=== PATIENT | female | born 1950 | race Caucasian/White ===

== ENCOUNTER 2016-05-12 12:53 | Outpatient (CLI) | payer OTHER, MEDICARE, MEDICAID ==
[~2016-05-12] VITALS: Ht 167.6 cm; Wt 120.0 kg
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
[2016-05-12] MEDS ORDERED: ASCO1TAB36 PO (13:16)
[2016-05-12] MEDS ORDERED: VITA1CAP PO (13:16)
[2016-05-12] MEDS ORDERED: ASPI-999 PO (13:16)
[2016-05-12] MEDS ORDERED: LORA10TA54 PO (13:16)
[2016-05-12] MEDS ORDERED: METF500T4 PO (13:16)
[2016-05-12] MEDS ORDERED: LISI-556 PO (13:16)
[2016-05-12] MEDS ORDERED: MELO7.5T46 PO (13:16)
[2016-05-12] MEDS ORDERED: FURO40TA4 PO (13:16)
[2016-05-12] MEDS ORDERED: GLUC1CAP37 PO (13:16)
[2016-05-12] MEDS ORDERED: ACET-2650 PO (13:16)
[2016-05-12] MEDS ORDERED: CHOL20003 PO (13:16)
[2016-05-12] MEDS ORDERED: CARV25TA PO (13:16)
[2016-05-12] MEDS ORDERED: UBID200C16 PO (13:16)
[2016-05-12] MEDS ORDERED: MULT-35 PO (13:16)
[2016-05-12] MEDS ORDERED: FLUT9.9S NS (13:16)
[2016-05-12] MEDS ORDERED: RANI-515 PO (13:16)
[2016-05-12] MEDS ORDERED: GLIM4TAB PO (13:16)
[2016-05-12] MEDS ORDERED: SIMV40TA4 PO (13:16)
[2016-05-12 13:25] VITALS: BP 127/70
[2016-05-12 14:17] LABS: BASOPHILS # (AUTO) 0.1 10^3/uL (0.0-0.1); BASOPHILS % (AUTO) 1 % (0-10); EOSINOPHILS # (AUTO) 0.2 10^3/uL (0.0-0.3); EOSINOPHILS % (AUTO) 3 % (0-10); LYMPHOCYTES # (AUTO) 1.6 X 10^3 (1.0-4.0); LYMPHOCYTES % (AUTO) 22 % (12-44); MEAN CORPUSCULAR HEMOGLOBIN 30 PG (25-34); MEAN CORPUSCULAR HGB CONC 33 G/DL (32-36); MEAN CORPUSCULAR VOLUME 91 FL (80-99); MEAN PLATELET VOLUME 10.6 FL (7.4-10.4); MONOCYTES # (AUTO) 0.5 X 10^3 (0.0-1.0); MONOCYTES % (AUTO) 6 % (0-12); NEUTROPHILS # (AUTO) 5.2 X 10^3 (1.8-7.8); NEUTROPHILS % (AUTO) 69 % (42-75); PLATELET COUNT 262 10^3/uL (130-400); RED BLOOD COUNT 4.25 10^6/uL (4.35-5.85); RED CELL DISTRIBUTION WIDTH 12.5 % (10.0-14.5); WHITE BLOOD COUNT 7.5 10^3/uL (4.3-11.0)
[2016-05-12 14:39] LABS: ALBUMIN 4.3 G/DL (3.2-4.5); BILIRUBIN,TOTAL 0.4 MG/DL (0.1-1.0); CALCIUM 9.6 MG/DL (8.5-10.1); CREATININE SERUM 1.53 MG/DL (0.60-1.30); POTASSIUM 3.7 MMOL/L (3.6-5.0)
== END 2016-05-12 16:05 | disposition home or self-care (01) ==
LOC: PREOP 12:53
PROVIDERS: ATTEND Orthopaedic Surgery
DX: Z01.810 Encounter for preprocedural cardiovascular examination (principal); Z01.812 Encounter for preprocedural laboratory examination; Z11.2 Encounter for screening for other bacterial diseases; S43.422A Sprain of left rotator cuff capsule, initial encounter; V99.XXXA Unspecified transport accident, initial encounter; Y99.8 Other external cause status
CPT/HCPCS: 36415; 80053; 85025; 87081; 93005

== ENCOUNTER 2016-05-19 08:10 | Day surgery (SDC) | payer OTHER, MEDICARE, MEDICAID ==
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
[~2016-05-19] VITALS: Ht 167.6 cm; Wt 120.0 kg
[~2016-05-19 08:10] MED LIST: ACET-2650 PO; ASCO1TAB36 PO; ASPI-999 PO; CARV25TA PO; CHOL20003 PO; FLUT9.9S NS; FURO40TA4 PO; GLIM4TAB PO; GLUC1CAP37 PO; LISI-556 PO; LORA10TA54 PO; MELO7.5T46 PO; METF500T4 PO; MULT-35 PO; RANI-515 PO; SIMV40TA4 PO; UBID200C16 PO; VITA1CAP PO
[2016-05-19] MEDS ORDERED: CLINDAMYCIN 600 MG/50 ML IVPB 50 ML IV ONE ×2 (08:14→08:15)
--- NOTE | 2016-05-19 08:41 | Progress Note-Pre Operative ---
Pre-Operative Progress Note H&P Reviewed The H&P was reviewed, patient examined and no changes noted. Date H&P Reviewed: May 19, 2016 Time H&P Reviewed: 08:41 Pre-Operative Diagnosis: left rotator cuff tear and acromioclavicular post traumatic arthritis WANDA FAY MD May 19, 2016 08:41
[2016-05-19 08:44] VITALS: BP 116/65
--- NOTE | 2016-05-19 08:44 | Progress Note-Post Operative ---
Post-Operative Progess Note Intensivist Geovanny Garibay Pre-Operative Diagnosis left rotator cuff tear and acromioclavicular post traumatic arthritis Post-Operative Diagnosis left rotator cuff tear, SLAP tear and post traumatic acromioclavicular arthritis Post-Op Procedure Note Date of Procedure: May 19, 2016 Name of Procedure: left shoulder arthroscopic biceps tenotomy, acromioplasty, distal clavicle excision and open rotator cuff repair Anesthesia Type GETA plus interscalene block Estimated blood loss (mL): minimal Packing: none Specimen(s) collected none WANDA FAY MD May 19, 2016 08:43
[2016-05-19] MEDS ORDERED: ROPIVACAINE 5MG/ML 30ML VIAL ONE (08:57)
[2016-05-19] MEDS ORDERED: MIDAZOLAM 2 MG/2 ML (VERSED) VIAL ONE ×2 (08:58)
[2016-05-19] MEDS ORDERED: oxyCODONE/APAP 5/325MG (PERCOCET 5) TABLET PO PRN (09:00)
[2016-05-19] MEDS ORDERED: morphine PF (DURAMORPH) 10 MG/10 ML AMP ONE (09:08)
[2016-05-19] MEDS ORDERED: BUPIVACAINE 0.25% 30 ML (SENSORCAINE) VIAL ONE (09:08)
[2016-05-19] MEDS ORDERED: SUCCINYLCHOLINE INJ 100 MG/5 ML SYR ONE (09:22)
[2016-05-19] MEDS ORDERED: proPOfol 200 MG/20 ML (DIPRIVAN) VIAL IV ONE (09:22)
[2016-05-19] MEDS ORDERED: LIDOCAINE PF 2% 10 ML (XYLOCAINE) AMP ONE (09:22)
[2016-05-19] MEDS ORDERED: SEVOFLURANE (ULTANE) 15 ML INHAL SOLN ONE ×2 (09:22→11:21)
[2016-05-19] MEDS ORDERED: fentaNYL INJECTION 100 MCG/2 ML AMP ONE (09:22)
[2016-05-19] MEDS ORDERED: ONDANSETRON 4 MG/2 ML (SDV) Z0FRAN ONE (09:22)
[2016-05-19] MEDS ORDERED: LACTATED RINGERS 1,000 ML IV ONE ×2 (09:22→11:06)
[2016-05-19] MEDS ORDERED: FAMOTIDINE 20MG/2ML IV (PEPCID) IV ONE (09:30)
[2016-05-19] MEDS: LACTATED RINGERS 1,000 ML IV PRN ×2 (09:31→11:12)
[2016-05-19] MEDS ORDERED: ROCURONIUM 50 MG/5 ML (ZEMURON) VIAL IV ONE (10:38)
[2016-05-19] MEDS ORDERED: NEOSTIGMINE (BLOXIVERZ ) 1 MG/1ML 10 ML VIAL ONE (10:48)
[2016-05-19] MEDS ORDERED: GLYCOPYRROLATE 0.2 MG/ML (ROBINUL) 2 ML VIAL ONE (10:48)
[2016-05-19] MEDS ORDERED: MEPERIDINE (DEMEROL) INJ 50 MG/ML IVP PRN (11:45)
[2016-05-19] MEDS ORDERED: ONDANSETRON 4 MG/2 ML (SDV) Z0FRAN IVP PRN (11:45)
[2016-05-19] MEDS ORDERED: morphine INJ 10 MG/ML 1ML (SYR OR VIAL) IVP PRN (11:45)
[2016-05-19 12:50] VITALS: BP 111/72
[2016-05-19 13:20] VITALS: BP 109/57
[2016-05-19] MEDS ORDERED: OXYC-471 PO (13:40)
[2016-05-19 13:50] VITALS: BP 105/57
--- NOTE | 2016-05-19 14:34 | Anesthesia-Peripheral Nerve Bl ---
Procedure Start/Stop Time Date of Procedure: May 19, 2016 Start Time: 09:07 Stop Time: 09:15 Peripheral Nerve Block Peripheral Nerve Blockade Risk/Benefits/Alternatives discussed, including IV injection leading to complications or seizures, nerve irritation or damage, pneumothorax, total spinal anesthesia, injection, and/or bleeding. Approach: left interscalene Indication: Surgical Anesthesia Specifically requested for management of pain by: Patient Condition Vital Signs Vital Signs Date Time Temp Pulse Resp B/P Pulse Ox O2 Delivery O2 Flow Rate FiO2 05/19/16 08:44 97.6 79 16 116/65 97 Room Air Patient Condition: Awake Indication torn left rotator cuff Procedure Prepartation: Chlorhexidine Position: Supine Charlotte: Short-bevel Needle (s) Size: 22g 2" Technique: Infiltration, Nerve Stimulation Motor response or parethesia o: strong biceps with some deltoid reponse at .6 ma mA: 0.6 Depth (cm): 1 Sedation Given: Midazolam Injectate: ropivacaine Concentration %: 0.5 Volume (ml): 30 Epinephrine used: No Narrative Injection was made incrementally with constant monitoring. Aspiration every (mls): 5 Blood Aspirated: No Pain on injection noted: No Normal Resistance on injection: Yes Events Events: None:easy well tolerated Sucess: Complete Patient Conditon Post Peripheral Nerve Block Post Peripheral Nerve Block Vital Signs: Blood Pressure: Systolic Diastolic Heart Rate Blood Pressure Systolic: 116 Blood Pressure Diastolic: 65 Pulse Rate (adult): 79 CYNTHIA ESPINOZA CRNA May 19, 2016 14:34
[2016-05-19] MEDS ORDERED: ONDANSETRON 4 MG/2 ML (SDV) Z0FRAN IVP ONE (14:45)
[2016-05-19] MEDS ORDERED: PROMETHAZINE INJ 25 MG/ML (PHENERGAN) AMP IVP ONE (16:15)
[2016-05-19 17:35] VITALS: BP 105/57
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
== END 2016-05-19 17:35 | disposition home or self-care (01) ==
LOC: SDC 08:10
PROVIDERS: ATTEND Orthopaedic Surgery
DX: S46.012A Strain of muscle(s) and tendon(s) of the rotator cuff of left shoulder, initial encounter (principal); M19.112 Post-traumatic osteoarthritis, left shoulder; S43.432A Superior glenoid labrum lesion of left shoulder, initial encounter; V99.XXXA Unspecified transport accident, initial encounter; Y99.8 Other external cause status; E11.9 Type 2 diabetes mellitus without complications; I10 Essential (primary) hypertension; E78.5 Hyperlipidemia, unspecified; K21.9 Gastro-esophageal reflux disease without esophagitis; Z79.899 Other long term (current) drug therapy
CPT/HCPCS: 82962

== ENCOUNTER → 2017-05-12 | Outpatient (CLI) | payer MEDICARE, MEDICAID ==
[~2017-05-12] MED LIST changes: +LORA-714 PO; -LORA10TA54 PO; +OXYC-471 PO
== END ==
LOC: RAD 14:14
PROVIDERS: ATTEND Family Medicine
DX: Z12.31 Encounter for screening mammogram for malignant neoplasm of breast (principal)
CPT/HCPCS: 77067

== ENCOUNTER → 2017-09-22 | Outpatient (CLI) | payer MEDICARE, MEDICAID ==
[~2017-09-22] MED LIST changes: -METF500T4 PO; +METF500T5 PO
== END ==
LOC: CARD 13:13
PROVIDERS: ATTEND Internal Medicine Cardiovascular Disease
DX: I50.9 Heart failure, unspecified (principal); E11.9 Type 2 diabetes mellitus without complications; R60.0 Localized edema; Z90.12 Acquired absence of left breast and nipple; I08.1 Rheumatic disorders of both mitral and tricuspid valves
CPT/HCPCS: 93306

== ENCOUNTER → 2017-09-26 | Outpatient (CLI) | payer MEDICARE, MEDICAID ==
[~2017-09-26] VITALS: Ht 167.6 cm; Wt 116.1 kg
[~2017-09-26] MED LIST changes: +CATHETER FLUSH 10 ML SYR IV PRN; +REGADENOSON 0.4 MG/5 ML SYR (LEXISCAN) IV ONE
[2017-09-26 09:07] VITALS: BP 140/75
[2017-09-26 09:11] VITALS: BP 98/65
[2017-09-26 09:13] VITALS: BP 124/68
--- NOTE | 2017-09-26 15:08 | STRESS TEST ---
DATE OF SERVICE: 09/26/2017 LEXISCAN MYOVIEW STRESS TEST REPORT REFERRING PHYSICIAN: Dr. Zackery Jensen. Baseline heart rate is 66. Baseline blood pressure 140/75. Baseline EKG sinus rhythm with no ischemic changes. In summary, the patient was injected with 10.92 mCi of technetium-99 Myoview and the resting images were obtained. Then, the patient received 0.4 mg of Lexiscan followed by 29.0 mCi of technetium-99 Myoview. Throughout the test, there were no EKG changes. The resting and stress images were reviewed and compared in the short axis, horizontal long axis, and vertical long axis views. Review of the images showed extracardiac attenuation with increase gastric and intestinal uptake affecting the quality of the images. There is a decrease uptake involving the basal to mid inferior wall and inferolateral wall, which is fixed with no significant reversibility. SSS is 7, SDS 1, TID value 0.98. On the gated images, the left ventricle appeared to be normal size with hypokinesia at the inferior wall. Calculated ejection fraction 48%. CONCLUSION: 1. The patient tolerated Lexiscan well. 2. Extracardiac attenuation affecting the quality of the images with fixed defect at the inferior wall and inferolateral wall. 3. Prominent left ventricle with diffuse left ventricular hypokinesia, more pronounced at the inferior wall and the inferolateral wall with calculated ejection fraction 48%. Job ID: [id number] DocumentID: [id number] Dictated Date: 09/26/2017 11:44:12 Client Business Manager Date: 09/26/2017 15:08:09 Dictated By: NANCY NUNEZ MD
== END ==
LOC: CARD 07:17
PROVIDERS: ATTEND Internal Medicine Cardiovascular Disease
DX: I50.9 Heart failure, unspecified (principal); E11.9 Type 2 diabetes mellitus without complications; R60.0 Localized edema; Z90.12 Acquired absence of left breast and nipple
CPT/HCPCS: 78452; 93017

== ENCOUNTER 2018-01-01 17:25 | Emergency (ER) | payer MEDICARE, MEDICAID ==
[~2018-01-01] VITALS: Ht 162.6 cm; Wt 81.6 kg
[~2018-01-01 17:25] MED LIST changes: -CATHETER FLUSH 10 ML SYR IV PRN; +LORA10TA7 PO; +METF-397 PO; -METF500T5 PO; +MULT-974 PO; -REGADENOSON 0.4 MG/5 ML SYR (LEXISCAN) IV ONE
--- OUTSIDE RECORDS SUMMARY | 2018-01-01 17:30 | XMS REPORT ---
Author Author KRISTAL NICHOLSON Organization [facility] Address [address] [place] [address] Care Team Providers Care Music Composer Name Role Phone KRISTAL NICHOLSON Unavailable PROBLEMS Type Condition ICD9-CM Code AHD00-AE Code Onset Dates Condition Status SNOMED Code Problem Type 2 diabetes mellitus without complication, without long-term current use of insulin E11.9 Active 531333119 Problem Arthritis M19.90 Active 7794399 Problem Reactive depression F32.9 Active 29430342 Problem Malignant neoplasm of left female breast, unspecified estrogen receptor status, unspecified site of breast C50.912 Active 540320702 Problem Chronic diastolic CHF (congestive heart failure) I50.32 Active 987647810 Problem Status post left mastectomy Z90.12 Active 512456210 Problem Depression, reactive F32.9 Active 05653417 Problem Psychophysiological insomnia F51.04 Active 434889198 Problem BMI 35.0-35.9,adult Z68.35 Active 690142045 Problem CKD (chronic kidney disease) stage 2, GFR 60-89 ml/min N18.2 Active 429806220 Problem Essential hypertension I10 Active 35706798 Problem Chronic kidney disease (CKD) stage G3b/A1, moderately decreased glomerular filtration rate (GFR) between 30-44 mL/min/1.73 square meter and albuminuria creatinine ratio less than 30 mg/g N18.3 Active 641925208 Problem Fibromyalgia M79.7 Active 536132170 ALLERGIES No Information ENCOUNTERS Encounter Location Date Diagnosis [facility] [id number] [address] Jan, [facility] [id number] [address] Dec, 2017 Strain of right shoulder, initial encounter S46.911A [facility] [id number], [place] [address] Dec, Type 2 diabetes mellitus without complication, without long- term current use of insulin E11.9 ; Chronic kidney disease (CKD) stage G3b/A1, moderately decreased glomerular filtration rate (GFR) between 30-44 mL/min/1.73 square meter and albuminuria creatinine ratio less than 30 mg/g N18.3 ; BMI 35.0 -35.9,adult Z68.35 ; Anemia, unspecified type D64.9 and Psychophysiological insomnia F51.04 [address] [id number] [place] [address] Nov, Fibromyalgia M79.7 [place] [address] [address] Nov, CKD (chronic kidney disease) stage 2, GFR 60-89 ml/min N18.2 [place] [address] [address] Nov, Chronic kidney disease (CKD) stage G3b/A1, moderately decreased glomerular filtration rate (GFR) between 30-44 mL/min/1.73 square meter and albuminuria creatinine ratio less than 30 mg/g N18.3 [place] [id number] [place] [address] Nov, Chronic kidney disease (CKD) stage G3b/A1, moderately decreased glomerular filtration rate (GFR) between 30-44 mL/min/1.73 square meter and albuminuria creatinine ratio less than 30 mg/g N18.3 and CKD (chronic kidney disease) stage 2, GFR 60-89 ml/min N18.2 [place] [id number] [place] [address] 09 Nov, 2017 CKD (chronic kidney disease) stage 2, GFR 60-89 ml/min N18.2 and Chronic kidney disease (CKD) stage G3b/A1, moderately decreased glomerular filtration rate (GFR) between 30-44 mL/min/1.73 square meter and albuminuria creatinine ratio less than 30 mg/g N18.3 [place] [id number] [place] [address] Nov, Fibromyalgia M79.7 ; Pain of left foot M79.672 and Pain in right foot M79.[address] [address] 17 Oct, 2017 Acute cystitis without hematuria N30.00 and Left foot pain M79.[address] [address] Oct, [address] [address] Oct, Chronic kidney disease (CKD) stage G3b/A1, moderately decreased glomerular filtration rate (GFR) between 30-44 mL/min/1.73 square meter and albuminuria creatinine ratio less than 30 mg/g N18.3 and BMI 40.0-44.9 , adult Z68.[address] [address] Oct, Chronic kidney disease (CKD) stage G3b/A1, moderately decreased glomerular filtration rate (GFR) between 30-44 mL/min/1.73 square meter and albuminuria creatinine ratio less than 30 mg/g N18.[address] [address] 20 Sep, 2017 Type 2 diabetes mellitus without complication, without long- term current use of insulin E11.[address] [address] 12 Sep, 2017 Left foot pain M79.672 ; Bilateral edema of lower extremity R60.0 ; Chronic diastolic CHF (congestive heart failure) I50.32 and Chronic kidney disease (CKD) stage G3b/A1, moderately decreased glomerular filtration rate (GFR) between 30-44 mL/min/1.73 square meter and albuminuria creatinine ratio less than 30 mg/g N18.3 [place] [id number] [place] [address] 05 Sep, 2017 Side effect of medication T88.7XXA ; Peripheral edema R60.9 and Chronic kidney disease (CKD) stage G3b/A1, moderately decreased glomerular filtration rate (GFR) between 30-44 mL/min/1.73 square meter and albuminuria creatinine ratio less than 30 mg/g N18.3 [place] [address] [place] [address] Sep, [place] [id number] [place] [address] August, CKD (chronic kidney disease) stage 2, GFR 60-89 ml/min N18.2 [place] [id number] [place] [address] August, Chronic diastolic CHF (congestive heart failure) I50.32 ; CKD (chronic kidney disease) stage 2, GFR 60-89 ml/min N18.2 ; BMI 40.0-44.9, adult Z68.41 and Fibromyalgia M79.7 [place] [id number] [place] [address] August, [place] [id number] [place] [address] August, [place] [id number] [place] [address] Jul, Medicare annual wellness visit, initial Z00.00 ; BMI 40.0- 44.9, adult Z68.41 ; Type 2 diabetes mellitus without complication, without long -term current use of insulin E11.9 ; Reactive depression F32.9 ; Essential hypertension I10 ; Status post left mastectomy Z90.12 ; Chronic diastolic CHF ( congestive heart failure) I50.32 ; CKD (chronic kidney disease) stage 2, GFR 60- 89 ml/min N18.2 and Encounter for immunization Z23 [place] [id number] [place] [address] Jul, Localized swelling of both lower legs R22.43 ; Essential hypertension I10 ; Chronic diastolic CHF (congestive heart failure) I50.32 ; BMI 40.0-44.9, adult Z68.41 and CKD (chronic kidney disease) stage 2, GFR 60-89 ml/min N18.2 [place] [address] [address] Jul, [place] [address] [address] Jun, [place] [address] [place] [address] Jun, Elevated serum creatinine R79.89 [place] [address] [place] [address] May, Elevated serum creatinine R79.89 [place] [address] [place] [address] Apr, Chronic congestive heart failure, unspecified congestive heart failure type I50.9 ; Essential hypertension I10 ; Type 2 diabetes mellitus without complication, without long-term current use of insulin E11.9 ; Arthritis M19.90 ; Depression, reactive F32.9 ; Screening for lipid disorders Z13.220 ; Screening for breast cancer Z12.31 and BMI 40.0-44.9, adult Z68.41 [facility] [id number] [place] [id number] Feb, Dental examination Z01.20 [facility] [id number] [place] [id number] Nov, Dental examination Z01.20 [place] [address] [address] Oct, [facility] [address] [place] [phone] Apr, IMMUNIZATIONS No Known Immunizations SOCIAL HISTORY Never Assessed REASON FOR VISIT Future lab orders PLAN OF CARE VITAL SIGNS MEDICATIONS Unknown Medications RESULTS No Results PROCEDURES No Known procedures INSTRUCTIONS MEDICATIONS ADMINISTERED No Known Medications MEDICAL (GENERAL) HISTORY Type Description Date Medical History Congestive Heart Failure Medical History Pneumonia Medical History Bronchitis Medical History Type II Diabetes Medical History Cancer/ breast cancer masectomy Left Medical History Chemotherapy Medical History Blood transfusion/ 2014 Medical History Arthritis Medical History Back Trouble / degenerative disc Medical History Hives/penicillin induced Medical History HBP Medical History mild renal impairment Surgical History Left Masectomy Surgical History Lung infection Surgical History L. Rotator cuff Surgical History R. Ankle/ due to broken bones Surgical History Cardiac Cath 09/2017 Hospitalization History Congestive Heart Failure 2010 Hospitalization History past surgery
--- OUTSIDE RECORDS SUMMARY | 2018-01-01 17:31 | XMS REPORT ---
Author Author KRISTAL NICHOLSON Organization [facility] Address [address] [place] [address] Care Team Providers Care Laborer Electroplating Name Role Phone KRISTAL NICHOLSON Unavailable PROBLEMS Type Condition ICD9-CM Code [id number] Code Onset Dates Condition Status SNOMED Code Problem Type 2 diabetes mellitus without complication, without long-term current use of insulin E11.9 Active 245522953 Problem Arthritis M19.90 Active 4954917 Problem Reactive depression F32.9 Active 93125886 Problem Malignant neoplasm of left female breast, unspecified estrogen receptor status, unspecified site of breast C50.912 Active 148337473 Problem Chronic diastolic CHF (congestive heart failure) I50.32 Active 106325979 Problem Status post left mastectomy Z90.12 Active 733150163 Problem Depression, reactive F32.9 Active 95512040 Problem Psychophysiological insomnia F51.04 Active 152270864 Problem BMI 35.0-35.9,adult Z68.35 Active 030571886 Problem CKD (chronic kidney disease) stage 2, GFR 60-89 ml/min N18.2 Active 704663078 Problem Essential hypertension I10 Active 36052126 Problem Chronic kidney disease (CKD) stage G3b/A1, moderately decreased glomerular filtration rate (GFR) between 30-44 mL/min/1.73 square meter and albuminuria creatinine ratio less than 30 mg/g N18.3 Active 268003591 Problem Fibromyalgia M79.7 Active 712299578 ALLERGIES Substance Reaction Event Type Date Status Penicillin V Potassium anaphylaxis Drug Allergy Sep, Active Lyrica Unknown Drug Allergy Sep, Active Darvocet-N 100 anaphylaxis Drug Allergy Sep, Active ENCOUNTERS Encounter Location Date Diagnosis [facility] [address] [facility] [id number], [place] [address] Jan, [facility] [address] [facility] [id number], [place] [address] Dec, Type 2 diabetes mellitus without complication, without long- term current use of insulin E11.9 ; Chronic kidney disease (CKD) stage G3b/A1, moderately decreased glomerular filtration rate (GFR) between 30-44 mL/min/1.73 square meter and albuminuria creatinine ratio less than 30 mg/g N18.3 ; BMI 35.0 -35.9,adult Z68.35 ; Anemia, unspecified type D64.9 and Psychophysiological insomnia F51.04 [place] [address] [address] Nov, Fibromyalgia M79.7 [place] [address] [address] Nov, CKD (chronic kidney disease) stage 2, GFR 60-89 ml/min N18.2 [place] [address] [address] Nov, Chronic kidney disease (CKD) stage G3b/A1, moderately decreased glomerular filtration rate (GFR) between 30-44 mL/min/1.73 square meter and albuminuria creatinine ratio less than 30 mg/g N18.3 [place] [address] [id number] [place] [address] Nov, Chronic kidney disease (CKD) stage G3b/A1, moderately decreased glomerular filtration rate (GFR) between 30-44 mL/min/1.73 square meter and albuminuria creatinine ratio less than 30 mg/g N18.3 and CKD (chronic kidney disease) stage 2, GFR 60-89 ml/min N18.2 [place] [address] [id number] [place] [address] Nov, CKD (chronic kidney disease) stage 2, GFR 60-89 ml/min N18.2 and Chronic kidney disease (CKD) stage G3b/A1, moderately decreased glomerular filtration rate (GFR) between 30-44 mL/min/1.73 square meter and albuminuria creatinine ratio less than 30 mg/g N18.3 [place] [address] [address] Nov, Fibromyalgia M79.7 ; Pain of left foot M79.672 and Pain in right foot M79.[address] [address] 17 Oct, 2017 Acute cystitis without hematuria N30.00 and Left foot pain M79.[address] [address] Oct, [place] [address] [address] Oct, Chronic kidney disease (CKD) stage G3b/A1, moderately decreased glomerular filtration rate (GFR) between 30-44 mL/min/1.73 square meter and albuminuria creatinine ratio less than 30 mg/g N18.3 and BMI 40.0-44.9 , adult Z68.[address] [address] Oct, Chronic kidney disease (CKD) stage G3b/A1, moderately decreased glomerular filtration rate (GFR) between 30-44 mL/min/1.73 square meter and albuminuria creatinine ratio less than 30 mg/g N18.[address] [address] 20 Sep, 2017 Type 2 diabetes mellitus without complication, without long- term current use of insulin E11.[address] [address] Sep, Left foot pain M79.672 ; Bilateral edema of lower extremity R60.0 ; Chronic diastolic CHF (congestive heart failure) I50.32 and Chronic kidney disease (CKD) stage G3b/A1, moderately decreased glomerular filtration rate (GFR) between 30-44 mL/min/1.73 square meter and albuminuria creatinine ratio less than 30 mg/g N18.3 [place] [id number] [place] [address] 05 Sep, 2017 Side effect of medication T88.7XXA ; Peripheral edema R60.9 and Chronic kidney disease (CKD) stage G3b/A1, moderately decreased glomerular filtration rate (GFR) between 30-44 mL/min/1.73 square meter and albuminuria creatinine ratio less than 30 mg/g N18.3 [place] [address] [id number] [place] [address] Sep, [place] [address] [place] [id number] [place] [address] August, CKD (chronic kidney disease) stage 2, GFR 60-89 ml/min N18.2 [place] [address] [place] [id number] [place] [address] August, Chronic diastolic CHF (congestive heart failure) I50.32 ; CKD (chronic kidney disease) stage 2, GFR 60-89 ml/min N18.2 ; BMI 40.0-44.9, adult Z68.41 and Fibromyalgia M79.7 [place] [id number] [place] [address] August, [place] [address] [place] [id number] [place] [address] August, [place] [id number] [place] [address] Jul, Medicare annual wellness visit, initial Z00.00 [...] ml/min N18.2 and Encounter for immunization Z23 [place] [id number] [place] [address] Jul, Localized swelling of both lower legs R22.43 ; Essential hypertension I10 ; Chronic diastolic CHF (congestive heart failure) I50.32 ; BMI 40.0-44.9, adult Z68.41 and CKD (chronic kidney disease) stage 2, GFR 60-89 ml/min N18.2 [facility] [address] [address] Jul, [facility] [address] [place] [id number] [place] [address] Jun, [facility] [address] [place] [id number] [place] [address] Jun, Elevated serum creatinine R79.89 [place] [address] [place] [id number] [place] [address] May, Elevated serum creatinine R79.89 [place] [address] [place] [id number] [place] [address] Apr, Chronic congestive heart failure, unspecified congestive heart failure type I50.9 ; Essential hypertension I10 ; Type 2 diabetes mellitus without complication, without long-term current use of insulin E11.9 ; Arthritis M19.90 ; Depression, reactive F32.9 ; Screening for lipid disorders Z13.220 ; Screening for breast cancer Z12.31 and BMI 40.0-44.9, adult Z68.41 [facility] [address] [id number] [place] [id number] Feb, Dental examination Z01.20 [facility] [address] [address] [id number] [place] [id number] Nov, Dental examination Z01.20 [place] [address] [place] [address] Oct, [facility] [address] [place] [address] [id number] [place] [phone] Apr, IMMUNIZATIONS Vaccine Route Administration Date Status TORADOL (IM) 60 MG/2ML (UP TO 15 MG) IM Intramuscular September 20, 2017 Administered SOCIAL HISTORY Never Assessed REASON FOR VISIT Edema-JERRY diaz PLAN OF CARE Activity Details Follow Up 3 Months with Mitesh goncalves cardio testing Reason: VITAL SIGNS Height 65.75 in 2017-09-20 Weight 249.6 lbs 2017-09-20 Temperature 97.9 degrees Fahrenheit 2017-09-20 Heart Rate 84 bpm 2017-09-20 Respiratory Rate 20 2017-09-20 BMI 40.59 kg/m2 2017-09-20 Blood pressure systolic 80 mmHg 2017-09-20 Blood pressure diastolic 52 mmHg 2017-09-20 MEDICATIONS Medication Instructions Dosage Frequency Start Date End Date Duration Status Super B-Complex - Orally Once a day 1 capsule 24h Active Carvedilol 25 MG Orally 2 times a day 2 tablets 12h Active Claritin 10 MG Orally Once a day 1 tablet 24h Active Vitamin D-3 1000 UNIT Orally Once a day 1 capsule 24h Active Ranitidine HCl 150 MG Orally twice a day 1 tablet 12h Active Flunisolide 25 MCG/ACT (0.025%) Nasally Twice a day 2 sprays in each nostril 12h Active Simvastatin 40 mg Orally Once a day 1 tablet 24h Active Furosemide 40 mg Orally Once a day 1 tablet 24h Active Metformin HCl 500 mg Orally Twice a day 2 tablets 12h Active Multivitamins - Orally Once a day 1 capsule 24h Active Lisinopril 5 mg Orally Once a day 1 tablet 24h Active Tylenol 8 Hour Arthritis Pain 650 MG Orally 2 times a day 2 tablets as needed 12h Active Glimepiride 4 MG Orally twice a day 1 tablet 12h Active Co Q-10 200 MG Orally Once a day 1 capsule with a meal 24h Active Aspir-81 81 MG Orally Once a day 1 tablet 24h Active PredniSONE 20 mg Orally Once a day 1 tablet 24h Sep, Sep, 07 days Active Glucosamine Chondr 1500 Complx - Orally 2 times a day 1 capsule 12h Active Metolazone 5 mg Orally Once a day 1 tablet 24h Sep, 30 day(s) Active RESULTS Name Result Date Reference Range Xray : Foot, Left 2 views (IN HOUSE) 2017-09-20 PROCEDURES Procedure Date Ordered Result Body Site X-RAY EXAM OF FOOT September 20, 2017 TORADOL (IM) 60 MG/2ML (UP TO 15 MG) September 20, 2017 [facility] VISIT ESTABLISHED PATIENT September 20, 2017 THER/PROPH/DIAG INJ, SC/IM September 20, 2017 INSTRUCTIONS MEDICATIONS ADMINISTERED No Known Medications MEDICAL [...] Cath 09/2017 Hospitalization History Congestive Heart Failure 2009 Hospitalization History past surgery
--- OUTSIDE RECORDS SUMMARY | 2018-01-01 17:31 | XMS REPORT ---
Author Author KRISTAL NICHOLSON Organization [facility] Address [address] [place] [address] Care Team Providers Care Ship Scaler Name Role Phone KRISTAL NICHOLSON Unavailable PROBLEMS Type Condition ICD9-CM Code [id number] Code Onset Dates Condition Status SNOMED Code Problem Type 2 diabetes mellitus without complication, without long-term current use of insulin E11.9 Active 656048405 Problem Arthritis M19.90 Active 5827035 Problem Reactive depression F32.9 Active 32132063 Problem Malignant neoplasm of left female breast, unspecified estrogen receptor status, unspecified site of breast C50.912 Active 369739897 Problem Chronic diastolic CHF (congestive heart failure) I50.32 Active 011027482 Problem Status post left mastectomy Z90.12 Active 156554724 Problem Depression, reactive F32.9 Active 58090615 Problem Psychophysiological insomnia F51.04 Active 312946114 Problem BMI 35.0-35.9,adult Z68.35 Active 470813320 Problem CKD (chronic kidney disease) stage 2, GFR 60-89 ml/min N18.2 Active 967000404 Problem Essential hypertension I10 Active 01632614 Problem Chronic kidney disease (CKD) stage G3b/A1, moderately decreased glomerular filtration rate (GFR) between 30-44 mL/min/1.73 square meter and albuminuria creatinine ratio less than 30 mg/g N18.3 Active 482478831 Problem Fibromyalgia M79.7 Active 622839468 ALLERGIES No Information ENCOUNTERS Encounter Location Date Diagnosis [facility] [address] [facility] [id number], [place] [address] Jan, [facility] [address] [id number] [address] Dec, Strain of right shoulder, initial encounter S46.911A [facility] [address] [id number] [address] Dec, Type 2 diabetes mellitus without complication, without long- term current use of insulin E11.9 ; Chronic kidney disease (CKD) stage G3b/A1, moderately decreased glomerular filtration rate (GFR) between 30-44 mL/min/1.73 square meter and albuminuria creatinine ratio less than 30 mg/g N18.3 ; BMI 35.0 -35.9,adult Z68.35 ; Anemia, unspecified type D64.9 and Psychophysiological insomnia F51.04 [place] [address] [place] [id number] [place] [address] Nov, Fibromyalgia M79.7 [place] [address] [address] Nov, CKD (chronic kidney disease) stage 2, GFR 60-89 ml/min N18.2 [place] [address] [address] Nov, Chronic kidney disease (CKD) stage G3b/A1, moderately decreased glomerular filtration rate (GFR) between 30-44 mL/min/1.73 square meter and albuminuria creatinine ratio less than 30 mg/g N18.3 [place] [address] [place] [id number] [place] [address] Nov, Chronic kidney disease (CKD) stage G3b/A1, moderately decreased glomerular filtration rate (GFR) between 30-44 mL/min/1.73 square meter and albuminuria creatinine ratio less than 30 mg/g N18.3 and CKD (chronic kidney disease) stage 2, GFR 60-89 ml/min N18.2 [place] [address] [place] [id number] [place] [address] 09 Nov, 2017 CKD (chronic kidney disease) stage 2, GFR 60-89 ml/min N18.2 and Chronic kidney disease (CKD) stage G3b/A1, moderately decreased glomerular filtration rate (GFR) between 30-44 mL/min/1.73 square meter and albuminuria creatinine ratio less than 30 mg/g N18.3 [place] [address] [place] [id number] [place] [address] Nov, Fibromyalgia M79.7 ; Pain of left foot M79.672 and Pain in right foot M79.[address] [address] 17 Oct, 2017 Acute cystitis without hematuria N30.00 and Left foot pain M79.[address] [address] Oct, [address] [address] Oct, Chronic kidney disease (CKD) stage G3b/A1, moderately decreased glomerular filtration rate (GFR) between 30-44 mL/min/1.73 square meter and albuminuria creatinine ratio less than 30 mg/g N18.3 and BMI 40.0-44.9 , adult Z68.[address] [address] Oct, Chronic kidney disease (CKD) stage G3b/A1, moderately decreased glomerular filtration rate (GFR) between 30-44 mL/min/1.73 square meter and albuminuria creatinine ratio less than 30 mg/g N18.[address] [address]- [address] 20 Sep, 2017 Type 2 diabetes mellitus without complication, without long- term current use of insulin E11.[address] [address]- [address] 12 Sep, 2017 Left foot pain M79.672 ; Bilateral edema of lower extremity R60.0 ; Chronic diastolic CHF (congestive heart failure) I50.32 and Chronic kidney disease (CKD) stage G3b/A1, moderately decreased glomerular filtration rate (GFR) between 30-44 mL/min/1.73 square meter and albuminuria creatinine ratio less than 30 mg/g N18.3 [place] [id number] [place] [address] 05 Sep, 2017 Side effect of medication T88.7XXA ; Peripheral edema R60.9 and Chronic kidney disease (CKD) stage G3b/A1, moderately decreased glomerular filtration rate (GFR) between 30-44 mL/min/1.73 square meter and albuminuria creatinine ratio less than 30 mg/g N18.3 [place] [address] [place] [address] Sep, [place] [address] [place] [id number] [place] [address]- [address] August, CKD (chronic kidney disease) stage 2, GFR 60-89 ml/min N18.2 [place] [address] [place] [id number] [place] [address] 6[address]- 245[address] August, Chronic diastolic CHF (congestive heart failure) I50.32 ; CKD (chronic kidney disease) stage 2, GFR 60-89 ml/min N18.2 ; BMI 40.0-44.9, adult Z68.41 and Fibromyalgia M79.7 [place] [id number] [place] [address] 734[address]- [address] August, [place] [address] [place] [id number] [place] [address] 05349- 78[address] August, [place] [id number] [place] [address] 36[address]- [address] Jul, Medicare annual wellness visit, initial Z00.00 [...] ml/min N18.2 and Encounter for immunization Z23 [place] [id number] [place] [address] 27581- 3030 Jul, Localized swelling of both lower legs R22.43 ; Essential hypertension I10 ; Chronic diastolic CHF (congestive heart failure) I50.32 ; BMI 40.0-44.9, adult Z68.41 and CKD (chronic kidney disease) stage 2, GFR 60-89 ml/min N18.2 [place] [address], [place] [address] Jul, [place] [address] [place] [address] 287780- 80[address] Jun, [place] [address] [place] [id number] [place] [address] 70575- 1370 Jun, Elevated serum creatinine R79.89 [place] [id number] [place] [address] 009049- 6831 May, Elevated serum creatinine R79.89 [place] [address] [place] [id number] [place] [address] 861633- 6419 Apr, Chronic congestive heart failure, unspecified congestive heart failure type I50.9 ; Essential hypertension I10 ; Type 2 diabetes mellitus without complication, without long-term current use of insulin E11.9 ; Arthritis M19.90 ; Depression, reactive F32.9 ; Screening for lipid disorders Z13.220 ; Screening for breast cancer Z12.31 and BMI 40.0-44.9, adult Z68.41 [facility] [id number] [place] [id number] Feb, Dental examination Z01.20 [facility] [address] [place] [address] [id number] [place] [id number] Nov, Dental examination Z01.20 [place] [id number] [place] [address]64- 2546 Oct, [facility] [id number] [place] [address] [phone] Apr, IMMUNIZATIONS No Known Immunizations SOCIAL HISTORY Never Assessed REASON FOR VISIT Deferred lab PLAN OF CARE VITAL SIGNS MEDICATIONS Medication Instructions Dosage Frequency Start Date End Date Duration Status Furosemide 20 MG Orally Once a day 1 tablet 24h Active RESULTS No Results PROCEDURES No Known procedures [...]
--- OUTSIDE RECORDS SUMMARY | 2018-01-01 17:31 | XMS REPORT ---
Author Author KRISTAL NICHOLSON Organization [facility] Address [address] [place] [address] Care Team Providers Care Dough Mixing Machine Operator Name Role Phone KRISTAL NICHOLSON Unavailable PROBLEMS Type Condition ICD9-CM Code [id number]-BB Code Onset Dates Condition Status SNOMED Code Problem Type 2 diabetes mellitus without complication, without long-term current use of insulin E11.9 Active 235214664 Problem Arthritis M19.90 Active 0380127 Problem Reactive depression F32.9 Active 37058760 Problem Malignant neoplasm of left female breast, unspecified estrogen receptor status, unspecified site of breast C50.912 Active 547070692 Problem Chronic diastolic CHF (congestive heart failure) I50.32 Active 107228903 Problem Status post left mastectomy Z90.12 Active 254782091 Problem Depression, reactive F32.9 Active 26979153 Problem Psychophysiological insomnia F51.04 Active 417399506 Problem BMI 35.0-35.9,adult Z68.35 Active 146697946 Problem CKD (chronic kidney disease) stage 2, GFR 60-89 ml/min N18.2 Active 397938875 Problem Essential hypertension I10 Active 05717576 Problem Chronic kidney disease (CKD) stage G3b/A1, moderately decreased glomerular filtration rate (GFR) between 30-44 mL/min/1.73 square meter and albuminuria creatinine ratio less than 30 mg/g N18.3 Active 954689606 Problem Fibromyalgia M79.7 Active [id number] ALLERGIES No Information ENCOUNTERS Encounter Location Date Diagnosis [facility] [address] [facility] [id number] [address] 12 Jan, 2018 [facility] [address] [facility] [id number], [place] [address] 04 Dec, 2017 Type 2 diabetes mellitus without complication, without long- term current use of insulin E11.9 ; Chronic kidney disease (CKD) stage G3b/A1, moderately decreased glomerular filtration rate (GFR) between 30-44 mL/min/1.73 square meter and albuminuria creatinine ratio less than 30 mg/g N18.3 ; BMI 35.0 -35.9,adult Z68.35 ; Anemia, unspecified type D64.9 and Psychophysiological insomnia F51.04 [place] [address] [address] [id number] [place] [address] Nov, Fibromyalgia M79.7 [place] [address] [address] Nov, CKD (chronic kidney disease) stage 2, GFR 60-89 ml/min N18.2 [place] [address] [address] 17 Nov, 2017 Chronic kidney disease (CKD) stage G3b/A1, moderately decreased glomerular filtration rate (GFR) between 30-44 mL/min/1.73 square meter and albuminuria creatinine ratio less than 30 mg/g N18.3 [place] [address] [id number] [place] [address] Nov, Chronic kidney disease (CKD) stage G3b/A1, moderately decreased glomerular filtration rate (GFR) between 30-44 mL/min/1.73 square meter and albuminuria creatinine ratio less than 30 mg/g N18.3 and CKD (chronic kidney disease) stage 2, GFR 60-89 ml/min N18.2 [place] [address] [id number] [place] [address] 9[address]- [address] Nov, CKD (chronic kidney disease) stage 2, GFR 60-89 ml/min N18.2 and Chronic kidney disease (CKD) stage G3b/A1, moderately decreased glomerular filtration rate (GFR) between 30-44 mL/min/1.73 square meter and albuminuria creatinine ratio less than 30 mg/g N18.3 [place] [address] [id number] [place] [address]- [address] 03 Nov, 2017 Fibromyalgia M79.7 ; Pain of left foot M79.672 and Pain in right foot M79.671 [place] [address] [place] [address] [place] [address] 17 Oct, 2017 Acute cystitis without hematuria N30.00 and Left foot pain M79.672 [place] [address] [address] Oct, [place] [address] [address] Oct, Chronic kidney disease (CKD) stage G3b/A1, moderately decreased glomerular filtration rate (GFR) between 30-44 mL/min/1.73 square meter and albuminuria creatinine ratio less than 30 mg/g N18.3 and BMI 40.0-44.9 , adult Z68.41 [place] [address] [address] Oct, Chronic kidney disease (CKD) stage G3b/A1, moderately decreased glomerular filtration rate (GFR) between 30-44 mL/min/1.73 square meter and albuminuria creatinine ratio less than 30 mg/g N18.3 [place] [address] [address] Sep, Type 2 diabetes mellitus without complication, without long- term current use of insulin E11.9 [place] [address] [address] 12 Sep, 2017 Left foot pain M79.672 ; Bilateral edema of lower extremity R60.0 ; Chronic diastolic CHF (congestive heart failure) I50.32 and Chronic kidney disease (CKD) stage G3b/A1, moderately decreased glomerular filtration rate (GFR) between 30-44 mL/min/1.73 square meter and albuminuria creatinine ratio less than 30 mg/g N18.3 [place] [address] [address] 05 Sep, 2017 Side effect of medication T88.7XXA ; Peripheral edema R60.9 and Chronic kidney disease (CKD) stage G3b/A1, moderately decreased glomerular filtration rate (GFR) between 30-44 mL/min/1.73 square meter and albuminuria creatinine ratio less than 30 mg/g N18.3 [place] [address] [address] [id number] [place] [address]72- [address] Sep, [place] [address] [address] August, CKD (chronic kidney disease) stage 2, GFR 60-89 ml/min N18.2 [place] [address] [address]- [address] August, Chronic diastolic CHF (congestive heart failure) I50.32 ; CKD (chronic kidney disease) stage 2, GFR 60-89 ml/min N18.2 ; BMI 40.0-44.9, adult Z68.41 and Fibromyalgia M79.7 [place] [address] [address] August, [place] [address] [address]- [address] August, [place] [address] 24[address]- [address] Jul, Medicare annual wellness visit, initial Z00.00 [...] ml/min N18.2 and Encounter for immunization Z23 [place] [address] [address] [id number] [place] [address] 36279- 8702 Jul, Localized swelling of both lower legs R22.43 ; Essential hypertension I10 ; Chronic diastolic CHF (congestive heart failure) I50.32 ; BMI 40.0-44.9, adult Z68.41 and CKD (chronic kidney disease) stage 2, GFR 60-89 ml/min N18.2 [place] [address] [address] [id number] [place] [address] 63428- [address] Jul, [facility] [address] [place] [address] [id number]- [phone] Jun, [facility] [id number] [place] [address] [id number]- [phone] Jun, Elevated serum creatinine R79.89 [facility] [address] [id number] [place] [address] 21590- 4870 May, Elevated serum creatinine R79.89 [facility] [address] [address] [id number] [place] [address] [phone] Apr, Chronic congestive heart failure, unspecified congestive heart failure type I50.9 ; Essential hypertension I10 ; Type 2 diabetes mellitus without complication, without long-term current use of insulin E11.9 ; Arthritis M19.90 ; Depression, reactive F32.9 ; Screening for lipid disorders Z13.220 ; Screening for breast cancer Z12.31 and BMI 40.0-44.9, adult Z68.41 [facility] [id number] [place] [address] [phone] Feb, Dental examination Z01.20 [facility] [id number] [place] [phone] Nov, Dental examination Z01.20 [facility] [address] [id number] [place] [address] 32414- 25[address] Oct, [facility] [id number] [place] [address] [phone] Apr, IMMUNIZATIONS No Known Immunizations SOCIAL HISTORY Never Assessed REASON FOR VISIT Lab (walk-in) PLAN OF CARE VITAL SIGNS MEDICATIONS Unknown Medications RESULTS No Results PROCEDURES Procedure Date Ordered Result Body Site LAB NOT BILLED BY [facility] Nov 22, 2017 SINTIA RICHTER* Nov 22, 2017 INSTRUCTIONS MEDICATIONS ADMINISTERED No Known Medications [...]
--- OUTSIDE RECORDS SUMMARY | 2018-01-01 17:31 | XMS REPORT ---
Author Author OSBALDO CHRISTENSEN Organization [facility] Address [address] [place] [address] Care Team Providers Care Buyer Renter Name Role Phone AMPARO OSBALDO Unavailable PROBLEMS Type Condition ICD9-CM Code [id number] Code Onset Dates Condition Status SNOMED Code Problem Type 2 diabetes mellitus without complication, without long-term current use of insulin E11.9 Active 368312423 Problem Arthritis M19.90 Active 4128687 Problem Reactive depression F32.9 Active 54597288 Problem Malignant neoplasm of left female breast, unspecified estrogen receptor status, unspecified site of breast C50.912 Active 464868639 Problem Chronic diastolic CHF (congestive heart failure) I50.32 Active 935245284 Problem Status post left mastectomy Z90.12 Active 186793503 Problem Depression, reactive F32.9 Active 98942335 Problem Psychophysiological insomnia F51.04 Active 717743197 Problem BMI 35.0-35.9,adult Z68.35 Active 314530310 Problem CKD (chronic kidney disease) stage 2, GFR 60-89 ml/min N18.2 Active 633854862 Problem Essential hypertension I10 Active 92634566 Problem Chronic kidney disease (CKD) stage G3b/A1, moderately decreased glomerular filtration rate (GFR) between 30-44 mL/min/1.73 square meter and albuminuria creatinine ratio less than 30 mg/g N18.3 Active 312332684 Problem Fibromyalgia M79.7 Active 766600173 ALLERGIES Substance Reaction Event Type Date Status Penicillin V Potassium anaphylaxis Drug Allergy Nov, Active Lyrica Unknown Drug Allergy Nov, Active Darvocet-N 100 anaphylaxis Drug Allergy Nov, Active ENCOUNTERS Encounter Location Date Diagnosis [facility] [address] [facility] [id number] [address] Jan, [facility] [address] [facility] [id number] [address] Dec, Type 2 diabetes mellitus without complication, without long- term current use of insulin E11.9 ; Chronic kidney disease (CKD) stage G3b/A1, moderately decreased glomerular filtration rate (GFR) between 30-44 mL/min/1.73 square meter and albuminuria creatinine ratio less than 30 mg/g N18.3 ; BMI 35.0 -35.9,adult Z68.35 ; Anemia, unspecified type D64.9 and Psychophysiological insomnia F51.04 [place] [address] [address] Nov, Fibromyalgia M79.7 [place] [address] [address]- [address] Nov, CKD (chronic kidney disease) stage 2, GFR 60-89 ml/min N18.2 [place] [address] 23086- [address] Nov, Chronic kidney disease (CKD) stage G3b/A1, moderately decreased glomerular filtration rate (GFR) between 30-44 mL/min/1.73 square meter and albuminuria creatinine ratio less than 30 mg/g N18.3 [place] [address] [address]78- [address] Nov, Chronic kidney disease (CKD) stage G3b/A1, moderately decreased glomerular filtration rate (GFR) between 30-44 mL/min/1.73 square meter and albuminuria creatinine ratio less than 30 mg/g N18.3 and CKD (chronic kidney disease) stage 2, GFR 60-89 ml/min N18.2 [place] [address] [place] [id number] [place] [address] 43140- 2571 Nov, CKD (chronic kidney disease) stage 2, GFR 60-89 ml/min N18.2 and Chronic kidney disease (CKD) stage G3b/A1, moderately decreased glomerular filtration rate (GFR) between 30-44 mL/min/1.73 square meter and albuminuria creatinine ratio less than 30 mg/g N18.3 [place] [address] [address]- [address]658 Nov, Fibromyalgia M79.7 ; Pain of left foot M79.672 and Pain in right foot M79.671 [place] [address] [address]- [address] 17 Oct, 2017 Acute cystitis without hematuria N30.00 and Left foot pain M79.672 [place] [address] [address] Oct, [place] [address] 96[address]- 6[address] Oct, Chronic kidney disease (CKD) stage G3b/A1, moderately decreased glomerular filtration rate (GFR) between 30-44 mL/min/1.73 square meter and albuminuria creatinine ratio less than 30 mg/g N18.3 and BMI 40.0-44.9 , adult Z68.[address] [address] Oct, Chronic kidney disease (CKD) stage G3b/A1, moderately decreased glomerular filtration rate (GFR) between 30-44 mL/min/1.73 square meter and albuminuria creatinine ratio less than 30 mg/g N18.[address] 17[address]- [address] Sep, Type 2 diabetes mellitus without complication, without long- term current use of insulin E11.9 [place] [address] 36[address]- [address] Sep, Left foot pain M79.672 ; Bilateral edema of lower extremity R60.0 ; Chronic diastolic CHF (congestive heart failure) I50.32 and Chronic kidney disease (CKD) stage G3b/A1, moderately decreased glomerular filtration rate (GFR) between 30-44 mL/min/1.73 square meter and albuminuria creatinine ratio less than 30 mg/g N18.3 [place] [id number] [place] [address]- [address] 05 Sep, 2017 Side effect of medication T88.7XXA ; Peripheral edema R60.9 and Chronic kidney disease (CKD) stage G3b/A1, moderately decreased glomerular filtration rate (GFR) between 30-44 mL/min/1.73 square meter and albuminuria creatinine ratio less than 30 mg/g N18.3 [place] [id number] [place] [address] 78170- 2[address] Sep, [place] [address] [id number] [place] [address] 39028- 1434 August, CKD (chronic kidney disease) stage 2, GFR 60-89 ml/min N18.2 [place] [address] 857[address]- [address] August, Chronic diastolic CHF (congestive heart failure) I50.32 ; CKD (chronic kidney disease) stage 2, GFR 60-89 ml/min N18.2 ; BMI 40.0-44.9, adult Z68.41 and Fibromyalgia M79.[address] [address]- [address] August, [place] [address] [id number] [place] [address] 34393- 8[address] August, [place] [id number] [place] [address] 65231- 6126 Jul, Medicare annual wellness visit, initial Z00.00 [...] ml/min N18.2 and Encounter for immunization Z23 [place] [id number] [place] [address] 93745- 4987 Jul, Localized swelling of both lower legs R22.43 ; Essential hypertension I10 ; Chronic diastolic CHF (congestive heart failure) I50.32 ; BMI 40.0-44.9, adult Z68.41 and CKD (chronic kidney disease) stage 2, GFR 60-89 ml/min N18.2 [facility] [address] [address] Jul, [facility] [address] [place] [id number] [place] [address] 76423- 8896 Jun, [facility] [id number] [place] [address] 06869- 4116 Jun, Elevated serum creatinine R79.89 [facility] [address] [id number] [place] [address] 92046- 7536 May, Elevated serum creatinine R79.89 [place] [address] [id number] [place] [address] 03841- 9896 Apr, Chronic congestive heart failure, unspecified congestive heart failure type I50.9 ; Essential hypertension I10 ; Type 2 diabetes mellitus without complication, without long-term current use of insulin E11.9 ; Arthritis M19.90 ; Depression, reactive F32.9 ; Screening for lipid disorders Z13.220 ; Screening for breast cancer Z12.31 and BMI 40.0-44.9, adult Z68.41 [facility] [id number] [place] [address] [phone] Feb, Dental examination Z01.20 [facility] [id number] [place] [address] [phone] Nov, Dental examination Z01.20 [facility] [id number] [place] [address] 67644- 2546 Oct, [facility] [id number] [place] [address] [phone] Apr, IMMUNIZATIONS No Known Immunizations SOCIAL HISTORY Never Assessed REASON FOR VISIT Pain (acute) foot bilaterally x 2 days, swelling-awoods PLAN OF CARE Activity Details Follow Up 4 Weeks w PCP Reason:pain VITAL SIGNS Height 65.75 in 2017-11-11 Weight 241.7 lbs 2017-11-11 Temperature 98 degrees Fahrenheit 2017-11-11 Heart Rate 84 bpm 2017-11-11 Respiratory Rate 20 2017-11-11 BMI 39.30 kg/m2 2017-11-11 Blood pressure systolic 106 mmHg 2017-11-11 Blood pressure diastolic 74 mmHg 2017-11-11 MEDICATIONS Medication Instructions Dosage Frequency Start Date End Date Duration Status Hydrocodone-Acetaminophen 5-325 MG Orally every 6 hrs 1 tablet as needed 6h Nov, Nov, 07 days Active Multivitamins - Orally Once a day 1 capsule 24h Active Super B-Complex - Orally Once a day 1 capsule 24h Active Vitamin D-3 1000 UNIT Orally Once a day 1 capsule 24h Active Metformin HCl 500 mg Orally Twice a day 2 tablets 12h 30 Active Flunisolide 25 MCG/ACT (0.025%) Nasally Twice a day 2 sprays in each nostril 12h Active Lisinopril 5 mg Orally Once a day 1 tablet 24h 30 Active Ranitidine HCl 150 MG Orally twice a day 1 tablet 12h 30 Active Glimepiride 4 MG Orally twice a day 1 tablet 12h 30 Active Claritin 10 MG Orally Once a day 1 tablet 24h Active Co Q-10 200 MG Orally Once a day 1 capsule with a meal 24h Active Tylenol 8 Hour Arthritis Pain 650 MG Orally 2 times a day 2 tablets as needed 12h Active Furosemide 40 mg Orally Once a day 1 tablet 24h 30 Active Aspir-81 81 MG Orally Once a day 1 tablet 24h Active Cymbalta 30 MG Orally Once a day 1 capsule 24h Nov, 30 day(s) Active Carvedilol 25 MG Orally 2 times a day 2 tablets 12h 30 Active Glucosamine Chondr 1500 Complx - Orally 2 times a day 1 capsule 12h Active Simvastatin 40 mg Orally Once a day 1 tablet 24h 30 Active RESULTS No Results PROCEDURES Procedure Date Ordered Result Body Site [facility] VISIT ESTABLISHED PATIENT Nov 11, 2017 INSTRUCTIONS MEDICATIONS ADMINISTERED No Known Medications [...]
--- OUTSIDE RECORDS SUMMARY | 2018-01-01 17:31 | XMS REPORT ---
Author Author KRISTAL NICHOLSON Organization [facility] Address [address] [place] [address] Care Team Providers Care Hvac Project Engineer Name Role Phone KRISTAL NICHOLSON Unavailable PROBLEMS Type Condition ICD9-CM Code NSG00-[id number] Code Onset Dates Condition Status SNOMED Code Problem Type 2 diabetes mellitus without complication, without long-term current use of insulin E11.9 Active 534104122 Problem Arthritis M19.90 Active 9030261 Problem Reactive depression F32.9 Active 74245272 Problem Malignant neoplasm of left female breast, unspecified estrogen receptor status, unspecified site of breast C50.912 Active 627620361 Problem Chronic diastolic CHF (congestive heart failure) I50.32 Active 978144455 Problem Status post left mastectomy Z90.12 Active 752208977 Problem Depression, reactive F32.9 Active 95347602 Problem Psychophysiological insomnia F51.04 Active 356084409 Problem BMI 35.0-35.9,adult Z68.35 Active 400716457 Problem CKD (chronic kidney disease) stage 2, GFR 60-89 ml/min N18.2 Active 551740153 Problem Essential hypertension I10 Active 38183959 Problem Chronic kidney disease (CKD) stage G3b/A1, moderately decreased glomerular filtration rate (GFR) between 30-44 mL/min/1.73 square meter and albuminuria creatinine ratio less than 30 mg/g N18.3 Active 919045875 Problem Fibromyalgia M79.7 Active 557692744 ALLERGIES No Information ENCOUNTERS Encounter Location Date Diagnosis [facility] [address] [facility] [id number] [address] 12 Jan, 2018 [facility] [address] [facility] [id number] [address] 04 Dec, 2017 Type 2 diabetes mellitus without complication, without long- term current use of insulin E11.9 ; Chronic kidney disease (CKD) stage G3b/A1, moderately decreased glomerular filtration rate (GFR) between 30-44 mL/min/1.73 square meter and albuminuria creatinine ratio less than 30 mg/g N18.3 ; BMI 35.0 -35.9,adult Z68.35 ; Anemia, unspecified type D64.9 and Psychophysiological insomnia F51.04 [place] [address] [place] [id number] [place] [address] Nov, Fibromyalgia M79.7 [place] [address] [address] Nov, CKD (chronic kidney disease) stage 2, GFR 60-89 ml/min N18.2 [place] [address] [address] 17 Nov, 2017 Chronic kidney disease (CKD) stage G3b/A1, moderately decreased glomerular filtration rate (GFR) between 30-44 mL/min/1.73 square meter and albuminuria creatinine ratio less than 30 mg/g N18.3 [place] [address] [place] [id number] [place] [address] Nov, Chronic kidney disease (CKD) stage G3b/A1, moderately decreased glomerular filtration rate (GFR) between 30-44 mL/min/1.73 square meter and albuminuria creatinine ratio less than 30 mg/g N18.3 and CKD (chronic kidney disease) stage 2, GFR 60-89 ml/min N18.2 [place] [address] [place] [id number] [place] [address] Nov, CKD (chronic kidney disease) stage 2, GFR 60-89 ml/min N18.2 and Chronic kidney disease (CKD) stage G3b/A1, moderately decreased glomerular filtration rate (GFR) between 30-44 mL/min/1.73 square meter and albuminuria creatinine ratio less than 30 mg/g N18.3 [place] [address] [place] [id number] [place] [address] 03 Nov, 2017 Fibromyalgia M79.7 ; Pain of left foot M79.672 and Pain in right foot M79.671 [place] [address] [place] [address] [place] [address] 17 Oct, 2017 Acute cystitis without hematuria N30.00 and Left foot pain M79.672 [place] [address] [address] Oct, [place] [address] [address] Oct, Chronic kidney disease (CKD) stage G3b/A1, moderately decreased glomerular filtration rate (GFR) between 30-44 mL/min/1.73 square meter and albuminuria creatinine ratio less than 30 mg/g N18.3 and BMI 40.0-44.9 , adult Z68.41 [place] [address] [address] Oct, Chronic kidney disease (CKD) stage G3b/A1, moderately decreased glomerular filtration rate (GFR) between 30-44 mL/min/1.73 square meter and albuminuria creatinine ratio less than 30 mg/g N18.3 [place] [address] [address] Sep, Type 2 diabetes mellitus without complication, without long- term current use of insulin E11.9 [place] [address] [address] 12 Sep, 2017 Left foot pain M79.672 ; Bilateral edema of lower extremity R60.0 ; Chronic diastolic CHF (congestive heart failure) I50.32 and Chronic kidney disease (CKD) stage G3b/A1, moderately decreased glomerular filtration rate (GFR) between 30-44 mL/min/1.73 square meter and albuminuria creatinine ratio less than 30 mg/g N18.3 [place] [address] [address] 05 Sep, 2017 Side effect of medication T88.7XXA ; Peripheral edema R60.9 and Chronic kidney disease (CKD) stage G3b/A1, moderately decreased glomerular filtration rate (GFR) between 30-44 mL/min/1.73 square meter and albuminuria creatinine ratio less than 30 mg/g N18.3 [place] [address] [place] [id number] [place] [address] Sep, [place] [address] [address] August, CKD (chronic kidney disease) stage 2, GFR 60-89 ml/min N18.2 [place] [address] [address] August, Chronic diastolic CHF (congestive heart failure) I50.32 ; CKD (chronic kidney disease) stage 2, GFR 60-89 ml/min N18.2 ; BMI 40.0-44.9, adult Z68.41 and Fibromyalgia M79.7 [place] [address] [address] August, [place] [address] [address] August, [place] [address] [address] Jul, Medicare annual wellness visit, initial Z00.00 [...] ml/min N18.2 and Encounter for immunization Z23 [place] [address] [place] [id number] [place] [address] Jul, Localized swelling of both lower legs R22.43 ; Essential hypertension I10 ; Chronic diastolic CHF (congestive heart failure) I50.32 ; BMI 40.0-44.9, adult Z68.41 and CKD (chronic kidney disease) stage 2, GFR 60-89 ml/min N18.2 [place] [address] [place] [id number] [place] [address] Jul, [facility] [address] [address] Jun, [facility] [address] [place] [id number] [place] [phone] Jun, Elevated serum creatinine R79.89 [facility] [address] [place] [id number] [place] [phone] May, Elevated serum creatinine R79.89 [facility] [address] [place] [id number] [place] [address] Apr, Chronic congestive heart failure, unspecified congestive heart failure type I50.9 ; Essential hypertension I10 ; Type 2 diabetes mellitus without complication, without long-term current use of insulin E11.9 ; Arthritis M19.90 ; Depression, reactive F32.9 ; Screening for lipid disorders Z13.220 ; Screening for breast cancer Z12.31 and BMI 40.0-44.9, adult Z68.41 [facility] [address] [place] [address] [id number] [place] [phone] Feb, Dental examination Z01.20 [facility] [address] [place] [id number] [place] [phone] Nov, Dental examination Z01.20 [facility] [address] [place] [address] Oct, [facility] [address] [address] [id number] [place] [phone] Apr, IMMUNIZATIONS No Known Immunizations SOCIAL HISTORY Never Assessed REASON FOR VISIT Labs PLAN OF CARE VITAL SIGNS MEDICATIONS Unknown Medications RESULTS No Results PROCEDURES No Known procedures INSTRUCTIONS MEDICATIONS ADMINISTERED No Known Medications MEDICAL (GENERAL) HISTORY Type Description Date Medical History Congestive Heart Failure Medical History Pneumonia Medical History Bronchitis Medical History Type II Diabetes Medical History Cancer/ breast cancer masectomy Left Medical History Chemotherapy Medical History Blood transfusion/ 2013 Medical History Arthritis Medical History Back Trouble [...]
--- OUTSIDE RECORDS SUMMARY | 2018-01-01 17:31 | XMS REPORT ---
Author Author OSBALDO CHRISTENSEN Organization [facility] Address [address] [place] [address] Care Team Providers Care Cardiothoracic Physiotherapist Name Role Phone AMPARO OSBALDO Unavailable PROBLEMS Type Condition ICD9-CM Code [id number]-FW Code Onset Dates Condition Status SNOMED Code Problem Type 2 diabetes mellitus without complication, without long-term current use of insulin E11.9 Active 521370970 Problem Arthritis M19.90 Active 8873814 Problem Reactive depression F32.9 Active 32323007 Problem Malignant neoplasm of left female breast, unspecified estrogen receptor status, unspecified site of breast C50.912 Active 630359438 Problem Chronic diastolic CHF (congestive heart failure) I50.32 Active 231704393 Problem Status post left mastectomy Z90.12 Active 928166560 Problem Depression, reactive F32.9 Active 07336589 Problem Psychophysiological insomnia F51.04 Active 881126290 Problem BMI 35.0-35.9,adult Z68.35 Active 676775076 Problem CKD (chronic kidney disease) stage 2, GFR 60-89 ml/min N18.2 Active 427500520 Problem Essential hypertension I10 Active 01704226 Problem Chronic kidney disease (CKD) stage G3b/A1, moderately decreased glomerular filtration rate (GFR) between 30-44 mL/min/1.73 square meter and albuminuria creatinine ratio less than 30 mg/g N18.3 Active 445062660 Problem Fibromyalgia M79.7 Active 148608755 ALLERGIES Substance Reaction Event Type Date Status Penicillin V Potassium anaphylaxis Drug Allergy Oct, Active Lyrica Unknown Drug Allergy Oct, Active Darvocet-N 100 anaphylaxis Drug Allergy Oct, Active ENCOUNTERS Encounter Location Date Diagnosis [facility] [address] [facility] [id number] [address] Jan, [facility] [address] [facility] [id number] [place] [address] Dec, Type 2 diabetes mellitus without complication, without long- term current use of insulin E11.9 ; Chronic kidney disease (CKD) stage G3b/A1, moderately decreased glomerular filtration rate (GFR) between 30-44 mL/min/1.73 square meter and albuminuria creatinine ratio less than 30 mg/g N18.3 ; BMI 35.0 -35.9,adult Z68.35 ; Anemia, unspecified type D64.9 and Psychophysiological insomnia F51.04 [place] [address] [address] Nov, Fibromyalgia M79.7 [place] [address] [address] Nov, CKD (chronic kidney disease) stage 2, GFR 60-89 ml/min N18.2 [place] [address] [address] Nov, Chronic kidney disease (CKD) stage G3b/A1, moderately decreased glomerular filtration rate (GFR) between 30-44 mL/min/1.73 square meter and albuminuria creatinine ratio less than 30 mg/g N18.3 [place] [address] [address] Nov, Chronic kidney disease (CKD) stage G3b/A1, moderately decreased glomerular filtration rate (GFR) between 30-44 mL/min/1.73 square meter and albuminuria creatinine ratio less than 30 mg/g N18.3 and CKD (chronic kidney disease) stage 2, GFR 60-89 ml/min N18.2 [place] [address] [place] [id number] [place] [address] Nov, CKD (chronic kidney disease) stage 2, GFR 60-89 ml/min N18.2 and Chronic kidney disease (CKD) stage G3b/A1, moderately decreased glomerular filtration rate (GFR) between 30-44 mL/min/1.73 square meter and albuminuria creatinine ratio less than 30 mg/g N18.3 [place] [address] [address]- [address] Nov, Fibromyalgia M79.7 ; Pain of left foot M79.672 and Pain in right foot M79.671 [place] [address] [address] 17 Oct, 2017 Acute cystitis without hematuria N30.00 and Left foot pain M79.672 [place] [address] [address] Oct, [place] [address] [address] Oct, Chronic kidney disease (CKD) stage G3b/A1, moderately decreased glomerular filtration rate (GFR) between 30-44 mL/min/1.73 square meter and albuminuria creatinine ratio less than 30 mg/g N18.3 and BMI 40.0-44.9 , adult Z68.[address] [address] Oct, Chronic kidney disease (CKD) stage G3b/A1, moderately decreased glomerular filtration rate (GFR) between 30-44 mL/min/1.73 square meter and albuminuria creatinine ratio less than 30 mg/g N18.[address] [address]- [address] Sep, Type 2 diabetes mellitus without complication, without long- term current use of insulin E11.9 [place] [address] [address] Sep, Left foot pain M79.672 ; Bilateral edema of lower extremity R60.0 ; Chronic diastolic CHF (congestive heart failure) I50.32 and Chronic kidney disease (CKD) stage G3b/A1, moderately decreased glomerular filtration rate (GFR) between 30-44 mL/min/1.73 square meter and albuminuria creatinine ratio less than 30 mg/g N18.3 [place] [address] [place] [id number] [place] [address] 05 Sep, 2017 Side effect of medication T88.7XXA ; Peripheral edema R60.9 and Chronic kidney disease (CKD) stage G3b/A1, moderately decreased glomerular filtration rate (GFR) between 30-44 mL/min/1.73 square meter and albuminuria creatinine ratio less than 30 mg/g N18.3 [place] [address] [place] [id number] [place] [address]- [address] Sep, [place] [address] [place] [id number] [place] [address]84- [address] August, CKD (chronic kidney disease) stage 2, GFR 60-89 ml/min N18.2 [place] [address] [address]- [address] August, Chronic diastolic CHF (congestive heart failure) I50.32 ; CKD (chronic kidney disease) stage 2, GFR 60-89 ml/min N18.2 ; BMI 40.0-44.9, adult Z68.41 and Fibromyalgia M79.[address] [address]- [address] August, [place] [address] [place] [id number] [place] [address]- [address] August, [place] [id number] [place] [address]- [address] Jul, Medicare annual wellness visit, initial Z00.00 [...] ml/min N18.2 and Encounter for immunization Z23 [place] [id number] [place] [address]- [address] Jul, Localized swelling of both lower legs R22.43 ; Essential hypertension I10 ; Chronic diastolic CHF (congestive heart failure) I50.32 ; BMI 40.0-44.9, adult Z68.41 and CKD (chronic kidney disease) stage 2, GFR 60-89 ml/min N18.2 [facility] [address] [place] [id number] 2546 Jul, [facility] [address] [place] [id number] [place] [phone] Jun, [place] [address] [place] [id number] [place] [address] 75[address]- [address] Jun, Elevated serum creatinine R79.89 [place] [address] [place] [id number] [place] [address] 25[address] May, Elevated serum creatinine R79.89 [place] [address] [place] [id number] [place] [address]- [address] Apr, Chronic congestive heart failure, unspecified congestive heart failure type I50.9 ; Essential hypertension I10 ; Type 2 diabetes mellitus without complication, without long-term current use of insulin E11.9 ; Arthritis M19.90 ; Depression, reactive F32.9 ; Screening for lipid disorders Z13.220 ; Screening for breast cancer Z12.31 and BMI 40.0-44.9, adult Z68.41 [facility] [address] [place] [id number] [place] [address] [phone] Feb, Dental examination Z01.20 [facility] [address] [place] [id number] [place] [address] [phone] Nov, Dental examination Z01.20 [place] [address] [place] [address] 17039- [address] Oct, [facility] [address] [place] [address] [id number] [place] [address] [phone] Apr, IMMUNIZATIONS Vaccine Route Administration Date Status TORADOL (IM) 60 MG/2ML (UP TO 15 MG) IM Intramuscular October 25, 2017 Administered SOCIAL HISTORY Never Assessed REASON FOR VISIT UTI symptoms, states she is following up and is now starting to have dysuria, results have not yet been reviewed-AHarrymanRUbaldo PLAN OF CARE Activity Details Follow Up 1-2 weeks if not better Reason:UTI/foot pain VITAL SIGNS Height 65.75 in 2017-10-25 Temperature 99.3 degrees Fahrenheit 2017-10-25 Heart Rate 84 bpm 2017-10-25 Respiratory Rate 20 2017-10-25 Blood pressure systolic 106 mmHg 2017-10-25 Blood pressure diastolic 56 mmHg 2017-10-25 MEDICATIONS Medication Instructions Dosage Frequency Start Date End Date Duration Status Metformin HCl 500 mg Orally Twice a day 2 tablets 12h Active Super B-Complex - Orally Once a day 1 capsule 24h Active Furosemide 40 mg Orally Once a day 1 tablet 24h Active Co Q-10 200 MG Orally Once a day 1 capsule with a meal 24h Active Claritin 10 MG Orally Once a day 1 tablet 24h Active Carvedilol 25 MG Orally 2 times a day 2 tablets 12h Active Vitamin D-3 1000 UNIT Orally Once a day 1 capsule 24h Active Flunisolide 25 MCG/ACT (0.025%) Nasally Twice a day 2 sprays in each nostril 12h Active Pyridium 200 mg Orally Three times a day 1 tablet after meals 8h Oct, Oct, 2 day(s) Active Lisinopril 5 mg Orally Once a day 1 tablet 24h Active Glimepiride 4 MG Orally twice a day 1 tablet 12h Active Simvastatin 40 mg Orally Once a day 1 tablet 24h Active Aspir-81 81 MG Orally Once a day 1 tablet 24h Active PredniSONE 20 mg Orally Once a day 1 tablet 24h Oct, Oct, 05 days Active Multivitamins - Orally Once a day 1 capsule 24h Active Ranitidine HCl 150 MG Orally twice a day 1 tablet 12h Active Tylenol 8 Hour Arthritis Pain 650 MG Orally 2 times a day 2 tablets as needed 12h Active Glucosamine Chondr 1500 Complx - Orally 2 times a day 1 capsule 12h Active Macrobid 100 mg Orally every 12 hrs 1 capsule with food 12h Oct, Oct, 7 day(s) Active RESULTS No Results PROCEDURES Procedure Date Ordered Result Body Site TORADOL (IM) 60 MG/2ML (UP TO 15 MG) October 25, 2017 THER/PROPH/DIAG INJ, SC/IM October 25, 2017 [facility] VISIT ESTABLISHED PATIENT October 25, 2017 INSTRUCTIONS MEDICATIONS ADMINISTERED No Known Medications [...]
--- OUTSIDE RECORDS SUMMARY | 2018-01-01 17:32 | XMS REPORT ---
Author Author KRISTAL NICHOLSON [facility] Address [address] [place] [address] Care Team Providers Care Corporate Operations Compliance Manager Name Role Phone KRISTAL NICHOLSON Unavailable PROBLEMS Type Condition ICD9-CM Code [id number] Code Onset Dates Condition Status SNOMED Code Problem Type 2 diabetes mellitus without complication, without long-term current use of insulin E11.9 Active 809748029 Problem BMI 40.0-44.9, adult Z68.41 Active 691434417 Problem Reactive depression F32.9 Active 85164105 Problem Chronic diastolic CHF (congestive heart failure) I50.32 Active 741766378 Problem Status post left mastectomy Z90.12 Active 039968820 Problem Malignant neoplasm of left female breast, unspecified estrogen receptor status, unspecified site of breast C50.912 Active 519531260 Problem Chronic kidney disease (CKD) stage G3b/A1, moderately decreased glomerular filtration rate (GFR) between 30-44 mL/min/1.73 square meter and albuminuria creatinine ratio less than 30 mg/g N18.3 Active 569062609 Problem Fibromyalgia M79.7 Active 744684690 Problem Essential hypertension I10 Active 27522284 Problem Arthritis M19.90 Active 0962271 Problem CKD (chronic kidney disease) stage 2, GFR 60-89 ml/min N18.2 Active 069698517 Problem Depression, reactive F32.9 Active 53985896 ALLERGIES No Information ENCOUNTERS Encounter Location Date Diagnosis [facility] [place] [address] [facility] [id number] [address] Jan, [facility] [place] [address] [address] Dec, [facility] [place] [address] [id number], [place] [address] Nov, [facility] [place] [id number] [place] [address] Nov, CKD (chronic kidney disease) stage 2, GFR 60-89 ml/min N18.2 [place] [id number] [place] [address]49- 1777 17 Nov, 2017 Chronic kidney disease (CKD) stage G3b/A1, moderately decreased glomerular filtration rate (GFR) between 30-44 mL/min/1.73 square meter and albuminuria creatinine ratio less than 30 mg/g N18.3 [place] [address] [address] [id number] [place] [address] 16741- 5859 Nov, Chronic kidney disease (CKD) stage G3b/A1, moderately decreased glomerular filtration rate (GFR) between 30-44 mL/min/1.73 square meter and albuminuria creatinine ratio less than 30 mg/g N18.3 and CKD (chronic kidney disease) stage 2, GFR 60-89 ml/min N18.2 [place] [address] [address] [id number] [place] [address] 94191- 4428 Nov, CKD (chronic kidney disease) stage 2, GFR 60-89 ml/min N18.2 and Chronic kidney disease (CKD) stage G3b/A1, moderately decreased glomerular filtration rate (GFR) between 30-44 mL/min/1.73 square meter and albuminuria creatinine ratio less than 30 mg/g N18.3 [place] [id number] [place] [address] 19108- 3234 Nov, Fibromyalgia M79.7 ; Pain of left foot M79.672 and Pain in right foot M79.671 [place] [address] [address] [id number] [place] [address] 89780- 9572 Oct, Acute cystitis without hematuria N30.00 and Left foot pain M79.672 [place] [address] [id number] [place] [address] 30175- 2400 Oct, [place] [address] [id number] [place] [address] 79098- 3794 Oct, Chronic kidney disease (CKD) stage G3b/A1, moderately decreased glomerular filtration rate (GFR) between 30-44 mL/min/1.73 square meter and albuminuria creatinine ratio less than 30 mg/g N18.3 and BMI 40.0-44.9 , adult Z68.41 [place] [address] [id number] [place] [address] 59537- 8247 Oct, Chronic kidney disease (CKD) stage G3b/A1, moderately decreased glomerular filtration rate (GFR) between 30-44 mL/min/1.73 square meter and albuminuria creatinine ratio less than 30 mg/g N18.3 [place] [address] [address] [id number] [place] [address] 19125- 9708 20 Sep, 2017 Type 2 diabetes mellitus without complication, without long- term current use of insulin E11.9 [place] [address] [id number] [place] [address] 32414- 3087 Sep, Left foot pain M79.672 ; Bilateral edema of lower extremity R60.0 ; Chronic diastolic CHF (congestive heart failure) I50.32 and Chronic kidney disease (CKD) stage G3b/A1, moderately decreased glomerular filtration rate (GFR) between 30-44 mL/min/1.73 square meter and albuminuria creatinine ratio less than 30 mg/g N18.3 [place] [id number] [place] [address] 07919- 6714 05 Sep, 2017 Side effect of medication T88.7XXA ; Peripheral edema R60.9 and Chronic kidney disease (CKD) stage G3b/A1, moderately decreased glomerular filtration rate (GFR) between 30-44 mL/min/1.73 square meter and albuminuria creatinine ratio less than 30 mg/g N18.3 [place] [address] [place] [address] 77638- 8476 Sep, [place] [address] [id number] [place] [address] 43317- 8434 August, CKD (chronic kidney disease) stage 2, GFR 60-89 ml/min N18.2 [place] [address] [address] [id number] [place] [address] 39531- 2828 August, Chronic diastolic CHF (congestive heart failure) I50.32 ; CKD (chronic kidney disease) stage 2, GFR 60-89 ml/min N18.2 ; BMI 40.0-44.9, adult Z68.41 and Fibromyalgia M79.7 [place] [id number] [place] [address] 67499- 1674 August, [place] [id number] [place] [address] 90642- 8450 August, [place] [id number] [place] [address] 30149- 4526 Jul, Medicare annual wellness visit, initial Z00.00 [...] ml/min N18.2 and Encounter for immunization Z23 [place] [address] [id number] [place] [address] 05169- 7259 Jul, Localized swelling of both lower legs R22.43 ; Essential hypertension I10 ; Chronic diastolic CHF (congestive heart failure) I50.32 ; BMI 40.0-44.9, adult Z68.41 and CKD (chronic kidney disease) stage 2, GFR 60-89 ml/min N18.2 [place] [id number] [place] [address] 18433- 5864 Jul, [place] [id number] [place] [address] 26476- 8450 Jun, [place] [address] [address] [id number] [place] [address] 12849- 3088 Jun, Elevated serum creatinine R79.89 [place] [address] [address] [id number] [place] [address] 82987- 7461 May, Elevated serum creatinine R79.89 [place] [id number] [address] Apr, Chronic congestive heart failure, unspecified congestive heart failure type I50.9 ; Essential hypertension I10 ; Type 2 diabetes mellitus without complication, without long-term current use of insulin E11.9 ; Arthritis M19.90 ; Depression, reactive F32.9 ; Screening for lipid disorders Z13.220 ; Screening for breast cancer Z12.31 and BMI 40.0-44.9, adult Z68.41 [facility] [address] [id number] Feb, Dental examination Z01.20 [facility] [address] [place] [id number] [place] [id number] Nov, Dental examination Z01.20 [facility] [place] [address] [address] Oct, [facility] [id number] [place] [id number] Apr, IMMUNIZATIONS No Known Immunizations SOCIAL HISTORY Never Assessed REASON FOR VISIT Requests return call PLAN OF CARE VITAL SIGNS MEDICATIONS Unknown [...]
--- OUTSIDE RECORDS SUMMARY | 2018-01-01 17:32 | XMS REPORT ---
Author Author LUISA SAUL Organization [facility] Address [address] [place] [address] Care Team Providers Care Logistics Assistant Name Role Phone LUISA SAUL Unavailable PROBLEMS Type Condition ICD9-CM Code OHB17-KN Code Onset Dates Condition Status SNOMED Code Problem Type 2 diabetes mellitus without complication, without long-term current use of insulin E11.9 Active 626108102 Problem BMI 40.0-44.9, adult Z68.41 Active 433768649 Problem Reactive depression F32.9 Active 31443658 Problem Chronic diastolic CHF (congestive heart failure) I50.32 Active 036759439 Problem Status post left mastectomy Z90.12 Active 293781941 Problem Malignant neoplasm of left female breast, unspecified estrogen receptor status, unspecified site of breast C50.912 Active 038051186 Problem Chronic kidney disease (CKD) stage G3b/A1, moderately decreased glomerular filtration rate (GFR) between 30-44 mL/min/1.73 square meter and albuminuria creatinine ratio less than 30 mg/g N18.3 Active 418629011 Problem Fibromyalgia M79.7 Active 002773667 Problem Essential hypertension I10 Active 94371183 Problem Arthritis M19.90 Active 8109463 Problem CKD (chronic kidney disease) stage 2, GFR 60-89 ml/min N18.2 Active 127520156 Problem Depression, reactive F32.9 Active 33569787 ALLERGIES Substance Reaction Event Type Date Status Penicillin V Potassium anaphylaxis Drug Allergy Sep, Active Lyrica Unknown Drug Allergy Sep, Active Darvocet-N 100 anaphylaxis Drug Allergy Sep, Active ENCOUNTERS Encounter Location Date Diagnosis [facility] [address] [facility] [id number] [address] Jan, [facility] [address] [facility] [id number] [address] Nov, Chronic kidney disease (CKD) stage G3b/A1, moderately decreased glomerular filtration rate (GFR) between 30-44 mL/min/1.73 square meter and albuminuria creatinine ratio less than 30 mg/g N18.3 [place] [address] [place] [address] 24549- 0366 Nov, Chronic kidney disease (CKD) stage G3b/A1, moderately decreased glomerular filtration rate (GFR) between 30-44 mL/min/1.73 square meter and albuminuria creatinine ratio less than 30 mg/g N18.3 and CKD (chronic kidney disease) stage 2, GFR 60-89 ml/min N18.2 [place] [address] [address] [id number] [place] [address] 01628- 5742 Nov, CKD (chronic kidney disease) stage 2, GFR 60-89 ml/min N18.2 and Chronic kidney disease (CKD) stage G3b/A1, moderately decreased glomerular filtration rate (GFR) between 30-44 mL/min/1.73 square meter and albuminuria creatinine ratio less than 30 mg/g N18.3 [place] [address] [address] [id number] [place] [address] 92102- 8859 Nov, Fibromyalgia M79.7 ; Pain of left foot M79.672 and Pain in right foot M79.671 [place] [address] [address] [id number] [place] [address] 69529- 0914 Oct, Acute cystitis without hematuria N30.00 and Left foot pain M79.672 [place] [address] [address] [id number] [place] [address] 00095- 2948 Oct, [place] [address] [address] [id number] [place] [address] 57732- 0860 Oct, Chronic kidney disease (CKD) stage G3b/A1, moderately decreased glomerular filtration rate (GFR) between 30-44 mL/min/1.73 square meter and albuminuria creatinine ratio less than 30 mg/g N18.3 and BMI 40.0-44.9 , adult Z68.41 [place] [id number] [place] [address] 93248- 6118 Oct, Chronic kidney disease (CKD) stage G3b/A1, moderately decreased glomerular filtration rate (GFR) between 30-44 mL/min/1.73 square meter and albuminuria creatinine ratio less than 30 mg/g N18.3 [place] [id number] [place] [address] 29547- 1555 20 Sep, 2017 Type 2 diabetes mellitus without complication, without long- term current use of insulin E11.9 [place] [address] [id number] [place] [address] 05441- 8309 Sep, Left foot pain M79.672 ; Bilateral edema of lower extremity R60.0 ; Chronic diastolic CHF (congestive heart failure) I50.32 and Chronic kidney disease (CKD) stage G3b/A1, moderately decreased glomerular filtration rate (GFR) between 30-44 mL/min/1.73 square meter and albuminuria creatinine ratio less than 30 mg/g N18.3 [place] [address] [address]- [address] 05 Sep, 2017 Side effect of medication T88.7XXA ; Peripheral edema R60.9 and Chronic kidney disease (CKD) stage G3b/A1, moderately decreased glomerular filtration rate (GFR) between 30-44 mL/min/1.73 square meter and albuminuria creatinine ratio less than 30 mg/g N18.3 [place] [address] [address] [id number] [place] [address] 85395- 5851 Sep, [place] [address] [address] [id number] [place] [address] 89968- 1244 August, CKD (chronic kidney disease) stage 2, GFR 60-89 ml/min N18.2 [place] [address] [id number] [place] [address] 85235- 5397 August, Chronic diastolic CHF (congestive heart failure) I50.32 ; CKD (chronic kidney disease) stage 2, GFR 60-89 ml/min N18.2 ; BMI 40.0-44.9, adult Z68.41 and Fibromyalgia M79.7 [place] [address] [address]- 6468 August, [place] [address] [place] [address] 97163- 8727 August, [place] [address] [address] [id number] [place] [address] 32526- 6699 Jul, Medicare annual wellness visit, initial Z00.00 [...] ml/min N18.2 and Encounter for immunization Z23 [place] [address] [id number] [place] [address] 16022- 2684 Jul, Localized swelling of both lower legs R22.43 ; Essential hypertension I10 ; Chronic diastolic CHF (congestive heart failure) I50.32 ; BMI 40.0-44.9, adult Z68.41 and CKD (chronic kidney disease) stage 2, GFR 60-89 ml/min N18.2 [place] [address] [address] [id number] [place] [address] 09630- 0110 Jul, [place] [address] [id number] [place] [address] 29749- 7059 Jun, [place] [address] [address] [id number] [place] [address] 02157- 6956 Jun, Elevated serum creatinine R79.89 [place] [address] [place] [address] 30944- 1724 May, Elevated serum creatinine R79.89 [place] [address] [address] [id number] [place] [address] 36456- 3049 Apr, Chronic congestive heart failure, unspecified congestive heart failure type I50.9 ; Essential hypertension I10 ; Type 2 diabetes mellitus without complication, without long-term current use of insulin E11.9 ; Arthritis M19.90 ; Depression, reactive F32.9 ; Screening for lipid disorders Z13.220 ; Screening for breast cancer Z12.31 and BMI 40.0-44.9, adult Z68.41 [facility] [address] [facility] [id number] [id number] Feb, Dental examination Z01.20 [facility] [address] [facility] [id number] [place] [id number] Nov, Dental examination Z01.20 [facility] [address] [facility] [id number] [address] Oct, [facility] [address] [facility] [id number] [place] [id number] Apr, IMMUNIZATIONS No Known Immunizations SOCIAL HISTORY Never Assessed REASON FOR VISIT Foot pain bilateral-states she has swelling, redness, tenderness, and warm to the touch, began taking lyrica rx on 09/06/17, started experiencing side effects , called pharmacy at [facility] on 09/11, patient states that she was instructed to stop taking medication immediately-[facility] PLAN OF CARE Activity Details Follow Up prn Reason: VITAL SIGNS Height 65.75 in 2017-09-13 Weight 253.6 lbs 2017-09-13 Temperature 98.9 degrees Fahrenheit 2017-09-13 Heart Rate 100 bpm 2017-09-13 Respiratory Rate 20 2017-09-13 BMI 41.24 kg/m2 2017-09-13 Blood pressure systolic 128 mmHg 2017-09-13 Blood pressure diastolic 78 mmHg 2017-09-13 MEDICATIONS Medication Instructions Dosage Frequency Start Date End Date Duration Status Flunisolide 25 MCG/ACT (0.025%) Nasally Twice a day 2 sprays in each nostril 12h Active Lisinopril 5 mg Orally Once a day 1 tablet 24h Active Aspir-81 81 MG Orally Once a day 1 tablet 24h Active Vitamin D-3 1000 UNIT Orally Once a day 1 capsule 24h Active Claritin 10 MG Orally Once a day 1 tablet 24h Active Multivitamins - Orally Once a day 1 capsule 24h Active Simvastatin 40 mg Orally Once a day 1 tablet 24h Active Super B-Complex - Orally Once a day 1 capsule 24h Active Metformin HCl 500 mg Orally Twice a day 2 tablets 12h Active Carvedilol 25 MG Orally 2 times a day 2 tablets 12h Active Glucosamine Chondr 1500 Complx - Orally 2 times a day 1 capsule 12h Active Furosemide 40 mg Orally Once a day 1 tablet 24h Active Co Q-10 200 MG Orally Once a day 1 capsule with a meal 24h Active Metolazone 5 mg Orally Once a day 1 tablet 24h Sep, 30 day(s) Active Ranitidine HCl 150 MG Orally twice a day 1 tablet 12h Active Tylenol 8 Hour Arthritis Pain 650 MG Orally 2 times a day 2 tablets as needed 12h Active Glimepiride 4 MG Orally twice a day 1 tablet 12h Active RESULTS No Results PROCEDURES Procedure Date Ordered Result Body Site [facility] VISIT ESTABLISHED PATIENT September 13, 2017 INSTRUCTIONS MEDICATIONS ADMINISTERED No Known Medications [...]
--- OUTSIDE RECORDS SUMMARY | 2018-01-01 17:32 | XMS REPORT ---
Author Author KRISTAL NICHOLSON Organization [facility] Address [address] [place] [address] Care Team Providers Care Customer Consultant Name Role Phone KRISTAL NICHOLSON Unavailable PROBLEMS Type Condition ICD9-CM Code OFQ49-VR Code Onset Dates Condition Status SNOMED Code Problem Type 2 diabetes mellitus without complication, without long-term current use of insulin E11.9 Active 020855549 Problem BMI 40.0-44.9, adult Z68.41 Active 331390301 Problem Reactive depression F32.9 Active 96649830 Problem Chronic diastolic CHF (congestive heart failure) I50.32 Active 076391229 Problem Status post left mastectomy Z90.12 Active 126345796 Problem Malignant neoplasm of left female breast, unspecified estrogen receptor status, unspecified site of breast C50.912 Active 834687689 Problem Chronic kidney disease (CKD) stage G3b/A1, moderately decreased glomerular filtration rate (GFR) between 30-44 mL/min/1.73 square meter and albuminuria creatinine ratio less than 30 mg/g N18.3 Active 234240064 Problem Fibromyalgia M79.7 Active 308369637 Problem Essential hypertension I10 Active 33590177 Problem Arthritis M19.90 Active 1187957 Problem CKD (chronic kidney disease) stage 2, GFR 60-89 ml/min N18.2 Active 469066372 Problem Depression, reactive F32.9 Active 29367311 ALLERGIES No Information ENCOUNTERS Encounter Location Date Diagnosis [facility] [address] [facility] [id number] [address] Jan, [facility] [address] [facility] [id number], [place] [address] 17 Nov, 2017 Chronic kidney disease (CKD) stage G3b/A1, moderately decreased glomerular filtration rate (GFR) between 30-44 mL/min/1.73 square meter and albuminuria creatinine ratio less than 30 mg/g N18.3 [place] [id number] [place] [address] 14 Nov, 2017 Chronic kidney disease (CKD) stage G3b/A1, moderately decreased glomerular filtration rate (GFR) between 30-44 mL/min/1.73 square meter and albuminuria creatinine ratio less than 30 mg/g N18.3 and CKD (chronic kidney disease) stage 2, GFR 60-89 ml/min N18.2 [place] [address] [place] [id number] [place] [address] 49009- [address] 09 Nov, 2017 CKD (chronic kidney disease) stage 2, GFR 60-89 ml/min N18.2 and Chronic kidney disease (CKD) stage G3b/A1, moderately decreased glomerular filtration rate (GFR) between 30-44 mL/min/1.73 square meter and albuminuria creatinine ratio less than 30 mg/g N18.3 [place] [address] [place] [id number] [place] [address] Nov, Fibromyalgia M79.7 ; Pain of left foot M79.672 and Pain in right foot M79.671 [place] [address] [place] [id number] [place] [address] 91534- 7391 Oct, Acute cystitis without hematuria N30.00 and Left foot pain M79.672 [place] [address] [place] [id number] [place] [address] 10946- 4098 Oct, [place] [address] [place] [id number] [place] [address] 44374- 0554 Oct, Chronic kidney disease (CKD) stage G3b/A1, moderately decreased glomerular filtration rate (GFR) between 30-44 mL/min/1.73 square meter and albuminuria creatinine ratio less than 30 mg/g N18.3 and BMI 40.0-44.9 , adult Z68.41 [place] [address] [place] [id number] [place] [address] 09304- 0871 Oct, Chronic kidney disease (CKD) stage G3b/A1, moderately decreased glomerular filtration rate (GFR) between 30-44 mL/min/1.73 square meter and albuminuria creatinine ratio less than 30 mg/g N18.3 [place] [address] [place] [id number] [place] [address] 75364- 7469 20 Sep, 2017 Type 2 diabetes mellitus without complication, without long- term current use of insulin E11.9 [place] [address] [place] [id number] [place] [address] 32865- 1564 12 Sep, 2017 Left foot pain M79.672 ; Bilateral edema of lower extremity R60.0 ; Chronic diastolic CHF (congestive heart failure) I50.32 and Chronic kidney disease (CKD) stage G3b/A1, moderately decreased glomerular filtration rate (GFR) between 30-44 mL/min/1.73 square meter and albuminuria creatinine ratio less than 30 mg/g N18.3 [place] [address] [place] [id number] [place] [address] 13454- 0930 05 Sep, 2017 Side effect of medication T88.7XXA ; Peripheral edema R60.9 and Chronic kidney disease (CKD) stage G3b/A1, moderately decreased glomerular filtration rate (GFR) between 30-44 mL/min/1.73 square meter and albuminuria creatinine ratio less than 30 mg/g N18.3 [place] [address] [address]- [address] Sep, [place] [address] [place] [id number] [place] [address] 26238- 8046 August, CKD (chronic kidney disease) stage 2, GFR 60-89 ml/min N18.2 [place] [address] [place] [id number] [place] [address] 53521- 6878 August, Chronic diastolic CHF (congestive heart failure) I50.32 ; CKD (chronic kidney disease) stage 2, GFR 60-89 ml/min N18.2 ; BMI 40.0-44.9, adult Z68.41 and Fibromyalgia M79.7 [place] [address] [place] [id number] [place] [address] 94541- 8887 August, [place] [address] [address]- [address] August, [place] [address] [address] Jul, Medicare annual wellness visit, initial Z00.00 [...] ml/min N18.2 and Encounter for immunization Z23 [place] [address] [place] [id number] [place] [address] 55107- 8636 19 Jul, 2017 Localized swelling of both lower legs R22.43 ; Essential hypertension I10 ; Chronic diastolic CHF (congestive heart failure) I50.32 ; BMI 40.0-44.9, adult Z68.41 and CKD (chronic kidney disease) stage 2, GFR 60-89 ml/min N18.2 [place] [address] [place] [id number] [place] [address] 41111- 6808 17 Jul, 2017 [place] [address] [place] [id number] [place] [address] 35774- 3880 Jun, [place] [address] [place] [id number] [place] [address] 16834- 8028 Jun, Elevated serum creatinine R79.89 [place] [address] [place] [id number] [place] [address] 36425- 2722 May, Elevated serum creatinine R79.89 [place] [address] [place] [id number] [place] [address] 41926- 9612 Apr, Chronic congestive heart failure, unspecified congestive heart failure type I50.9 ; Essential hypertension I10 ; Type 2 diabetes mellitus without complication, without long-term current use of insulin E11.9 ; Arthritis M19.90 ; Depression, reactive F32.9 ; Screening for lipid disorders Z13.220 ; Screening for breast cancer Z12.31 and BMI 40.0-44.9, adult Z68.41 [place] [address] [facility] [id number] [place] [id number] Feb, Dental examination Z01.20 [facility] [address] [facility] [id number] [id number] Nov, Dental examination Z01.20 [facility] [address] [facility] [id number] [place] [address] Oct, [facility] [address] [facility] [id number] [id number] Apr, IMMUNIZATIONS No Known Immunizations SOCIAL HISTORY Never Assessed REASON FOR VISIT Phone call PLAN OF CARE VITAL SIGNS MEDICATIONS [...]
--- OUTSIDE RECORDS SUMMARY | 2018-01-01 17:32 | XMS REPORT ---
Author Author OSBALDO CHRISTENSEN Organization [facility] Address [address] [place] [address] Care Team Providers Care Journeyman Wireman Name Role Phone FLETCHER CHRISTENSENTA Unavailable PROBLEMS Type Condition ICD9-CM Code CFA61-HU Code Onset Dates Condition Status SNOMED Code Problem Type 2 diabetes mellitus without complication, without long-term current use of insulin E11.9 Active 274371412 Problem Arthritis M19.90 Active 8847872 Problem Reactive depression F32.9 Active 80393615 Problem Malignant neoplasm of left female breast, unspecified estrogen receptor status, unspecified site of breast C50.912 Active 257150043 Problem Chronic diastolic CHF (congestive heart failure) I50.32 Active 819346974 Problem Status post left mastectomy Z90.12 Active 039812289 Problem Depression, reactive F32.9 Active 47216137 Problem Psychophysiological insomnia F51.04 Active 937408103 Problem BMI 35.0-35.9,adult Z68.35 Active 415037855 Problem CKD (chronic kidney disease) stage 2, GFR 60-89 ml/min N18.2 Active 143958621 Problem Essential hypertension I10 Active 22239977 Problem Chronic kidney disease (CKD) stage G3b/A1, moderately decreased glomerular filtration rate (GFR) between 30-44 mL/min/1.73 square meter and albuminuria creatinine ratio less than 30 mg/g N18.3 Active 740484759 Problem Fibromyalgia M79.7 Active 593566243 ALLERGIES No Information ENCOUNTERS Encounter Location Date Diagnosis [facility] [address] [facility] [id number], [place] [address] Jan, [facility] [address] [facility] [id number], [place] [address] 04 Dec, 2017 Type 2 diabetes mellitus without complication, without long- term current use of insulin E11.9 ; Chronic kidney disease (CKD) stage G3b/A1, moderately decreased glomerular filtration rate (GFR) between 30-44 mL/min/1.73 square meter and albuminuria creatinine ratio less than 30 mg/g N18.3 ; BMI 35.0 -35.9,adult Z68.35 ; Anemia, unspecified type D64.9 and Psychophysiological insomnia F51.04 [place] [address] [place] [id number] [place] [address] 03375- [address]20 Nov, Fibromyalgia M79.7 [place] [address] 90[address]- 1367 Nov, CKD (chronic kidney disease) stage 2, GFR 60-89 ml/min N18.2 [place] [address] 31064- 1353 17 Nov, 2017 Chronic kidney disease (CKD) stage G3b/A1, moderately decreased glomerular filtration rate (GFR) between 30-44 mL/min/1.73 square meter and albuminuria creatinine ratio less than 30 mg/g N18.3 [place] [address] [place] [id number] [place] [address] 00606- 6199 Nov, Chronic kidney disease (CKD) stage G3b/A1, moderately decreased glomerular filtration rate (GFR) between 30-44 mL/min/1.73 square meter and albuminuria creatinine ratio less than 30 mg/g N18.3 and CKD (chronic kidney disease) stage 2, GFR 60-89 ml/min N18.2 [place] [address] [place] [id number] [place] [address] 92522- 2661 Nov, CKD (chronic kidney disease) stage 2, GFR 60-89 ml/min N18.2 and Chronic kidney disease (CKD) stage G3b/A1, moderately decreased glomerular filtration rate (GFR) between 30-44 mL/min/1.73 square meter and albuminuria creatinine ratio less than 30 mg/g N18.3 [place] [address] [place] [id number] [place] [address] 90440- 8894 03 Nov, 2017 Fibromyalgia M79.7 ; Pain of left foot M79.672 and Pain in right foot M79.671 [place] [address] [place] [address] 17 Oct, 2017 Acute cystitis without hematuria N30.00 and Left foot pain M79.672 [place] [address] 96007- 9131 Oct, [place] [address] 34[address]- 3381 Oct, Chronic kidney disease (CKD) stage G3b/A1, moderately decreased glomerular filtration rate (GFR) between 30-44 mL/min/1.73 square meter and albuminuria creatinine ratio less than 30 mg/g N18.3 and BMI 40.0-44.9 , adult Z68.41 [place] [address] 98141- 8810 Oct, Chronic kidney disease (CKD) stage G3b/A1, moderately decreased glomerular filtration rate (GFR) between 30-44 mL/min/1.73 square meter and albuminuria creatinine ratio less than 30 mg/g N18.3 [place] [address] [place] [id number] [place] [address] 63694- 5600 Sep, Type 2 diabetes mellitus without complication, without long- term current use of insulin E11.9 [place] [address] [place] [id number] [place] [address] 73887- 3926 12 Sep, 2017 Left foot pain M79.672 ; Bilateral edema of lower extremity R60.0 ; Chronic diastolic CHF (congestive heart failure) I50.32 and Chronic kidney disease (CKD) stage G3b/A1, moderately decreased glomerular filtration rate (GFR) between 30-44 mL/min/1.73 square meter and albuminuria creatinine ratio less than 30 mg/g N18.3 [place] [address] 27771- 4196 05 Sep, 2017 Side effect of medication T88.7XXA ; Peripheral edema R60.9 and Chronic kidney disease (CKD) stage G3b/A1, moderately decreased glomerular filtration rate (GFR) between 30-44 mL/min/1.73 square meter and albuminuria creatinine ratio less than 30 mg/g N18.3 [place] [address] [place] [address] 38873- 0781 Sep, [place] [address] 53752- [address] August, CKD (chronic kidney disease) stage 2, GFR 60-89 ml/min N18.2 [place] [address] 59[address]- 4544 August, Chronic diastolic CHF (congestive heart failure) I50.32 ; CKD (chronic kidney disease) stage 2, GFR 60-89 ml/min N18.2 ; BMI 40.0-44.9, adult Z68.41 and Fibromyalgia M79.7 [place] [address] [place] [id number] [place] [address] 76621- 4387 August, [place] [address] 98[address]- [address]39 August, [place] [address] [place] [id number] [place] [address] 33467- 2358 Jul, Medicare annual wellness visit, initial Z00.00 [...] ml/min N18.2 and Encounter for immunization Z23 [place] [address] [place] [id number] [place] [address] 28460- 0781 Jul, Localized swelling of both lower legs R22.43 ; Essential hypertension I10 ; Chronic diastolic CHF (congestive heart failure) I50.32 ; BMI 40.0-44.9, adult Z68.41 and CKD (chronic kidney disease) stage 2, GFR 60-89 ml/min N18.2 [place] [address] [place] [id number] [place] [address] 64629- 8293 Jul, [facility] [address], [place] [address] Jun, [facility] [address] [place] [id number] [place] [address] [phone]- 6576 Jun, Elevated serum creatinine R79.89 [facility] [address] [place] [id number] [place] [address] [phone]- 5149 May, Elevated serum creatinine R79.89 [facility] [address] [place] [id number] [place] [address] 951753- 0048 Apr, Chronic congestive heart failure, unspecified congestive heart failure type I50.9 ; Essential hypertension I10 ; Type 2 diabetes mellitus without complication, without long-term current use of insulin E11.9 ; Arthritis M19.90 ; Depression, reactive F32.9 ; Screening for lipid disorders Z13.220 ; Screening for breast cancer Z12.31 and BMI 40.0-44.9, adult Z68.41 [facility] [address] [place] [id number] [place] [address] [id number] Feb, Dental examination Z01.20 [facility] [address] [place] [id number] [place] [address] [phone] Nov, Dental examination Z01.20 [facility] [id number] [place] [address] 54039- 2546 Oct, [facility] [address] [place] [id number] [place] [address] [phone] Apr, IMMUNIZATIONS No Known Immunizations SOCIAL HISTORY Never Assessed REASON FOR VISIT PLAN OF CARE VITAL SIGNS MEDICATIONS Unknown [...]
--- OUTSIDE RECORDS SUMMARY | 2018-01-01 17:32 | XMS REPORT ---
Author Author OSBALDO CHRISTENSEN Organization [facility] Address [address] [place] [address] Care Team Providers Care Therapist Radiation Name Role Phone AMPARO OSBALDO Unavailable PROBLEMS Type Condition ICD9-CM Code FTL43-GJ Code Onset Dates Condition Status SNOMED Code Problem Type 2 diabetes mellitus without complication, without long-term current use of insulin E11.9 Active 135075896 Problem Arthritis M19.90 Active 4837189 Problem Reactive depression F32.9 Active 42659858 Problem Malignant neoplasm of left female breast, unspecified estrogen receptor status, unspecified site of breast C50.912 Active 876248420 Problem Chronic diastolic CHF (congestive heart failure) I50.32 Active 405665308 Problem Status post left mastectomy Z90.12 Active 179906273 Problem Depression, reactive F32.9 Active 43145816 Problem Psychophysiological insomnia F51.04 Active 501718750 Problem BMI 35.0-35.9,adult Z68.35 Active 712199976 Problem CKD (chronic kidney disease) stage 2, GFR 60-89 ml/min N18.2 Active 686442731 Problem Essential hypertension I10 Active 97264196 Problem Chronic kidney disease (CKD) stage G3b/A1, moderately decreased glomerular filtration rate (GFR) between 30-44 mL/min/1.73 square meter and albuminuria creatinine ratio less than 30 mg/g N18.3 Active 443309384 Problem Fibromyalgia M79.7 Active 240547580 ALLERGIES Substance Reaction Event Type Date Status Penicillin V Potassium anaphylaxis Drug Allergy Oct, Active Lyrica Unknown Drug Allergy Oct, Active Darvocet-N 100 anaphylaxis Drug Allergy Oct, Active ENCOUNTERS Encounter Location Date Diagnosis [facility] [address] [facility] [id number] [address] Jan, [facility] [address] [facility] [id number], [place] [address] Dec, Type 2 diabetes mellitus without complication, without long- term current use of insulin E11.9 ; Chronic kidney disease (CKD) stage G3b/A1, moderately decreased glomerular filtration rate (GFR) between 30-44 mL/min/1.73 square meter and albuminuria creatinine ratio less than 30 mg/g N18.3 ; BMI 35.0 -35.9,adult Z68.35 ; Anemia, unspecified type D64.9 and Psychophysiological insomnia F51.04 [place] [address] [address] Nov, Fibromyalgia M79.7 [place] [address] [address] Nov, CKD (chronic kidney disease) stage 2, GFR 60-89 ml/min N18.2 [place] [address] [address] Nov, Chronic kidney disease (CKD) stage G3b/A1, moderately decreased glomerular filtration rate (GFR) between 30-44 mL/min/1.73 square meter and albuminuria creatinine ratio less than 30 mg/g N18.3 [place] [address] [address] Nov, Chronic kidney disease (CKD) stage G3b/A1, moderately decreased glomerular filtration rate (GFR) between 30-44 mL/min/1.73 square meter and albuminuria creatinine ratio less than 30 mg/g N18.3 and CKD (chronic kidney disease) stage 2, GFR 60-89 ml/min N18.2 [place] [address] [place] [id number] [place] [address] Nov, CKD (chronic kidney disease) stage 2, GFR 60-89 ml/min N18.2 and Chronic kidney disease (CKD) stage G3b/A1, moderately decreased glomerular filtration rate (GFR) between 30-44 mL/min/1.73 square meter and albuminuria creatinine ratio less than 30 mg/g N18.3 [place] [address] [address] Nov, Fibromyalgia M79.7 ; Pain of left foot M79.672 and Pain in right foot M79.671 [place] [address] [address] 17 Oct, 2017 Acute cystitis without hematuria N30.00 and Left foot pain M79.672 [place] [address] [address] Oct, [place] [address] [address] Oct, Chronic kidney disease (CKD) stage G3b/A1, moderately decreased glomerular filtration rate (GFR) between 30-44 mL/min/1.73 square meter and albuminuria creatinine ratio less than 30 mg/g N18.3 and BMI 40.0-44.9 , adult Z68.[address] [address] Oct, Chronic kidney disease (CKD) stage G3b/A1, moderately decreased glomerular filtration rate (GFR) between 30-44 mL/min/1.73 square meter and albuminuria creatinine ratio less than 30 mg/g N18.[address] [address] Sep, Type 2 diabetes mellitus without complication, without long- term current use of insulin E11.9 [place] [address] [address] Sep, Left foot pain M79.672 ; Bilateral edema of lower extremity R60.0 ; Chronic diastolic CHF (congestive heart failure) I50.32 and Chronic kidney disease (CKD) stage G3b/A1, moderately decreased glomerular filtration rate (GFR) between 30-44 mL/min/1.73 square meter and albuminuria creatinine ratio less than 30 mg/g N18.3 [place] [address] [place] [id number] [place] [address]607- 67[address] 05 Sep, 2017 Side effect of medication T88.7XXA ; Peripheral edema R60.9 and Chronic kidney disease (CKD) stage G3b/A1, moderately decreased glomerular filtration rate (GFR) between 30-44 mL/min/1.73 square meter and albuminuria creatinine ratio less than 30 mg/g N18.3 [place] [address] [place] [id number] [place] [address] 07853- 4493 Sep, [place] [address] [place] [id number] [place] [address] 57960- 20[address] August, CKD (chronic kidney disease) stage 2, GFR 60-89 ml/min N18.2 [place] [address] [address] August, Chronic diastolic CHF (congestive heart failure) I50.32 ; CKD (chronic kidney disease) stage 2, GFR 60-89 ml/min N18.2 ; BMI 40.0-44.9, adult Z68.41 and Fibromyalgia M79.[address] [address] August, [place] [address] [place] [id number] [place] [address] 8[address]- [address] August, [place] [id number] [place] [address] 15079- 160[address] Jul, Medicare annual wellness visit, initial Z00.00 [...] ml/min N18.2 and Encounter for immunization Z23 [place] [id number] [place] [address] 6[address]39- 6661 Jul, Localized swelling of both lower legs R22.43 ; Essential hypertension I10 ; Chronic diastolic CHF (congestive heart failure) I50.32 ; BMI 40.0-44.9, adult Z68.41 and CKD (chronic kidney disease) stage 2, GFR 60-89 ml/min N18.2 [facility] [address] [address] Jul, [facility] [address] [place] [id number] [place] [address] 2546 Jun, [facility] [address] [place] [id number] [place] [address] 61733- 8586 Jun, Elevated serum creatinine R79.89 [facility] [address] [place] [id number] [place] [address] 64957- 50[address] May, Elevated serum creatinine R79.89 [place] [address] [place] [id number] [place] [address] 93440- 2666 Apr, Chronic congestive heart failure, unspecified congestive heart failure type I50.9 ; Essential hypertension I10 ; Type 2 diabetes mellitus without complication, without long-term current use of insulin E11.9 ; Arthritis M19.90 ; Depression, reactive F32.9 ; Screening for lipid disorders Z13.220 ; Screening for breast cancer Z12.31 and BMI 40.0-44.9, adult Z68.41 [facility] [address] [place] [address] [id number] [place] [address] [phone] Feb, Dental examination Z01.20 [facility] [address] [place] [id number] [place] [address] [phone] Nov, Dental examination Z01.20 [place] [id number] [place] [address] 44629- 25[address] Oct, [facility] [address] [place] [id number] [place] [address] [phone] Apr, IMMUNIZATIONS No Known Immunizations SOCIAL HISTORY Never Assessed REASON FOR VISIT kidney c/o, had labs done this am and a urine culture was already sent- Cynthia PLAN OF CARE Activity Details Follow Up 2 - 3 Days if not better Reason:flank pain VITAL SIGNS Height 65.75 in 2017-10-20 Weight 248.3 lbs 2017-10-20 Temperature 99.0 degrees Fahrenheit 2017-10-20 Heart Rate 80 bpm 2017-10-20 Respiratory Rate 20 2017-10-20 BMI 40.38 kg/m2 2017-10-20 Blood pressure systolic 96 mmHg 2017-10-20 Blood pressure diastolic 56 mmHg 2017-10-20 MEDICATIONS Medication Instructions Dosage Frequency Start Date End Date Duration Status Tylenol 8 Hour Arthritis Pain 650 MG Orally 2 times a day 2 tablets as needed 12h Active Co Q-10 200 MG Orally Once a day 1 capsule with a meal 24h Active Aspir-81 81 MG Orally Once a day 1 tablet 24h Active Glucosamine Chondr 1500 Complx - Orally 2 times a day 1 capsule 12h Active Multivitamins - Orally Once a day 1 capsule 24h Active Simvastatin 40 mg Orally Once a day 1 tablet 24h Active Furosemide 40 mg Orally Once a day 1 tablet 24h Active Claritin 10 MG Orally Once a day 1 tablet 24h Active Ranitidine HCl 150 MG Orally twice a day 1 tablet 12h Active Metformin HCl 500 mg Orally Twice a day 2 tablets 12h Active Lisinopril 5 mg Orally Once a day 1 tablet 24h Active Vitamin D-3 1000 UNIT Orally Once a day 1 capsule 24h Active Super B-Complex - Orally Once a day 1 capsule 24h Active Glimepiride 4 MG Orally twice a day 1 tablet 12h Active Flunisolide 25 MCG/ACT (0.025%) Nasally Twice a day 2 sprays in each nostril 12h Active Carvedilol 25 MG Orally 2 times a day 2 tablets 12h Active RESULTS No Results PROCEDURES Procedure Date Ordered Result Body Site [facility] VISIT ESTABLISHED PATIENT October 20, 2017 INSTRUCTIONS MEDICATIONS ADMINISTERED No Known [...]
--- OUTSIDE RECORDS SUMMARY | 2018-01-01 17:32 | XMS REPORT ---
Author Author KRISTAL NICHOLSON Organization [facility] Address [address] [place] [address] Care Team Providers Care Quality Control Supervisor Name Role Phone KRISTAL NICHOLSON Unavailable PROBLEMS Type Condition ICD9-CM Code BJX19-BU Code Onset Dates Condition Status SNOMED Code Problem Type 2 diabetes mellitus without complication, without long-term current use of insulin E11.9 Active 809762577 Problem Arthritis M19.90 Active 9665251 Problem Reactive depression F32.9 Active 13448446 Problem Malignant neoplasm of left female breast, unspecified estrogen receptor status, unspecified site of breast C50.912 Active 298924963 Problem Chronic diastolic CHF (congestive heart failure) I50.32 Active 307001694 Problem Status post left mastectomy Z90.12 Active 039049682 Problem Depression, reactive F32.9 Active 64148631 Problem Psychophysiological insomnia F51.04 Active 857654465 Problem BMI 35.0-35.9,adult Z68.35 Active 967766269 Problem CKD (chronic kidney disease) stage 2, GFR 60-89 ml/min N18.2 Active 143526134 Problem Essential hypertension I10 Active 52310322 Problem Chronic kidney disease (CKD) stage G3b/A1, moderately decreased glomerular filtration rate (GFR) between 30-44 mL/min/1.73 square meter and albuminuria creatinine ratio less than 30 mg/g N18.3 Active 998871949 Problem Fibromyalgia M79.7 Active 983731984 ALLERGIES No Information ENCOUNTERS Encounter Location Date Diagnosis [facility] [address] [facility] [id number] [address] Jan, [facility] [address] [facility] [id number] [address] 04 Dec, 2017 Type 2 diabetes mellitus without complication, without long- term current use of insulin E11.9 ; Chronic kidney disease (CKD) stage G3b/A1, moderately decreased glomerular filtration rate (GFR) between 30-44 mL/min/1.73 square meter and albuminuria creatinine ratio less than 30 mg/g N18.3 ; BMI 35.0 -35.9,adult Z68.35 ; Anemia, unspecified type D64.9 and Psychophysiological insomnia F51.04 [place] [address] [place] [id number] [place] [address] Nov, Fibromyalgia M79.7 [place] [address] [address]- [address] Nov, CKD (chronic kidney disease) stage 2, GFR 60-89 ml/min N18.2 [place] [address] [address] 17 Nov, 2017 Chronic kidney disease (CKD) stage G3b/A1, moderately decreased glomerular filtration rate (GFR) between 30-44 mL/min/1.73 square meter and albuminuria creatinine ratio less than 30 mg/g N18.3 [place] [address] [place] [id number] [place] [address] 36092- 8487 Nov, Chronic kidney disease (CKD) stage G3b/A1, moderately decreased glomerular filtration rate (GFR) between 30-44 mL/min/1.73 square meter and albuminuria creatinine ratio less than 30 mg/g N18.3 and CKD (chronic kidney disease) stage 2, GFR 60-89 ml/min N18.2 [place] [address] [place] [id number] [place] [address]01- 4028 Nov, CKD (chronic kidney disease) stage 2, GFR 60-89 ml/min N18.2 and Chronic kidney disease (CKD) stage G3b/A1, moderately decreased glomerular filtration rate (GFR) between 30-44 mL/min/1.73 square meter and albuminuria creatinine ratio less than 30 mg/g N18.3 [place] [address] [place] [id number] [place] [address]- 28[address] 03 Nov, 2017 Fibromyalgia M79.7 ; Pain of left foot M79.672 and Pain in right foot M79.671 [place] [address] [place] [address] [place] [address] 17 Oct, 2017 Acute cystitis without hematuria N30.00 and Left foot pain M79.672 [place] [address] [address] Oct, [place] [address] [address] Oct, Chronic kidney disease (CKD) stage G3b/A1, moderately decreased glomerular filtration rate (GFR) between 30-44 mL/min/1.73 square meter and albuminuria creatinine ratio less than 30 mg/g N18.3 and BMI 40.0-44.9 , adult Z68.41 [place] [address] [address] Oct, Chronic kidney disease (CKD) stage G3b/A1, moderately decreased glomerular filtration rate (GFR) between 30-44 mL/min/1.73 square meter and albuminuria creatinine ratio less than 30 mg/g N18.3 [place] [address] [address]- [address] Sep, Type 2 diabetes mellitus without complication, without long- term current use of insulin E11.9 [place] [address] [address]- [address] 12 Sep, 2017 Left foot pain M79.672 ; Bilateral edema of lower extremity R60.0 ; Chronic diastolic CHF (congestive heart failure) I50.32 and Chronic kidney disease (CKD) stage G3b/A1, moderately decreased glomerular filtration rate (GFR) between 30-44 mL/min/1.73 square meter and albuminuria creatinine ratio less than 30 mg/g N18.3 [place] [address] [address]- [address] 05 Sep, 2017 Side effect of medication T88.7XXA ; Peripheral edema R60.9 and Chronic kidney disease (CKD) stage G3b/A1, moderately decreased glomerular filtration rate (GFR) between 30-44 mL/min/1.73 square meter and albuminuria creatinine ratio less than 30 mg/g N18.3 [place] [address] [place] [id number] [place] [address]82- 7966 Sep, [place] [address] [address]- [address] August, CKD (chronic kidney disease) stage 2, GFR 60-89 ml/min N18.2 [place] [address] 84[address]- [address]7 August, Chronic diastolic CHF (congestive heart failure) I50.32 ; CKD (chronic kidney disease) stage 2, GFR 60-89 ml/min N18.2 ; BMI 40.0-44.9, adult Z68.41 and Fibromyalgia M79.7 [place] [address] [address]- [address] August, [place] [address] [address]- [address] August, [place] [address] 0[address]- [address] Jul, Medicare annual wellness visit, initial Z00.00 [...] and Encounter for immunization Z23 [place] [address] [place] [id number] [place] [address] 80696- 7620 Jul, Localized swelling of both lower legs R22.43 ; Essential hypertension I10 ; Chronic diastolic CHF (congestive heart failure) I50.32 ; BMI 40.0-44.9, adult Z68.41 and CKD (chronic kidney disease) stage 2, GFR 60-89 ml/min N18.2 [place] [address] [place] [id number] [place] [address] 71[address]- 3651 Jul, [facility] [address] [place] [address] 10325- 9206 Jun, [facility] [address] [place] [id number] [place] [address] 76878037- 8876 Jun, Elevated serum creatinine R79.89 [facility] [address] [place] [id number] [place] [address] 481351- 2376 May, Elevated serum creatinine R79.89 [place] [address] 655724- 0316 Apr, Chronic congestive heart failure, unspecified congestive heart failure type I50.9 ; Essential hypertension I10 ; Type 2 diabetes mellitus without complication, without long-term current use of insulin E11.9 ; Arthritis M19.90 ; Depression, reactive F32.9 ; Screening for lipid disorders Z13.220 ; Screening for breast cancer Z12.31 and BMI 40.0-44.9, adult Z68.41 [facility] [address] [place] [id number] [place] [address] [phone] Feb, Dental examination Z01.20 [facility] [address] [id number] [place] [address] [phone] Nov, Dental examination Z01.20 [place] [address] [place] [id number] [place] [address] 81466- 2546 Oct, [facility] [address] [id number] [place] [address] [id number] Apr, IMMUNIZATIONS No Known Immunizations SOCIAL HISTORY Never Assessed REASON FOR VISIT Lab (walk-in) PLAN OF CARE VITAL SIGNS MEDICATIONS Unknown Medications RESULTS No Results PROCEDURES Procedure Date Ordered Result Body Site LAB NOT BILLED BY [facility] October 20, 2017 URINALYSIS, AUTO, W/O SCOPE October 20, 2017 VENIPUNCT, ROUTINE* October 20, 2017 INSTRUCTIONS MEDICATIONS ADMINISTERED No [...]
--- OUTSIDE RECORDS SUMMARY | 2018-01-01 17:33 | XMS REPORT ---
Author Author KRISTAL NICHOLSON Organization [facility] Address [address] [place] [address] Care Team Providers Care Financial Institution Manager Name Role Phone KRISTAL NICHOLSON Unavailable PROBLEMS Type Condition ICD9-CM Code CVG06-AX Code Onset Dates Condition Status SNOMED Code Problem Type 2 diabetes mellitus without complication, without long-term current use of insulin E11.9 Active 635814139 Problem BMI 40.0-44.9, adult Z68.41 Active 729029733 Problem Reactive depression F32.9 Active 20412767 Problem Chronic diastolic CHF (congestive heart failure) I50.32 Active 811154848 Problem Status post left mastectomy Z90.12 Active 679346489 Problem Malignant neoplasm of left female breast, unspecified estrogen receptor status, unspecified site of breast C50.912 Active 692670862 Problem Chronic kidney disease (CKD) stage G3b/A1, moderately decreased glomerular filtration rate (GFR) between 30-44 mL/min/1.73 square meter and albuminuria creatinine ratio less than 30 mg/g N18.3 Active 028741152 Problem Fibromyalgia M79.7 Active 582227315 Problem Essential hypertension I10 Active 25367634 Problem Arthritis M19.90 Active 6524856 Problem CKD (chronic kidney disease) stage 2, GFR 60-89 ml/min N18.2 Active 235147345 Problem Depression, reactive F32.9 Active 12469215 ALLERGIES No Information ENCOUNTERS Encounter Location Date Diagnosis [facility] [address] [id number] [address] Jan, [facility] [address] [place] [id number] [place] [address]79- [address]684 Nov, 2018 Fibromyalgia M79.7 ; Pain of left foot M79.672 and Pain in right foot M79.671 [facility] [address] [place] [address] 62379- 4405 Oct, Acute cystitis without hematuria N30.00 and Left foot pain M79.672 [place] [address] [place] [id number] [place] [address] 61547- 8442 Oct, [place] [address] [place] [id number] [place] [address] 80632- 2545 Oct, Chronic kidney disease (CKD) stage G3b/A1, moderately decreased glomerular filtration rate (GFR) between 30-44 mL/min/1.73 square meter and albuminuria creatinine ratio less than 30 mg/g N18.3 and BMI 40.0-44.9 , adult Z68.41 [place] [address] [place] [id number] [place] [address] 07412- 3775 Oct, Chronic kidney disease (CKD) stage G3b/A1, moderately decreased glomerular filtration rate (GFR) between 30-44 mL/min/1.73 square meter and albuminuria creatinine ratio less than 30 mg/g N18.3 [place] [address] [place] [id number] [place] [address] 82011- 7256 Sep, Type 2 diabetes mellitus without complication, without long- term current use of insulin E11.9 [place] [address] [place] [id number] [place] [address] 35031- 7946 Sep, Left foot pain M79.672 ; Bilateral edema of lower extremity R60.0 ; Chronic diastolic CHF (congestive heart failure) I50.32 and Chronic kidney disease (CKD) stage G3b/A1, moderately decreased glomerular filtration rate (GFR) between 30-44 mL/min/1.73 square meter and albuminuria creatinine ratio less than 30 mg/g N18.3 [place] [address] [address] Sep, Side effect of medication T88.7XXA ; Peripheral edema R60.9 and Chronic kidney disease (CKD) stage G3b/A1, moderately decreased glomerular filtration rate (GFR) between 30-44 mL/min/1.73 square meter and albuminuria creatinine ratio less than 30 mg/g N18.3 [place] [address] [id number] [address] Sep, [place] [address] [place] [id number] [place] [address] 68356- 0127 August, CKD (chronic kidney disease) stage 2, GFR 60-89 ml/min N18.2 [place] [address] [place] [id number] [place] [address] 44242- 8171 August, Chronic diastolic CHF (congestive heart failure) I50.32 ; CKD (chronic kidney disease) stage 2, GFR 60-89 ml/min N18.2 ; BMI 40.0-44.9, adult Z68.41 and Fibromyalgia M79.[address] [address]- 9[address] August, [place] [address] [place] [id number] [place] [address] 12567- 4753 August, [place] [id number] [place] [address] 81384- 1049 Jul, Medicare annual wellness visit, initial Z00.00 [...] ml/min N18.2 and Encounter for immunization Z23 [place] [address] [place] [address] 29658- 0509 Jul, Localized swelling of both lower legs R22.43 ; Essential hypertension I10 ; Chronic diastolic CHF (congestive heart failure) I50.32 ; BMI 40.0-44.9, adult Z68.41 and CKD (chronic kidney disease) stage 2, GFR 60-89 ml/min N18.2 [place] [address] [place] [id number] [place] [address] 35084- 7549 Jul, [place] [address] [place] [address] 2546 Jun, [facility] [address] [place] [address] 91032- 6456 Jun, Elevated serum creatinine R79.89 [facility] [address] [place] [address] 34122- 2546 May, Elevated serum creatinine R79.89 [place] [address] [place] [id number] [place] [address] 84058- 2256 Apr, Chronic congestive heart failure, unspecified congestive heart failure type I50.9 ; Essential hypertension I10 ; Type 2 diabetes mellitus without complication, without long-term current use of insulin E11.9 ; Arthritis M19.90 ; Depression, reactive F32.9 ; Screening for lipid disorders Z13.220 ; Screening for breast cancer Z12.31 and BMI 40.0-44.9, adult Z68.41 [facility] [id number] [place] [address] [phone] Feb, Dental examination Z01.20 [facility] [id number] [place] [address] [id number] Nov, Dental examination Z01.20 [place] [address] [place] [address] 65843- 2546 Oct, [facility] [id number] [place] [address] [phone] Apr, IMMUNIZATIONS No Known Immunizations SOCIAL HISTORY Never Assessed REASON FOR VISIT Refill request PLAN OF CARE VITAL SIGNS MEDICATIONS Medication Instructions Dosage Frequency Start Date End Date Duration Status Glimepiride 4 MG Orally twice a day 1 tablet 12h Active RESULTS No Results PROCEDURES No Known [...]
--- OUTSIDE RECORDS SUMMARY | 2018-01-01 17:33 | XMS REPORT ---
Author Author KRISTAL NICHOLSON Organization [facility] Address [address] [place] [address] Care Team Providers Care Toolmaker Helper Name Role Phone KRISTAL NICHOLSON Unavailable PROBLEMS Type Condition ICD9-CM Code NBH85-KC Code Onset Dates Condition Status SNOMED Code Problem Type 2 diabetes mellitus without complication, without long-term current use of insulin E11.9 Active 158626098 Problem BMI 40.0-44.9, adult Z68.41 Active 593063456 Problem Reactive depression F32.9 Active 82031509 Problem Chronic diastolic CHF (congestive heart failure) I50.32 Active 664557854 Problem Status post left mastectomy Z90.12 Active 913337904 Problem Malignant neoplasm of left female breast, unspecified estrogen receptor status, unspecified site of breast C50.912 Active 942759815 Problem Chronic kidney disease (CKD) stage G3b/A1, moderately decreased glomerular filtration rate (GFR) between 30-44 mL/min/1.73 square meter and albuminuria creatinine ratio less than 30 mg/g N18.3 Active 662388875 Problem Fibromyalgia M79.7 Active 189305024 Problem Essential hypertension I10 Active 14203355 Problem Arthritis M19.90 Active 2040719 Problem CKD (chronic kidney disease) stage 2, GFR 60-89 ml/min N18.2 Active 671370673 Problem Depression, reactive F32.9 Active 39647615 ALLERGIES Substance Reaction Event Type Date Status Penicillin V Potassium anaphylaxis Drug Allergy Jul, Active Darvocet-N 100 anaphylaxis Drug Allergy Jul, Active ENCOUNTERS Encounter Location Date Diagnosis [facility] [address] [facility] [id number] [address] Jan, [facility] [address] [facility] [id number], [place] [address] Nov, CKD (chronic kidney disease) stage 2, GFR 60-89 ml/min N18.2 and Chronic kidney disease (CKD) stage G3b/A1, moderately decreased glomerular filtration rate (GFR) between 30-44 mL/min/1.73 square meter and albuminuria creatinine ratio less than 30 mg/g N18.3 [place] [address] [address] 03 Nov, 2017 Fibromyalgia M79.7 ; Pain of left foot M79.672 and Pain in right foot M79.671 [place] [address] [address] 17 Oct, 2017 Acute cystitis without hematuria N30.00 and Left foot pain M79.672 [place] [address] [address] Oct, [place] [address] [address] Oct, Chronic kidney disease (CKD) stage G3b/A1, moderately decreased glomerular filtration rate (GFR) between 30-44 mL/min/1.73 square meter and albuminuria creatinine ratio less than 30 mg/g N18.3 and BMI 40.0-44.9 , adult Z68.41 [place] [address] [place] [id number] [place] [address] Oct, Chronic kidney disease (CKD) stage G3b/A1, moderately decreased glomerular filtration rate (GFR) between 30-44 mL/min/1.73 square meter and albuminuria creatinine ratio less than 30 mg/g N18.3 [place] [address] [address] Sep, Type 2 diabetes mellitus without complication, without long- term current use of insulin E11.9 [place] [address] [address] Sep, Left foot pain M79.672 ; Bilateral edema of lower extremity R60.0 ; Chronic diastolic CHF (congestive heart failure) I50.32 and Chronic kidney disease (CKD) stage G3b/A1, moderately decreased glomerular filtration rate (GFR) between 30-44 mL/min/1.73 square meter and albuminuria creatinine ratio less than 30 mg/g N18.3 [place] [address] [place] [address] 72648[address] 69[address] 05 Sep, 2017 Side effect of medication T88.7XXA ; Peripheral edema R60.9 and Chronic kidney disease (CKD) stage G3b/A1, moderately decreased glomerular filtration rate (GFR) between 30-44 mL/min/1.73 square meter and albuminuria creatinine ratio less than 30 mg/g N18.3 [place] [address] [place] [id number] [place] [address]- [address] 04 Sep, 2017 [place] [address] [address] August, CKD (chronic kidney disease) stage 2, GFR 60-89 ml/min N18.2 [place] [id number] [place] [address] 27[address]- 64[address] August, Chronic diastolic CHF (congestive heart failure) I50.32 ; CKD (chronic kidney disease) stage 2, GFR 60-89 ml/min N18.2 ; BMI 40.0-44.9, adult Z68.41 and Fibromyalgia M79.7 [place] [id number] [place] [address]- 20[address] August, [place] [address] [place] [id number] [place] [address] 34147- 3[address] August, [place] [address] [place] [id number] [place] [address] 97881- 365[address] Jul, Medicare annual wellness visit, initial Z00.00 [...] ml/min N18.2 and Encounter for immunization Z23 [facility] [place] [id number] [place] [address] [id number] Jul, Localized swelling of both lower legs R22.43 ; Essential hypertension I10 ; Chronic diastolic CHF (congestive heart failure) I50.32 ; BMI 40.0-44.9, adult Z68.41 and CKD (chronic kidney disease) stage 2, GFR 60-89 ml/min N18.[address] [address] Jul, [address] [address]- [address] Jun, [address] [address]- [address] Jun, Elevated serum creatinine R79.[address] [address] May, Elevated serum creatinine R79.89 [place] [id number] [place] [address] 46300- 4005 Apr, Chronic congestive heart failure, unspecified congestive heart failure type I50.9 ; Essential hypertension I10 ; Type 2 diabetes mellitus without complication, without long-term current use of insulin E11.9 ; Arthritis M19.90 ; Depression, reactive F32.9 ; Screening for lipid disorders Z13.220 ; Screening for breast cancer Z12.31 and BMI 40.0-44.9, adult Z68.41 [facility] [address] [place] [id number] [place] [address] [phone] Feb, Dental examination Z01.20 [facility] [address] [place] [id number] [place] [address] [phone] Nov, Dental examination Z01.20 [place] [id number] [place] [address] 25[address] Oct, [facility] [address] [place] [id number] [place] [address] [phone] Apr, IMMUNIZATIONS No Known Immunizations SOCIAL HISTORY Never Assessed REASON FOR VISIT Annual physical--Mayco Olivo would like to address her feet that are swollen and in pain PLAN OF CARE Activity Details Follow Up 3 Months with Mitesh goncalves CHF/HTN/DM Reason: VITAL SIGNS Height 65.75 in 2017-07-28 Weight 260.8 lbs 2017-07-28 Temperature 99.8 degrees Fahrenheit 2017-07-28 Heart Rate 80 bpm 2017-07-28 Respiratory Rate 20 2017-07-28 BMI 42.41 kg/m2 2017-07-28 Blood pressure systolic 112 mmHg 2017-07-28 Blood pressure diastolic 68 mmHg 2017-07-28 MEDICATIONS Medication Instructions Dosage Frequency Start Date End Date Duration Status Furosemide 40 mg Orally Once a day 1 tablet 24h Active Vitamin D-3 1000 UNIT Orally Once a day 2 capsule 24h Active Multivitamin 1 tablet Active Metformin HCl 500 mg Orally Twice a day 2 tablets 12h Active Super B-Complex - Active Glimepiride 4 MG Orally twice a day 1 tablet 12h Active Lisinopril 5 MG Orally Once a day 1 tablet 24h Active Tylenol 8 Hour Arthritis Pain 650 MG Orally 2 times a day 2 tablets as needed 12h Active Glucosamine Chondr 1500 Complx - Orally 2 times a day 1 capsule 12h Active Aspir-81 81 MG Orally Once a day 1 tablet 24h Active Simvastatin 40 MG Orally Once a day 1 tablet 24h Active Flunisolide 25 MCG/ACT (0.025%) Nasally Twice a day 2 sprays in each nostril 12h Active Ranitidine HCl 150 MG Orally twice a day 1 tablet 12h Active Co Q-10 200 MG Orally Once a day 1 capsule with a meal 24h Active Claritin 10 MG Orally Once a day 1 tablet 24h Active Carvedilol 25 MG Orally 2 times a day 2 tablets 12h Active RESULTS No Results PROCEDURES Procedure Date Ordered Result Body Site [facility] VISIT ESTABLISHED PATIENT July 28, 2017 INSTRUCTIONS MEDICATIONS ADMINISTERED No Known Medications [...]
--- OUTSIDE RECORDS SUMMARY | 2018-01-01 17:33 | XMS REPORT ---
Author Author KRISTAL NICHOLSON Organization [facility] Address [address] [place] [address] Care Team Providers Care Entry Level Receptionist Name Role Phone KRISTAL NICHOLSON Unavailable PROBLEMS Type Condition ICD9-CM Code CGU62-SE Code Onset Dates Condition Status SNOMED Code Problem Type 2 diabetes mellitus without complication, without long-term current use of insulin E11.9 Active 086624679 Problem BMI 40.0-44.9, adult Z68.41 Active 227422609 Problem Reactive depression F32.9 Active 59716816 Problem Chronic diastolic CHF (congestive heart failure) I50.32 Active 402968030 Problem Status post left mastectomy Z90.12 Active 216387590 Problem Malignant neoplasm of left female breast, unspecified estrogen receptor status, unspecified site of breast C50.912 Active 930399036 Problem Chronic kidney disease (CKD) stage G3b/A1, moderately decreased glomerular filtration rate (GFR) between 30-44 mL/min/1.73 square meter and albuminuria creatinine ratio less than 30 mg/g N18.3 Active 929180825 Problem Fibromyalgia M79.7 Active 144535753 Problem Essential hypertension I10 Active 12184243 Problem Arthritis M19.90 Active 0796104 Problem CKD (chronic kidney disease) stage 2, GFR 60-89 ml/min N18.2 Active 308301808 Problem Depression, reactive F32.9 Active 41339909 ALLERGIES Substance Reaction Event Type Date Status Penicillin V Potassium anaphylaxis Drug Allergy August, Active Darvocet-N 100 anaphylaxis Drug Allergy August, Active ENCOUNTERS Encounter Location Date Diagnosis [facility] [address] [facility] [id number], [place] [address] Jan, [facility] [address] [facility] [id number], [place] [address] Nov, CKD (chronic kidney disease) stage 2, GFR 60-89 ml/min N18.2 and Chronic kidney disease (CKD) stage G3b/A1, moderately decreased glomerular filtration rate (GFR) between 30-44 mL/min/1.73 square meter and albuminuria creatinine ratio less than 30 mg/g N18.3 [place] [address] [address] 03 Nov, 2017 Fibromyalgia M79.7 ; Pain of left foot M79.672 and Pain in right foot M79.671 [place] [address] [address] 17 Oct, 2017 Acute cystitis without hematuria N30.00 and Left foot pain M79.672 [place] [address] [address] Oct, [place] [address] [address] Oct, Chronic kidney disease (CKD) stage G3b/A1, moderately decreased glomerular filtration rate (GFR) between 30-44 mL/min/1.73 square meter and albuminuria creatinine ratio less than 30 mg/g N18.3 and BMI 40.0-44.9 , adult Z68.41 [place] [address] [place] [id number] [place] [address] Oct, Chronic kidney disease (CKD) stage G3b/A1, moderately decreased glomerular filtration rate (GFR) between 30-44 mL/min/1.73 square meter and albuminuria creatinine ratio less than 30 mg/g N18.3 [place] [address] [address]- [address] Sep, Type 2 diabetes mellitus without complication, without long- term current use of insulin E11.9 [place] [address] [address]- [address] Sep, Left foot pain M79.672 ; Bilateral edema of lower extremity R60.0 ; Chronic diastolic CHF (congestive heart failure) I50.32 and Chronic kidney disease (CKD) stage G3b/A1, moderately decreased glomerular filtration rate (GFR) between 30-44 mL/min/1.73 square meter and albuminuria creatinine ratio less than 30 mg/g N18.3 [place] [address] [place] [address] 22176- 99[address] 05 Sep, 2017 Side effect of medication T88.7XXA ; Peripheral edema R60.9 and Chronic kidney disease (CKD) stage G3b/A1, moderately decreased glomerular filtration rate (GFR) between 30-44 mL/min/1.73 square meter and albuminuria creatinine ratio less than 30 mg/g N18.3 [place] [address] [place] [id number] [place] [address] 27164- 9[address] 04 Sep, 2017 [place] [address] [address] August, CKD (chronic kidney disease) stage 2, GFR 60-89 ml/min N18.2 [place] [id number] [place] [address]- [address] August, Chronic diastolic CHF (congestive heart failure) I50.32 ; CKD (chronic kidney disease) stage 2, GFR 60-89 ml/min N18.2 ; BMI 40.0-44.9, adult Z68.41 and Fibromyalgia M79.7 [place] [id number] [place] [address] 9[address]72- 18[address] August, [place] [address] [place] [id number] [place] [address] 98642- 6811 August, [place] [address] [place] [id number] [place] [address]- 39[address] Jul, Medicare annual wellness visit, initial Z00.00 [...] and Encounter for immunization Z23 [facility] [place] [id number] [place] [address] 36381- 40[address] Jul, Localized swelling of both lower legs R22.43 ; Essential hypertension I10 ; Chronic diastolic CHF (congestive heart failure) I50.32 ; BMI 40.0-44.9, adult Z68.41 and CKD (chronic kidney disease) stage 2, GFR 60-89 ml/min N18.[address] [address]- [address]357 Jul, [address] [address]- 6811 Jun, [address] [address]- [address] Jun, Elevated serum creatinine R79.[address] [address]- [address] May, Elevated serum creatinine R79.89 [place] [id number] [place] [address] 18307- 3912 Apr, Chronic congestive heart failure, unspecified congestive heart failure type I50.9 ; Essential hypertension I10 ; Type 2 diabetes mellitus without complication, without long-term current use of insulin E11.9 ; Arthritis M19.90 ; Depression, reactive F32.9 ; Screening for lipid disorders Z13.220 ; Screening for breast cancer Z12.31 and BMI 40.0-44.9, adult Z68.41 [facility] [address] [place] [id number] [place] [address] [id number] Feb, Dental examination Z01.20 [facility] [address] [place] [id number] [place] [address] [id number] Nov, Dental examination Z01.20 [place] [id number] [place] [address] 87346 2546 Oct, [facility] [address] [place] [id number] [place] [address] [phone] Apr, IMMUNIZATIONS No Known Immunizations SOCIAL HISTORY Never Assessed REASON FOR VISIT Leg Swelling-[facility] PLAN OF CARE Activity Details Follow Up 3 Months with Mitesh for swelling and pain Reason: VITAL SIGNS Height 65.75 in 2017-08-16 Weight 259.7 lbs 2017-08-16 Temperature 98.4 degrees Fahrenheit 2017-08-16 Heart Rate 96 bpm 2017-08-16 Respiratory Rate 20 2017-08-16 BMI 42.23 kg/m2 2017-08-16 Blood pressure systolic 126 mmHg 2017-08-16 Blood pressure diastolic 72 mmHg 2017-08-16 MEDICATIONS Medication Instructions Dosage Frequency Start Date End Date Duration Status Vitamin D-3 1000 UNIT Orally Once a day 1 capsule 24h Active Multivitamins - Orally Once a day 1 capsule 24h Active Glucosamine Chondr 1500 Complx - Orally 2 times a day 1 capsule 12h Active Super B-Complex - Orally Once a day 1 capsule 24h Active Metformin HCl 500 mg Orally Twice a day 2 tablets 12h Active Lyrica 75 MG Orally Once a day x1 week then BID 1 capsule 1 to 3 hours before bedtime in the evening August, 30 days Active Glimepiride 4 MG Orally twice a day 1 tablet 12h Active Lisinopril 5 mg Orally Once a day 1 tablet 24h Active Ranitidine HCl 150 MG Orally twice a day 1 tablet 12h Active Carvedilol 25 MG Orally 2 times a day 2 tablets 12h Active Claritin 10 MG Orally Once a day 1 tablet 24h Active Flunisolide 25 MCG/ACT (0.025%) Nasally Twice a day 2 sprays in each nostril 12h Active Furosemide 40 mg Orally Once a day 1 tablet 24h Active Aspir-81 81 MG Orally Once a day 1 tablet 24h Active Co Q-10 200 MG Orally Once a day 1 capsule with a meal 24h Active Meloxicam 7.5 MG Orally Once a day 1 tablet 24h August, Nov, 30 day(s) Active Tylenol 8 Hour Arthritis Pain 650 MG Orally 2 times a day 2 tablets as needed 12h Active Simvastatin 40 mg Orally Once a day 1 tablet 24h Active RESULTS No Results PROCEDURES Procedure Date Ordered Result Body Site [facility] VISIT ESTABLISHED PATIENT August 16, 2017 INSTRUCTIONS MEDICATIONS ADMINISTERED No Known Medications [...]
--- OUTSIDE RECORDS SUMMARY | 2018-01-01 17:33 | XMS REPORT ---
Author Author KRISTAL NICHOLSON Organization [facility] Address [address] [place] [address] Care Team Providers Care Command Post Craftsman Name Role Phone KRISTAL NICHOLSON Unavailable PROBLEMS Type Condition ICD9-CM Code QKE26-YH Code Onset Dates Condition Status SNOMED Code Problem Type 2 diabetes mellitus without complication, without long-term current use of insulin E11.9 Active 760863755 Problem BMI 40.0-44.9, adult Z68.41 Active 586357799 Problem Reactive depression F32.9 Active 06507378 Problem Chronic diastolic CHF (congestive heart failure) I50.32 Active 898607558 Problem Status post left mastectomy Z90.12 Active 895086426 Problem Malignant neoplasm of left female breast, unspecified estrogen receptor status, unspecified site of breast C50.912 Active 991964244 Problem Chronic kidney disease (CKD) stage G3b/A1, moderately decreased glomerular filtration rate (GFR) between 30-44 mL/min/1.73 square meter and albuminuria creatinine ratio less than 30 mg/g N18.3 Active 626691901 Problem Fibromyalgia M79.7 Active 266147072 Problem Essential hypertension I10 Active 35691923 Problem Arthritis M19.90 Active 5231436 Problem CKD (chronic kidney disease) stage 2, GFR 60-89 ml/min N18.2 Active 730919034 Problem Depression, reactive F32.9 Active 85092585 ALLERGIES No Information ENCOUNTERS Encounter Location Date Diagnosis [facility] [address] [facility] [id number], [place] [address] Jan, [facility] [address] [facility] [id number], [place] [address] Nov, Chronic kidney disease (CKD) stage G3b/A1, moderately decreased glomerular filtration rate (GFR) between 30-44 mL/min/1.73 square meter and albuminuria creatinine ratio less than 30 mg/g N18.3 and CKD (chronic kidney disease) stage 2, GFR 60-89 ml/min N18.2 [place] [address] [place] [id number] [place] [address] 05915- [address] Nov, CKD (chronic kidney disease) stage 2, GFR 60-89 ml/min N18.2 and Chronic kidney disease (CKD) stage G3b/A1, moderately decreased glomerular filtration rate (GFR) between 30-44 mL/min/1.73 square meter and albuminuria creatinine ratio less than 30 mg/g N18.3 [place] [address] [address] Nov, Fibromyalgia M79.7 ; Pain of left foot M79.672 and Pain in right foot M79.[address] [address] Oct, Acute cystitis without hematuria N30.00 and Left foot pain M79.[address] [address]- [address]563 Oct, [address] [address]- [address] Oct, Chronic kidney disease (CKD) stage G3b/A1, moderately decreased glomerular filtration rate (GFR) between 30-44 mL/min/1.73 square meter and albuminuria creatinine ratio less than 30 mg/g N18.3 and BMI 40.0-44.9 , adult Z68.[address] [address]- [address] Oct, Chronic kidney disease (CKD) stage G3b/A1, moderately decreased glomerular filtration rate (GFR) between 30-44 mL/min/1.73 square meter and albuminuria creatinine ratio less than 30 mg/g N18.[address] [address]36- 9570 Sep, Type 2 diabetes mellitus without complication, without long- term current use of insulin E11.[address] [address]- [address] Sep, Left foot pain M79.672 ; Bilateral edema of lower extremity R60.0 ; Chronic diastolic CHF (congestive heart failure) I50.32 and Chronic kidney disease (CKD) stage G3b/A1, moderately decreased glomerular filtration rate (GFR) between 30-44 mL/min/1.73 square meter and albuminuria creatinine ratio less than 30 mg/g N18.3 [place] [address] [place] [id number] [place] [address] 18837- 5997 05 Sep, 2017 Side effect of medication T88.7XXA ; Peripheral edema R60.9 and Chronic kidney disease (CKD) stage G3b/A1, moderately decreased glomerular filtration rate (GFR) between 30-44 mL/min/1.73 square meter and albuminuria creatinine ratio less than 30 mg/g N18.3 [place] [address] [place] [id number] [place] [address] 85152- 9866 04 Sep, 2017 [place] [address] [place] [id number] [place] [address] 34395- 0210 August, CKD (chronic kidney disease) stage 2, GFR 60-89 ml/min N18.2 [place] [address] [place] [id number] [place] [address] 08861- 5757 08 Aug, 2017 Chronic diastolic CHF (congestive heart failure) I50.32 ; CKD (chronic kidney disease) stage 2, GFR 60-89 ml/min N18.2 ; BMI 40.0-44.9, adult Z68.41 and Fibromyalgia M79.7 [place] [address] [place] [id number] [place] [address]11- 4326 August, [place] [address] [place] [id number] [place] [address] 38825- 6167 August, [place] [address] [place] [id number] [place] [address] 71363- 2079 Jul, Medicare annual wellness visit, initial Z00.00 [...] ml/min N18.2 and Encounter for immunization Z23 [facility] [address] [place] [id number] [place] [address]26- 3518 Jul, Localized swelling of both lower legs R22.43 ; Essential hypertension I10 ; Chronic diastolic CHF (congestive heart failure) I50.32 ; BMI 40.0-44.9, adult Z68.41 and CKD (chronic kidney disease) stage 2, GFR 60-89 ml/min N18.2 [place] [address] [address]- [address] 17 Jul, 2017 [place] [address] [place] [id number] [place] [address] 80002- 3359 Jun, [place] [address] [address]- 0[address] Jun, Elevated serum creatinine R79.89 [place] [address] 55591- 4[address] May, Elevated serum creatinine R79.89 [place] [address] [place] [id number] [place] [address]562- [address] Apr, Chronic congestive heart failure, unspecified congestive heart failure type I50.9 ; Essential hypertension I10 ; Type 2 diabetes mellitus without complication, without long-term current use of insulin E11.9 ; Arthritis M19.90 ; Depression, reactive F32.9 ; Screening for lipid disorders Z13.220 ; Screening for breast cancer Z12.31 and BMI 40.0-44.9, adult Z68.41 [facility] [address] [place] [id number] [place] [address] [id number] Feb, Dental examination Z01.20 [facility] [address] [place] [id number] [place] [address] [id number] Nov, Dental examination Z01.20 [facility] [address] [id number] [address] Oct, [facility] [address] [facility] [id number] [id number] Apr, IMMUNIZATIONS No Known Immunizations SOCIAL HISTORY Never Assessed REASON FOR VISIT Lab (walk-in) PLAN OF CARE VITAL SIGNS MEDICATIONS Unknown Medications RESULTS No Results PROCEDURES Procedure Date Ordered Result Body Site LAB NOT BILLED BY [facility] August 25, 2017 INSTRUCTIONS MEDICATIONS ADMINISTERED No Known [...]
--- OUTSIDE RECORDS SUMMARY | 2018-01-01 17:33 | XMS REPORT ---
Author Author KRISTAL NICHOLSON Organization [facility] Address [address] [place] [address] Care Team Providers Care Supervisor Dental Laboratory Name Role Phone KRISTAL NICHOLSON Unavailable PROBLEMS Type Condition ICD9-CM Code SXW89-HS Code Onset Dates Condition Status SNOMED Code Problem Type 2 diabetes mellitus without complication, without long-term current use of insulin E11.9 Active 976036464 Problem BMI 40.0-44.9, adult Z68.41 Active 986327994 Problem Reactive depression F32.9 Active 50579191 Problem Chronic diastolic CHF (congestive heart failure) I50.32 Active 420138981 Problem Status post left mastectomy Z90.12 Active 131948197 Problem Malignant neoplasm of left female breast, unspecified estrogen receptor status, unspecified site of breast C50.912 Active 163463143 Problem Chronic kidney disease (CKD) stage G3b/A1, moderately decreased glomerular filtration rate (GFR) between 30-44 mL/min/1.73 square meter and albuminuria creatinine ratio less than 30 mg/g N18.3 Active 545516168 Problem Fibromyalgia M79.7 Active 923721754 Problem Essential hypertension I10 Active 50477469 Problem Arthritis M19.90 Active 2008141 Problem CKD (chronic kidney disease) stage 2, GFR 60-89 ml/min N18.2 Active 789272196 Problem Depression, reactive F32.9 Active 28186283 ALLERGIES Substance Reaction Event Type Date Status Penicillin V Potassium anaphylaxis Drug Allergy Jul, Active Darvocet-N 100 anaphylaxis Drug Allergy Jul, Active ENCOUNTERS Encounter Location Date Diagnosis [facility] [address] [facility] [id number] [address] Jan, [facility] [address] [facility] [id number], [place] [address] Nov, CKD (chronic kidney disease) stage 2, GFR 60-89 ml/min N18.2 and Chronic kidney disease (CKD) stage G3b/A1, moderately decreased glomerular filtration rate (GFR) between 30-44 mL/min/1.73 square meter and albuminuria creatinine ratio less than 30 mg/g N18.3 [place] [address] [address] 03 Nov, 2017 Fibromyalgia M79.7 ; Pain of left foot M79.672 and Pain in right foot M79.671 [place] [address] [address] 17 Oct, 2017 Acute cystitis without hematuria N30.00 and Left foot pain M79.672 [place] [address] [address] Oct, [place] [address] [address] Oct, Chronic kidney disease (CKD) stage G3b/A1, moderately decreased glomerular filtration rate (GFR) between 30-44 mL/min/1.73 square meter and albuminuria creatinine ratio less than 30 mg/g N18.3 and BMI 40.0-44.9 , adult Z68.41 [place] [address] [place] [id number] [place] [address] Oct, Chronic kidney disease (CKD) stage G3b/A1, moderately decreased glomerular filtration rate (GFR) between 30-44 mL/min/1.73 square meter and albuminuria creatinine ratio less than 30 mg/g N18.3 [place] [address] [address] Sep, Type 2 diabetes mellitus without complication, without long- term current use of insulin E11.9 [place] [address] [address] Sep, Left foot pain M79.672 ; Bilateral edema of lower extremity R60.0 ; Chronic diastolic CHF (congestive heart failure) I50.32 and Chronic kidney disease (CKD) stage G3b/A1, moderately decreased glomerular filtration rate (GFR) between 30-44 mL/min/1.73 square meter and albuminuria creatinine ratio less than 30 mg/g N18.3 [place] [address] [place] [address] 05 Sep, 2017 Side effect of medication T88.7XXA ; Peripheral edema R60.9 and Chronic kidney disease (CKD) stage G3b/A1, moderately decreased glomerular filtration rate (GFR) between 30-44 mL/min/1.73 square meter and albuminuria creatinine ratio less than 30 mg/g N18.3 [place] [address] [place] [id number] [place] [address] 04 Sep, 2017 [place] [address] [address] August, CKD (chronic kidney disease) stage 2, GFR 60-89 ml/min N18.2 [place] [id number] [place] [address] 24[address] August, Chronic diastolic CHF (congestive heart failure) I50.32 ; CKD (chronic kidney disease) stage 2, GFR 60-89 ml/min N18.2 ; BMI 40.0-44.9, adult Z68.41 and Fibromyalgia M79.7 [place] [id number] [place] [address] August, [place] [address] [place] [id number] [place] [address] 12[address] August, [place] [address] [place] [id number] [place] [address] 84[address]- [address] Jul, Medicare annual wellness visit, initial Z00.00 [...] and Encounter for immunization Z23 [facility] [place] [id number] [place] [phone] Jul, Localized swelling of both lower legs R22.43 ; Essential hypertension I10 ; Chronic diastolic CHF (congestive heart failure) I50.32 ; BMI 40.0-44.9, adult Z68.41 and CKD (chronic kidney disease) stage 2, GFR 60-89 ml/min N18.[address] [address] Jul, [address] [address] Jun, [address] [address] Jun, Elevated serum creatinine R79.[address] [address] May, Elevated serum creatinine R79.89 [place] [id number] [place] [address] 0[address] Apr, Chronic congestive heart failure, unspecified congestive heart failure type I50.9 ; Essential hypertension I10 ; Type 2 diabetes mellitus without complication, without long-term current use of insulin E11.9 ; Arthritis M19.90 ; Depression, reactive F32.9 ; Screening for lipid disorders Z13.220 ; Screening for breast cancer Z12.31 and BMI 40.0-44.9, adult Z68.41 [facility] [address] [place] [id number] [place] [id number] Feb, Dental examination Z01.20 [facility] [address] [place] [id number] [place] [id number] Nov, Dental examination Z01.[address] [address] Oct, [facility] [address] [id number] Apr, IMMUNIZATIONS Vaccine Route Administration Date Status TDAP (BOOSTRIX) IM Intramuscular August 02, 2017 Administered PCV 13 IM Intramuscular August 02, 2017 Administered SOCIAL HISTORY Never Assessed REASON FOR VISIT Medicare AW - Initial Visit--Yael PLAN OF CARE Activity Details Follow Up 1 Year with Mites[facility] for MAWV, sooner for CHM Reason: VITAL SIGNS Height 65.75 in 2017-08-02 Weight 259.2 lbs 2017-08-02 Temperature 99.1 degrees Fahrenheit 2017-08-02 Heart Rate 84 bpm 2017-08-02 Respiratory Rate 20 2017-08-02 BMI 42.15 kg/m2 2017-08-02 Blood pressure systolic 128 mmHg 2017-08-02 Blood pressure diastolic 70 mmHg 2017-08-02 MEDICATIONS Medication Instructions Dosage Frequency Start Date End Date Duration Status Flunisolide 25 MCG/ACT (0.025%) Nasally Twice a day 2 sprays in each nostril 12h Active Carvedilol 25 MG Orally 2 times a day 2 tablets 12h Active Glucosamine Chondr 1500 Complx - Orally 2 times a day 1 capsule 12h Active Metformin HCl 500 mg Orally Twice a day 2 tablets 12h Active Super B-Complex - Orally Once a day 1 capsule 24h Active Co Q-10 200 MG Orally Once a day 1 capsule with a meal 24h Active Glimepiride 4 MG Orally twice a day 1 tablet 12h Active Lisinopril 5 MG Orally Once a day 1 tablet 24h Active Aspir-81 81 MG Orally Once a day 1 tablet 24h Active Vitamin D-3 1000 UNIT Orally Once a day 1 capsule 24h Active Simvastatin 40 MG Orally Once a day 1 tablet 24h Active Tylenol 8 Hour Arthritis Pain 650 MG Orally 2 times a day 2 tablets as needed 12h Active Ranitidine HCl 150 MG Orally twice a day 1 tablet 12h Active Multivitamins - Orally Once a day 1 capsule 24h Active Furosemide 40 mg Orally Once a day 1 tablet 24h Active Claritin 10 MG Orally Once a day 1 tablet 24h Active RESULTS No Results PROCEDURES Procedure Date Ordered Result Body Site [facility] IPPE/AWV August 02, 2017 ANNUAL ELIZABETH VST; JAMEY PPS INIT August 02, 2017 IMMUNIZATION ADMIN, EACH ADD (please include units) August 02, 2017 SINGLE IMMUNIZATION ADMIN August 02, 2017 PT TOBACCO SCREEN RCVD TLK August 02, 2017 FALL RISK ASSESSMENT DOCD August 02, 2017 PCV 13 August 02, 2017 TDAP (BOOSTRIX) August 02, 2017 INSTRUCTIONS MEDICATIONS ADMINISTERED No Known Medications [...]
--- OUTSIDE RECORDS SUMMARY | 2018-01-01 17:34 | XMS REPORT ---
Author Author KRISTAL NICHOLSON Organization [facility] Address [address] [place] [address] Care Team Providers Care Aspnet Developer Name Role Phone KRISTAL NICHOLSON Unavailable PROBLEMS Type Condition ICD9-CM Code JHD69-HE Code Onset Dates Condition Status SNOMED Code Problem Type 2 diabetes mellitus without complication, without long-term current use of insulin E11.9 Active 885414304 Problem BMI 40.0-44.9, adult Z68.41 Active 773720199 Problem Reactive depression F32.9 Active 68758551 Problem Chronic diastolic CHF (congestive heart failure) I50.32 Active 782192850 Problem Status post left mastectomy Z90.12 Active 911678423 Problem Malignant neoplasm of left female breast, unspecified estrogen receptor status, unspecified site of breast C50.912 Active 467564504 Problem Chronic kidney disease (CKD) stage G3b/A1, moderately decreased glomerular filtration rate (GFR) between 30-44 mL/min/1.73 square meter and albuminuria creatinine ratio less than 30 mg/g N18.3 Active 641351500 Problem Fibromyalgia M79.7 Active 610298733 Problem Essential hypertension I10 Active 77020261 Problem Arthritis M19.90 Active 9154561 Problem CKD (chronic kidney disease) stage 2, GFR 60-89 ml/min N18.2 Active 599976503 Problem Depression, reactive F32.9 Active 42750775 ALLERGIES No Information ENCOUNTERS Encounter Location Date Diagnosis [facility] [address] [facility] [id number], [place] [address] Jan, [facility] [address] [place] [address] Oct, Acute cystitis without hematuria N30.00 and Left foot pain M79.672 [facility] [address] [place] [id number] [place] [address] Oct, [place] [address] [place] [address] 14[address]- [address] Oct, Chronic kidney disease (CKD) stage G3b/A1, moderately decreased glomerular filtration rate (GFR) between 30-44 mL/min/1.73 square meter and albuminuria creatinine ratio less than 30 mg/g N18.3 and BMI 40.0-44.9 , adult Z68.41 [place] [address] [address] Oct, Chronic kidney disease (CKD) stage G3b/A1, moderately decreased glomerular filtration rate (GFR) between 30-44 mL/min/1.73 square meter and albuminuria creatinine ratio less than 30 mg/g N18.3 [place] [address] [place] [id number] [place] [address] 78323- [address] 20 Sep, 2017 Type 2 diabetes mellitus without complication, without long- term current use of insulin E11.9 [place] [id number] [place] [address] 28136- 5165 Sep, Left foot pain M79.672 ; Bilateral edema of lower extremity R60.0 ; Chronic diastolic CHF (congestive heart failure) I50.32 and Chronic kidney disease (CKD) stage G3b/A1, moderately decreased glomerular filtration rate (GFR) between 30-44 mL/min/1.73 square meter and albuminuria creatinine ratio less than 30 mg/g N18.3 [place] [address] [place] [id number] [place] [address] 55528- [address] 05 Sep, 2017 Side effect of medication T88.7XXA ; Peripheral edema R60.9 and Chronic kidney disease (CKD) stage G3b/A1, moderately decreased glomerular filtration rate (GFR) between 30-44 mL/min/1.73 square meter and albuminuria creatinine ratio less than 30 mg/g N18.3 [place] [address] [place] [id number] [place] [address]- [address] Sep, [place] [address] [place] [id number] [place] [address] 27394- [address] August, CKD (chronic kidney disease) stage 2, GFR 60-89 ml/min N18.2 [place] [address] [place] [address] 27274- 4816 August, Chronic diastolic CHF (congestive heart failure) I50.32 ; CKD (chronic kidney disease) stage 2, GFR 60-89 ml/min N18.2 ; BMI 40.0-44.9, adult Z68.41 and Fibromyalgia M79.7 [place] [address] [place] [id number] [place] [address] 40[address]- [address] August, [place] [address] [place] [id number] [place] [address] 36176- 9544 August, [place] [address] [place] [id number] [place] [address] 68136- [address] Jul, Medicare annual wellness visit, initial Z00.00 [...] ml/min N18.2 and Encounter for immunization Z23 [place] [address] [place] [id number] [place] [address] 00269- 74[address] Jul, Localized swelling of both lower legs R22.43 ; Essential hypertension I10 ; Chronic diastolic CHF (congestive heart failure) I50.32 ; BMI 40.0-44.9, adult Z68.41 and CKD (chronic kidney disease) stage 2, GFR 60-89 ml/min N18.2 [place] [address] [place] [id number] [place] [address] 77164- 36[address] Jul, [place] [address] [place] [id number] [place] [address] 92869- [address]24 Jun, [place] [address] [place] [id number] [place] [address] 48214- 5851 Jun, Elevated serum creatinine R79.89 [facility] [address] [id number] [address] May, Elevated serum creatinine R79.89 [place] [address] [place] [address] 2546 Apr, Chronic congestive heart failure, unspecified congestive heart failure type I50.9 ; Essential hypertension I10 ; Type 2 diabetes mellitus without complication, without long-term current use of insulin E11.9 ; Arthritis M19.90 ; Depression, reactive F32.9 ; Screening for lipid disorders Z13.220 ; Screening for breast cancer Z12.31 and BMI 40.0-44.9, adult Z68.41 [facility] [address] [place] [phone] Feb, Dental examination Z01.20 [facility] [address] [place] [id number] [place] [address] [phone] Nov, Dental examination Z01.[address] [place] [address] 75773- 2546 Oct, [facility] [address] [place] [id number] [place] [address] [phone] Apr, IMMUNIZATIONS No Known Immunizations SOCIAL HISTORY Never Assessed REASON FOR VISIT refill PLAN OF CARE VITAL SIGNS MEDICATIONS Medication [...]
--- OUTSIDE RECORDS SUMMARY | 2018-01-01 17:34 | XMS REPORT ---
Author Author KRISTAL NICHOLSON Organization [facility] Address [address] [place] [address] Care Team Providers Care Combat Systems Engineer Name Role Phone KRISTAL NICHOLSON Unavailable PROBLEMS Type Condition ICD9-CM Code SJQ57-XT Code Onset Dates Condition Status SNOMED Code Problem Type 2 diabetes mellitus without complication, without long-term current use of insulin E11.9 Active 542367148 Problem BMI 40.0-44.9, adult Z68.41 Active 365602458 Problem Reactive depression F32.9 Active 53794995 Problem Chronic diastolic CHF (congestive heart failure) I50.32 Active 080822564 Problem Status post left mastectomy Z90.12 Active 344435198 Problem Malignant neoplasm of left female breast, unspecified estrogen receptor status, unspecified site of breast C50.912 Active 359194384 Problem Chronic kidney disease (CKD) stage G3b/A1, moderately decreased glomerular filtration rate (GFR) between 30-44 mL/min/1.73 square meter and albuminuria creatinine ratio less than 30 mg/g N18.3 Active 712486888 Problem Fibromyalgia M79.7 Active 117487093 Problem Essential hypertension I10 Active 00087002 Problem Arthritis M19.90 Active 5366661 Problem CKD (chronic kidney disease) stage 2, GFR 60-89 ml/min N18.2 Active 583757347 Problem Depression, reactive F32.9 Active 14834757 ALLERGIES No Information ENCOUNTERS Encounter Location Date Diagnosis [facility] [address] [address] Sep, Type 2 diabetes mellitus without complication, without long- term current use of insulin E11.9 [facility] [address] [address] Sep, Left foot pain M79.672 [facility] [address] [place] [address] 01044- 4[address] 05 Sep, 2017 Side effect of medication T88.7XXA ; Peripheral edema R60.9 and Chronic kidney disease (CKD) stage G3b/A1, moderately decreased glomerular filtration rate (GFR) between 30-44 mL/min/1.73 square meter and albuminuria creatinine ratio less than 30 mg/g N18.3 [place] [address] [place] [id number] [place] [address] 72441- 6847 04 Sep, 2017 [place] [address] [place] [id number] [place] [address] 97306- 4504 August, CKD (chronic kidney disease) stage 2, GFR 60-89 ml/min N18.[address] [address]- [address] August, Chronic diastolic CHF (congestive heart failure) I50.32 ; CKD (chronic kidney disease) stage 2, GFR 60-89 ml/min N18.2 ; BMI 40.0-44.9, adult Z68.41 and Fibromyalgia M79.7 [place] [address] [place] [id number] [place] [address] 81988- 50[address] August, [place] [address] [address]- [address] August, [place] [address] [place] [id number] [place] [address] 28251- 0[address] Jul, Medicare annual wellness visit, initial Z00.00 [...] ml/min N18.2 and Encounter for immunization Z23 [place] [address] [place] [address] 87091- 3570 Jul, Localized swelling of both lower legs R22.43 ; Essential hypertension I10 ; Chronic diastolic CHF (congestive heart failure) I50.32 ; BMI 40.0-44.9, adult Z68.41 and CKD (chronic kidney disease) stage 2, GFR 60-89 ml/min N18.2 [place] [address] [place] [id number] [place] [address] 62235- 6756 Jul, [place] [address] [place] [id number] [place] [address] 70452- 6700 Jun, [place] [address] [place] [id number] [place] [address] 37828- 5421 Jun, Elevated serum creatinine R79.[address] 12[address]- [address] May, Elevated serum creatinine R79.89 [place] [address] [place] [id number] [place] [address] 47222- 0923 Apr, Chronic congestive heart failure, unspecified congestive heart failure type I50.9 ; Essential hypertension I10 ; Type 2 diabetes mellitus without complication, without long-term current use of insulin E11.9 ; Arthritis M19.90 ; Depression, reactive F32.9 ; Screening for lipid disorders Z13.220 ; Screening for breast cancer Z12.31 and BMI 40.0-44.9, adult Z68.41 [facility] [address] [id number] [place] [address] [phone] Feb, Dental examination Z01.20 [facility] [address] [id number] Nov, Dental examination Z01.20 [place] [address] [place] [address] 38987- 2546 Oct, [facility] [address] [id number] Apr, IMMUNIZATIONS No Known Immunizations SOCIAL HISTORY Never Assessed REASON FOR VISIT deferred lab PLAN OF CARE VITAL SIGNS MEDICATIONS Medication Instructions Dosage Frequency Start Date End Date Duration Status Claritin 10 MG Orally Once a day 1 tablet 24h Unknown Glucosamine Chondr 1500 Complx - Orally 2 times a day 1 capsule 12h Unknown Simvastatin 40 MG Orally Once a day 1 tablet 24h Unknown Glimepiride 4 MG Orally twice a day 1 tablet 12h Unknown Ranitidine HCl 150 MG Orally twice a day 1 tablet 12h Unknown Vitamin D-3 1000 UNIT Orally Once a day 2 capsule 24h Unknown Lisinopril 5 MG Orally Once a day 1 tablet 24h Unknown Tylenol 8 Hour Arthritis Pain 650 MG Orally 2 times a day 2 tablets as needed 12h Unknown Metformin HCl 500 mg Orally Twice a day 2 tablets 12h Unknown Flunisolide 25 MCG/ACT (0.025%) Nasally Twice a day 2 sprays in each nostril 12h Unknown Aspir-81 81 MG Orally Once a day 1 tablet 24h Unknown Co Q-10 200 MG Orally Once a day 1 capsule with a meal 24h Unknown Furosemide 40 mg Orally Once a day 1 tablet 24h Active Super B-Complex - Unknown Carvedilol 25 MG Orally 2 times a day 2 tablets 12h Unknown RESULTS No Results PROCEDURES No Known procedures [...] History R. Ankle/ due to broken bones Hospitalization History Congestive Heart Failure 2009 Hospitalization History past surgery
--- OUTSIDE RECORDS SUMMARY | 2018-01-01 17:34 | XMS REPORT ---
Author Author KRISTAL NICHOLSON [facility] Address [address] [place] [address] Care Team Providers Care Security System Installer Name Role Phone KRISTAL NICHOLSON Unavailable PROBLEMS Type Condition ICD9-CM Code SFO29-HU Code Onset Dates Condition Status SNOMED Code Problem Type 2 diabetes mellitus without complication, without long-term current use of insulin E11.9 Active 367513795 Problem BMI 40.0-44.9, adult Z68.41 Active 338202306 Problem Reactive depression F32.9 Active 16828074 Problem Chronic diastolic CHF (congestive heart failure) I50.32 Active 375430326 Problem Status post left mastectomy Z90.12 Active 075089886 Problem Malignant neoplasm of left female breast, unspecified estrogen receptor status, unspecified site of breast C50.912 Active 706828269 Problem Chronic kidney disease (CKD) stage G3b/A1, moderately decreased glomerular filtration rate (GFR) between 30-44 mL/min/1.73 square meter and albuminuria creatinine ratio less than 30 mg/g N18.3 Active 108577236 Problem Fibromyalgia M79.7 Active 396680249 Problem Essential hypertension I10 Active 82875766 Problem Arthritis M19.90 Active 7419604 Problem CKD (chronic kidney disease) stage 2, GFR 60-89 ml/min N18.2 Active 374102624 Problem Depression, reactive F32.9 Active 36147847 ALLERGIES No Information ENCOUNTERS Encounter Location Date Diagnosis [facility] [address] [facility] [id number] [address] Jan, [facility] [address] [address] Oct, [facility] [address] [facility] [id number], [place] [address] Oct, Chronic kidney disease (CKD) stage G3b/A1, moderately decreased glomerular filtration rate (GFR) between 30-44 mL/min/1.73 square meter and albuminuria creatinine ratio less than 30 mg/g N18.3 and BMI 40.0-44.9 , adult Z68.41 [place] [address] [place] [id number] [place] [address] Oct, Chronic kidney disease (CKD) stage G3b/A1, moderately decreased glomerular filtration rate (GFR) between 30-44 mL/min/1.73 square meter and albuminuria creatinine ratio less than 30 mg/g N18.3 [place] [id number] [place] [address] Sep, Type 2 diabetes mellitus without complication, without long- term current use of insulin E11.9 [place] [address] [address] Sep, Left foot pain M79.[address] [address] 05 Sep, 2017 Side effect of medication T88.7XXA ; Peripheral edema R60.9 and Chronic kidney disease (CKD) stage G3b/A1, moderately decreased glomerular filtration rate (GFR) between 30-44 mL/min/1.73 square meter and albuminuria creatinine ratio less than 30 mg/g N18.3 [place] [id number] [place] [address] Sep, [place] [address] [address] August, CKD (chronic kidney disease) stage 2, GFR 60-89 ml/min N18.2 [place] [address] [address] August, Chronic diastolic CHF (congestive heart failure) I50.32 ; CKD (chronic kidney disease) stage 2, GFR 60-89 ml/min N18.2 ; BMI 40.0-44.9, adult Z68.41 and Fibromyalgia M79.[address] [address] August, [place] [address] [place] [address]- [address] August, [place] [address] [id number] [place] [address]- [address] Jul, Medicare annual wellness visit, initial Z00.00 [...] ml/min N18.2 and Encounter for immunization Z23 [place] [address] [id number] [place] [address]- [address]199 Jul, Localized swelling of both lower legs R22.43 ; Essential hypertension I10 ; Chronic diastolic CHF (congestive heart failure) I50.32 ; BMI 40.0-44.9, adult Z68.41 and CKD (chronic kidney disease) stage 2, GFR 60-89 ml/min N18.2 [place] [address] [place] [address] 74[address]- 4[address] Jul, [place] [address] [place] [address] [id number] [place] [address] 58381- 4[address] Jun, [place] [address] [place] [address]39- 77[address] Jun, Elevated serum creatinine R79.89 [place] [address] [place] [address] 25255- [address] May, Elevated serum creatinine R79.89 [place] [address] [place] [address] [id number] [place] [address]37- 1369 Apr, Chronic congestive heart failure, unspecified congestive heart failure type I50.9 ; Essential hypertension I10 ; Type 2 diabetes mellitus without complication, without long-term current use of insulin E11.9 ; Arthritis M19.90 ; Depression, reactive F32.9 ; Screening for lipid disorders Z13.220 ; Screening for breast cancer Z12.31 and BMI 40.0-44.9, adult Z68.41 [facility] [address] [id number] Feb, Dental examination Z01.20 [facility] [address] [id number] Nov, Dental examination Z01.20 [facility] [id number], [place] [address] Oct, [facility] [address] [id number] Apr, IMMUNIZATIONS No Known Immunizations SOCIAL HISTORY Never Assessed REASON FOR VISIT Returned call PLAN OF CARE VITAL SIGNS MEDICATIONS [...]
--- OUTSIDE RECORDS SUMMARY | 2018-01-01 17:34 | XMS REPORT ---
Author Author KRISTAL NICHOLSON [facility] Address [address] [place] [address] Care Team Providers Care Executive Marketing Assistant Name Role Phone KRISTAL NICHOLSON Unavailable PROBLEMS Type Condition ICD9-CM Code ATR13-DE Code Onset Dates Condition Status SNOMED Code Problem Type 2 diabetes mellitus without complication, without long-term current use of insulin E11.9 Active 214994928 Problem BMI 40.0-44.9, adult Z68.41 Active 807215275 Problem Reactive depression F32.9 Active 64800389 Problem Chronic diastolic CHF (congestive heart failure) I50.32 Active 981924928 Problem Status post left mastectomy Z90.12 Active 271925654 Problem Malignant neoplasm of left female breast, unspecified estrogen receptor status, unspecified site of breast C50.912 Active 031274625 Problem Chronic kidney disease (CKD) stage G3b/A1, moderately decreased glomerular filtration rate (GFR) between 30-44 mL/min/1.73 square meter and albuminuria creatinine ratio less than 30 mg/g N18.3 Active 194339213 Problem Fibromyalgia M79.7 Active 775854168 Problem Essential hypertension I10 Active 78014532 Problem Arthritis M19.90 Active 4765713 Problem CKD (chronic kidney disease) stage 2, GFR 60-89 ml/min N18.2 Active 465424469 Problem Depression, reactive F32.9 Active 14505826 ALLERGIES No Information ENCOUNTERS Encounter Location Date Diagnosis [facility] [address] [facility] [id number] [address] Jan, [facility] [address] [address] Oct, [facility] [address] [facility] [id number] [address] Oct, Chronic kidney disease (CKD) stage G3b/A1, moderately decreased glomerular filtration rate (GFR) between 30-44 mL/min/1.73 square meter and albuminuria creatinine ratio less than 30 mg/g N18.3 and BMI 40.0-44.9 , adult Z68.41 [place] [address] [place] [address] [id number] [place] [address] Oct, Chronic kidney disease (CKD) stage G3b/A1, moderately decreased glomerular filtration rate (GFR) between 30-44 mL/min/1.73 square meter and albuminuria creatinine ratio less than 30 mg/g N18.3 [place] [address] [address] [id number] [place] [address]- [address] Sep, Type 2 diabetes mellitus without complication, without long- term current use of insulin E11.9 [place] [address] [address] Sep, Left foot pain M79.[address] [address] 05 Sep, 2017 Side effect of medication T88.7XXA ; Peripheral edema R60.9 and Chronic kidney disease (CKD) stage G3b/A1, moderately decreased glomerular filtration rate (GFR) between 30-44 mL/min/1.73 square meter and albuminuria creatinine ratio less than 30 mg/g N18.3 [place] [address] [id number] [place] [address]- [address] Sep, [place] [address] [address] August, CKD (chronic kidney disease) stage 2, GFR 60-89 ml/min N18.2 [place] [address] [address] August, Chronic diastolic CHF (congestive heart failure) I50.32 ; CKD (chronic kidney disease) stage 2, GFR 60-89 ml/min N18.2 ; BMI 40.0-44.9, adult Z68.41 and Fibromyalgia M79.[address] [address] August, [place] [address] [place] [address] August, [place] [id number] [place] [address]- [address] Jul, Medicare annual wellness visit, initial Z00.00 [...] ml/min N18.2 and Encounter for immunization Z23 [place] [id number] [place] [address]- 6[address] Jul, Localized swelling of both lower legs R22.43 ; Essential hypertension I10 ; Chronic diastolic CHF (congestive heart failure) I50.32 ; BMI 40.0-44.9, adult Z68.41 and CKD (chronic kidney disease) stage 2, GFR 60-89 ml/min N18.2 [place] [address] [place] [address]- 91[address] Jul, [place] [address] [id number] [place] [address]57- 32[address] Jun, [place] [address] [place] [address] 20059- 47[address] Jun, Elevated serum creatinine R79.89 [place] [address] [place] [address] 96122- 9[address] May, Elevated serum creatinine R79.89 [place] [address] [id number] [place] [address]3628- [address] Apr, Chronic congestive heart failure, unspecified congestive heart failure type I50.9 ; Essential hypertension I10 ; Type 2 diabetes mellitus without complication, without long-term current use of insulin E11.9 ; Arthritis M19.90 ; Depression, reactive F32.9 ; Screening for lipid disorders Z13.220 ; Screening for breast cancer Z12.31 and BMI 40.0-44.9, adult Z68.41 [facility] [address] [id number] Feb, Dental examination Z01.20 [facility] [address] [id number] Nov, Dental examination Z01.20 [facility] [address] [id number] [address] Oct, [facility] [address] [id number] Apr, IMMUNIZATIONS No Known Immunizations SOCIAL HISTORY Never Assessed REASON FOR VISIT Lab (walk-in) PLAN OF CARE VITAL SIGNS MEDICATIONS Unknown Medications RESULTS No Results PROCEDURES Procedure Date Ordered Result Body Site LAB NOT BILLED BY [facility] June 16, 2017 NEELAM, ROUTINE* June 16, 2017 INSTRUCTIONS MEDICATIONS ADMINISTERED No Known [...]
--- OUTSIDE RECORDS SUMMARY | 2018-01-01 17:34 | XMS REPORT ---
Author Author KRISTAL NICHOLSON Organization [facility] Address [address] [place] [address] Care Team Providers Care Geopolitics Teacher Name Role Phone KRISTAL NICHOLSON Unavailable PROBLEMS Type Condition ICD9-CM Code USM27-PT Code Onset Dates Condition Status SNOMED Code Problem Type 2 diabetes mellitus without complication, without long-term current use of insulin E11.9 Active 363122914 Problem BMI 40.0-44.9, adult Z68.41 Active 598091852 Problem Reactive depression F32.9 Active 18086386 Problem Chronic diastolic CHF (congestive heart failure) I50.32 Active 266178930 Problem Status post left mastectomy Z90.12 Active 992073143 Problem Malignant neoplasm of left female breast, unspecified estrogen receptor status, unspecified site of breast C50.912 Active 056771892 Problem Chronic kidney disease (CKD) stage G3b/A1, moderately decreased glomerular filtration rate (GFR) between 30-44 mL/min/1.73 square meter and albuminuria creatinine ratio less than 30 mg/g N18.3 Active 516446159 Problem Fibromyalgia M79.7 Active 153361704 Problem Essential hypertension I10 Active 77123784 Problem Arthritis M19.90 Active 2399839 Problem CKD (chronic kidney disease) stage 2, GFR 60-89 ml/min N18.2 Active 792559039 Problem Depression, reactive F32.9 Active 33094133 ALLERGIES No Information ENCOUNTERS Encounter Location Date Diagnosis [facility] [id number] [address] Jan, [facility] [id number] [place] [address]- [address] Nov, 2018 Fibromyalgia M79.7 ; Pain of left foot M79.672 and Pain in right foot M79.671 [facility] [address] [place] [address]20- [address] Oct, Acute cystitis without hematuria N30.00 and Left foot pain M79.672 [place] [address] [place] [id number] [place] [address] 01110- 7916 Oct, [place] [address] [place] [address] [id number] [place] [address] 36838- 0[address] Oct, Chronic kidney disease (CKD) stage G3b/A1, moderately decreased glomerular filtration rate (GFR) between 30-44 mL/min/1.73 square meter and albuminuria creatinine ratio less than 30 mg/g N18.3 and BMI 40.0-44.9 , adult Z68.41 [place] [address] [place] [address] [id number] [place] [address] 8[address]31- [address] Oct, Chronic kidney disease (CKD) stage G3b/A1, moderately decreased glomerular filtration rate (GFR) between 30-44 mL/min/1.73 square meter and albuminuria creatinine ratio less than 30 mg/g N18.3 [place] [address] [place] [address] [id number] [place] [address]76- 5149 Sep, Type 2 diabetes mellitus without complication, without long- term current use of insulin E11.9 [facility] [place] [address] [place] [address] [id number] [place] [address] 34126- 7111 Sep, Left foot pain M79.672 ; Bilateral edema of lower extremity R60.0 ; Chronic diastolic CHF (congestive heart failure) I50.32 and Chronic kidney disease (CKD) stage G3b/A1, moderately decreased glomerular filtration rate (GFR) between 30-44 mL/min/1.73 square meter and albuminuria creatinine ratio less than 30 mg/g N18.3 [place] [address] [address] Sep, Side effect of medication T88.7XXA ; Peripheral edema R60.9 and Chronic kidney disease (CKD) stage G3b/A1, moderately decreased glomerular filtration rate (GFR) between 30-44 mL/min/1.73 square meter and albuminuria creatinine ratio less than 30 mg/g N18.3 [place] [address] [place] [address] [id number] [address] Sep, [place] [address] [place] [address] [id number] [place] [address]75- [address] August, CKD (chronic kidney disease) stage 2, GFR 60-89 ml/min N18.2 [place] [address] [place] [address] [id number] [place] [address] 17317- 1779 August, Chronic diastolic CHF (congestive heart failure) I50.32 ; CKD (chronic kidney disease) stage 2, GFR 60-89 ml/min N18.2 ; BMI 40.0-44.9, adult Z68.41 and Fibromyalgia M79.[address] [address]- [address] August, [place] [address] [address] [id number] [place] [address] 50898- 47[address] August, [place] [id number] [place] [address] 47550- [address] Jul, Medicare annual wellness visit, initial Z00.00 [...] ml/min N18.2 and Encounter for immunization Z23 [place] [address] [place] [address] 22898- 5142 Jul, Localized swelling of both lower legs R22.43 ; Essential hypertension I10 ; Chronic diastolic CHF (congestive heart failure) I50.32 ; BMI 40.0-44.9, adult Z68.41 and CKD (chronic kidney disease) stage 2, GFR 60-89 ml/min N18.2 [place] [id number] [place] [address] 6[address]- 8550 Jul, [place] [address] [place] [address] Jun, [facility] [address] [place] [address] 89282- 1896 Jun, Elevated serum creatinine R79.89 [place] [address] [place] [address] 22429- 2546 May, Elevated serum creatinine R79.89 [place] [address] [id number] [place] [address] 2546 Apr, Chronic congestive heart failure, unspecified congestive heart failure type I50.9 ; Essential hypertension I10 ; Type 2 diabetes mellitus without complication, without long-term current use of insulin E11.9 ; Arthritis M19.90 ; Depression, reactive F32.9 ; Screening for lipid disorders Z13.220 ; Screening for breast cancer Z12.31 and BMI 40.0-44.9, adult Z68.41 [facility] [id number] [place] [phone] Feb, Dental examination Z01.20 [facility] [id number] [place] [phone] Nov, Dental examination Z01.20 [place] [address] [place] [address] 80032- 25[address] Oct, [facility] [id number] [place] [phone] Apr, IMMUNIZATIONS No Known Immunizations SOCIAL HISTORY Never Assessed REASON FOR VISIT requesting return call PLAN OF CARE VITAL SIGNS MEDICATIONS Medication Instructions Dosage Frequency Start Date End Date Duration Status Simvastatin 40 mg Orally Once a day 1 tablet 24h Active Glimepiride 4 MG Orally twice a day 1 tablet 12h Active Furosemide 40 mg Orally Once a day 1 tablet 24h Active Metformin HCl 500 mg Orally Twice a day 2 tablets 12h Active Lisinopril 5 mg Orally Once a day 1 tablet 24h Active Carvedilol 25 MG Orally 2 times a day 2 tablets 12h Active Meloxicam 7.5 MG Orally Once a day 1 tablet 24h August, Nov, 30 day(s) Active Ranitidine HCl 150 MG [...]
--- NOTE | 2018-01-01 17:51 | ED Upper Extremity ---
General Chief Complaint: Upper Extremity Stated Complaint: R HAND SWELLING Nursing Triage Note: ARRIVED VIA WC TO ROOM 10. COMPLAINS OF SWELLING AND FINGERS THAT HAS RADIATED INTO HAND STARTING YESTERDAY. Nursing Sepsis Screen: No Definite Risk Source: patient Exam Limitations: no limitations History of Present Illness Date Seen by Provider: Jan 01, 2018 Time Seen by Provider: 17:48 Initial Comments To ER with reports of sudden onset of right hand swelling and pain. This began yesterday and was in the right finger. Today the swelling has progressed to affect the entire hand and all of the fingers and extends up just past the wrist. She had a similar presentation about a month ago treated at [facility] with Toradol and steroids for suspected gout. This did improve her symptoms. She denies fevers chills or known injury. Onset: yesterday Severity: moderate Pain/Injury Location: right hand, right 2nd finger, right 3rd finger, right 4th finger, right 5th finger Method of Injury: unknown Modifying Factors: Worse With Movement Allergies and Home Medications Allergies Coded Allergies: Penicillins (Verified Allergy, Severe, ANAPHYLAXIS, HIVES, 05/12/16) pregabalin (Verified Allergy, Unknown, 10/05/17) Home Medications Acetaminophen 650 Mg Tablet.er, 1,300 MG PO BID, (Reported) Aspirin 81 Mg Tab.chew, 81 MG PO DAILY, (Reported) Carvedilol 25 Mg Tablet, 50 MG PO BID, (Reported) Cholecalciferol (Vitamin D3) 2,000 Unit Capsule, 2,000 UNIT PO DAILY, (Reported) Fluticasone Propionate 9.9 Ml [place].susp, 2 SPRAYS NS DAILY, (Reported) Furosemide 40 Mg Tablet, 40 MG PO DAILY, (Reported) Glimepiride 4 Mg Tablet, 4 MG PO BID, (Reported) Glucosa Edge 2Kcl/Chondroitin Edge 1 Each Capsule, 1 EACH PO BID, (Reported) Lisinopril 5 Mg Tablet, 5 MG PO DAILY, (Reported) Loratadine 10 Mg Tablet, 10 MG PO DAILY, (Reported) Multivitamin 1 Each Tablet, 1 EACH PO DAILY, (Reported) Ranitidine HCl 150 Mg Tablet, 150 MG PO BID, (Reported) Simvastatin 40 Mg Tablet, 40 MG PO HS, (Reported) Ubidecarenone 200 Mg Capsule, 200 MG PO DAILY, (Reported) Vitamin B Complex 1 Each Capsule, 1 EACH PO DAILY, (Reported) Patient Home Medication List Home Medication List Reviewed: Yes Review of Systems Constitutional: see HPI; No chills, No fever EENTM: see HPI Respiratory: no symptoms reported Cardiovascular: no symptoms reported Genitourinary: no symptoms reported Musculoskeletal: see HPI Skin: no symptoms reported Psychiatric/Neurological: No Symptoms Reported Past Wxqmhzk-Nnrwoj-Mkpwtw Hx Patient Social History Alcohol Use: Denies Use Recreational Drug Use: No Smoking Status: Never a Smoker Recent Foreign Travel: No Contact w/Someone Who Travel: No Recent Infectious Disease Expo: No Recent Hopitalizations: No Immunizations Up To Date Date of Pneumonia Vaccine: Aug 05, 2017 Date of Influenza Vaccine: Apr 12, 2016 Seasonal Allergies Seasonal Allergies: Yes Past Medical History Surgeries: Yes (RIGHT ANKLE FX, L MASTECTOMY, LAP THORACOTOMY, THORACOTOMY FOR EMPYEMA) Respiratory: No Cardiac: Yes (CHF) Chronic Edema/Swelling, High Cholesterol, Hypertension Neurological: No Reproductive Disorders: No Female Reproductive Disorders: Denies Sexually Transmitted Disease: No HIV/AIDS: No Gastrointestinal: Yes Gastroesophageal Reflux, Polyps Musculoskeletal: Yes (OSTEOARTHRITIS LEFT KNEE, SHOULDER PAIN) Degenerate Disk Disease, Arthritis, Chronic Back Pain Endocrine: Yes Diabetes, Non-Insulin dep Loss of Vision: Bilateral Hearing Impairment: Denies Cancer: Yes Breast Psychosocial: No Integumentary: No Blood Disorders: No Adverse Reaction/Blood Tranf: No (HAS HAD BLOOD WITH NO PROBLEMS) Physical Exam Vital Signs Vital Signs - First Documented 01/01/18 17:30 Temp 98.0 Pulse 86 Resp 16 B/P (MAP) 137/87 (104) Pulse Ox 99 O2 Delivery Room Air Capillary Refill : Less Than 3 Seconds Height, Weight, BMI Height: 5'4.00" Weight: 180lbs. 0.0oz. 81.684758an; 40.4 BMI Method:Stated General Appearance: WD/WN, no apparent distress HEENT: PERRL/EOMI, normal ENT inspection Neck: non-tender, full range of motion Respiratory: normal breath sounds, no respiratory distress, no accessory muscle use Gastrointestinal: normal bowel sounds, non tender, soft Hand: limited ROM, soft tissue tenderness, stiffness (there is some erythema over the DIP and PIP joint right fifth finger. There is swelling diffusely to the right hand affecting all fingers excluding the thumb that extends proximally just past the wrist. No puncture wounds or lacerations are visualized ), swelling Neurologic/Psychiatric: alert, normal mood/affect, oriented x 3 Skin: normal color, warm/dry Progress/Results/Core Measures Results/Orders Lab Results Laboratory Tests Test 01/01/18 18:03 Range/Units White Blood Count 10.6 4.3-11.0 10^3/uL Red Blood Count 3.11 L 4.35-5.85 10^6/uL Hemoglobin 8.4 L 11.5-16.0 G/DL Hematocrit 26 L 35-52 % Mean Corpuscular Volume 84 80-99 FL Mean Corpuscular Hemoglobin 27 25-34 PG Mean Corpuscular Hemoglobin Concent 32 32-36 G/DL Red Cell Distribution Width 15.5 H 10.0-14.5 % Platelet Count 613 H 130-400 10^3/uL Mean Platelet Volume 8.7 7.4-10.4 FL Neutrophils (%) (Auto) 78 H 42-75 % Lymphocytes (%) (Auto) 13 12-44 % Monocytes (%) (Auto) 7 0-12 % Eosinophils (%) (Auto) 1 0-10 % Basophils (%) (Auto) 0 0-10 % Neutrophils # (Auto) 8.3 H 1.8-7.8 X 10^3 Lymphocytes # (Auto) 1.4 1.0-4.0 X 10^3 Monocytes # (Auto) 0.8 0.0-1.0 X 10^3 Eosinophils # (Auto) 0.1 0.0-0.3 10^3/uL Basophils # (Auto) 0.0 0.0-0.1 10^3/uL Sodium Level 136 135-145 MMOL/L Potassium Level 3.1 L 3.6-5.0 MMOL/L Chloride Level 99 98-107 MMOL/L Carbon Dioxide Level 22 21-32 MMOL/L Anion Gap 15 H 5-14 MMOL/L Blood Urea Nitrogen 13 7-18 MG/DL Creatinine 1.18 0.60-1.30 MG/DL Estimat Glomerular Filtration Rate 46 BUN/Creatinine Ratio 11 Glucose Level 129 H 70-105 MG/DL Calcium Level 9.7 8.5-10.1 MG/DL Corrected Calcium 10.3 H 8.5-10.1 MG/DL Total Bilirubin 0.6 0.1-1.0 MG/DL Aspartate Amino Transf (AST/SGOT) 310 H 5-34 U/L Alanine Aminotransferase (ALT/SGPT) 274 H 0-55 U/L Alkaline Phosphatase 226 H 40-136 U/L C-Reactive Protein High Sensitivity 30.38 H 0.00-0.50 MG/DL Total Protein 7.5 6.4-8.2 GM/DL Albumin 3.2 3.2-4.5 GM/DL My Orders Orders - ELKIN MENSAH APRN Cbc With Automated Diff (01/01/18 17:41) Comprehensive Metabolic Panel (01/01/18 17:41) Hs C Reactive Protein (01/01/18 17:41) Iv Heplock-Insert (Order) (01/01/18 17:41) Hand, Right, 3 Views (01/01/18 17:41) Us Venous Upper Ext Rt (01/01/18 17:41) Ketorolac Injection (Toradol Injection) (01/01/18 18:00) Methylprednisolone Sod Succ (Solu-Medrol (01/01/18 18:00) Rocephin 1 Gm Iv (1 X Dose) (01/01/18 19:00) Medications Given in ED Current Medications Medications Dose Ordered Sig/Hammad Route Start Time Stop Time Status Last Admin Dose Admin Ketorolac Tromethamine 15 mg ONCE ONCE IVP 01/01/18 18:00 01/01/18 18:01 DC 01/01/18 18:15 15 MG Methylprednisolone Sodium Succinate 125 mg ONCE ONCE IVP 01/01/18 18:00 01/01/18 18:01 DC 01/01/18 18:15 125 MG Vital Signs/I&O 01/01/18 17:30 Temp 98.0 Pulse 86 Resp 16 B/P (MAP) 137/87 (104) Pulse Ox 99 O2 Delivery Room Air Blood Pressure Mean: 104 Diagnostic Imaging Diagonstic Imaging: Xray Plain Films/CT/US/NM/MRI: chest Comments NAME: [facility]ND[facility] REC#: [id number] PT STATUS: REG ER : 1950 PHYSICIAN: ELKIN MENSAH APRN ADMIT DATE: 01/01/18/ER Draft Date of Exam:01/01/18 HAND, RIGHT, 3 VIEWS INDICATION: Right hand swelling. TIME OF EXAM: 6:27 p.m. EXAMINATION: Three views of the right hand were obtained. FINDINGS: Moderate soft tissue swelling about the dorsum of the right hand is seen. Metacarpals appear intact. Phalanges are intact. No fractures are seen. The carpus does show degenerative changes at the triscaphe and first CMC joints. There are degenerative changes involving multiple interphalangeal joints. Distal radius and ulna are intact. IMPRESSION: Soft tissue swelling along the dorsum of the hand. There are also chronic changes. No acute fracture is detected. Dictated on workstation # [id number] Dict: 01/01/181809 Trans: 01/01/181818 [facility] [id number] Interpreted by: JARRED JAIMES MD Electronically signed by: Departure Communication (Admissions) It is unclear whether this is simply inflammatory or infectious. Given the elevated CRP with a normal white count I suspect just inflammatory. We will treat with antibiotics and steroids. She will need to follow-up with primary care within 1 week for recheck of the elevated liver enzymes and swelling. Impression Primary Impression: Swelling of right hand Disposition: HOME, SELF-CARE Condition: Stable Departure-Patient Inst. Decision time for Depature: 18:25 Referrals: KRISTAL NICHOLSON MD (PCP/Family) Primary Care Physician Patient Instructions: Swelling Add. Discharge Instructions: 1. Return to ER for any worsening pain, swelling, fevers or other symptoms. Take steroids and antibiotics as directed. Call your doctor tomorrow for recheck on the swelling and the elevated liver enzymes. All discharge instructions reviewed with patient and/or family. Voiced understanding. Scripts Methylprednisolone (Medrol) 4 Mg Tab.ds.pk 4 MG PO UD, #1 PKG Prov: ELKIN MENSAH APRN 01/01/18 Cephalexin (Keflex) 500 Mg Capsule 500 MG PO TID, #15 CAP Prov: ELKIN MENSAH APRN 01/01/18 Copy Copies To 1: KRISTAL NICHOLSON MD, PETER J APRN Jan 01, 2018 17:51
[2018-01-01] MEDS ORDERED: KETOROLAC 30 MG/ML VIAL IVP ONE (18:00)
[2018-01-01] MEDS ORDERED: methylPREDNISolone 125 MG (Solu-MEDROL) VIAL IVP ONE (18:00)
[2018-01-01 18:09] LABS: BASOPHILS % (AUTO) 0 % (0-10); EOSINOPHILS # (AUTO) 0.1 10^3/uL (0.0-0.3); EOSINOPHILS % (AUTO) 1 % (0-10); HEMATOCRIT 26 % (35-52); HEMOGLOBIN 8.4 G/DL (11.5-16.0); LYMPHOCYTES # (AUTO) 1.4 X 10^3 (1.0-4.0); LYMPHOCYTES % (AUTO) 13 % (12-44); MEAN CORPUSCULAR HEMOGLOBIN 27 PG (25-34); MEAN CORPUSCULAR HGB CONC 32 G/DL (32-36); MEAN CORPUSCULAR VOLUME 84 FL (80-99); MEAN PLATELET VOLUME 8.7 FL (7.4-10.4); MONOCYTES # (AUTO) 0.8 X 10^3 (0.0-1.0); MONOCYTES % (AUTO) 7 % (0-12); NEUTROPHILS # (AUTO) 8.3 X 10^3 (1.8-7.8); NEUTROPHILS % (AUTO) 78 % (42-75); PLATELET COUNT 613 10^3/uL (130-400); RED BLOOD COUNT 3.11 10^6/uL (4.35-5.85); RED CELL DISTRIBUTION WIDTH 15.5 % (10.0-14.5); WHITE BLOOD COUNT 10.6 10^3/uL (4.3-11.0)
--- NOTE | 2018-01-01 18:20 | Diagnostic Imaging Report ---
INDICATION: Right hand swelling. TIME OF EXAM: 6:27 p.m. EXAMINATION: Three views of the right hand were obtained. FINDINGS: Moderate soft tissue swelling about the dorsum of the right hand is seen. Metacarpals appear intact. Phalanges are intact. No fractures are seen. The carpus does show degenerative changes at the triscaphe and first CMC joints. There are degenerative changes involving multiple interphalangeal joints. Distal radius and ulna are intact. IMPRESSION: Soft tissue swelling along the dorsum of the hand. There are also chronic changes. No acute fracture is detected. Dictated by: Dictated on workstation # [id number]
[2018-01-01 18:28] LABS: ALBUMIN 3.2 GM/DL (3.2-4.5); BILIRUBIN,TOTAL 0.6 MG/DL (0.1-1.0); CALCIUM 9.7 MG/DL (8.5-10.1); CREATININE SERUM 1.18 MG/DL (0.60-1.30); POTASSIUM 3.1 MMOL/L (3.6-5.0); TOTAL PROTEIN 7.5 GM/DL (6.4-8.2)
[2018-01-01] MEDS ORDERED: CEPH-507 PO (18:49)
[2018-01-01] MEDS ORDERED: METH4TAB PO (18:49)
[2018-01-01] MEDS ORDERED: cefTRIAXone FOR IV USE 1,000 MG in NS (IVPB) 50 ML IV ONE (19:00)
--- NOTE | 2018-01-01 19:48 | Diagnostic Imaging Report ---
INDICATION: Right wrist and hand swelling. Grayscale, color-flow and duplex Doppler evaluation of the right upper extremity deep venous system was performed. The right internal jugular vein as well as the right subclavian and axillary veins are patent. The brachial vein is patent. The basilic and cephalic as well as the radial and ulnar veins are patent. No thrombus is seen. IMPRESSION: No evidence of right upper extremity DVT. Dictated by: Dictated on workstation # [id number]
[2018-01-01 20:12] VITALS: BP 0/0
== END 2018-01-01 20:12 | disposition home or self-care (01) ==
LOC: EDUNIT# 17:25 → ER 17:27
DX: M79.89 Other specified soft tissue disorders (principal); M25.431 Effusion, right wrist; I11.0 Hypertensive heart disease with heart failure; I50.9 Heart failure, unspecified; E78.00 Pure hypercholesterolemia, unspecified; K21.9 Gastro-esophageal reflux disease without esophagitis; M17.12 Unilateral primary osteoarthritis, left knee; E11.9 Type 2 diabetes mellitus without complications; Z85.3 Personal history of malignant neoplasm of breast; Z86.010 Personal history of colon polyps; Z88.0 Allergy status to penicillin; Z88.8 Allergy status to other drugs, medicaments and biological substances; Z79.82 Long term (current) use of aspirin; Z79.51 Long term (current) use of inhaled steroids; Z90.12 Acquired absence of left breast and nipple; Z90.2 Acquired absence of lung [part of]
CPT/HCPCS: 36415; 73130; 80053; 85025; 86141; 96374; 96375

== ENCOUNTER → 2021-01-13 | Outpatient (CLI) | payer MEDICARE ==
[~2021-01-13] MED LIST changes: +CEPH-507 PO; -GLIM4TAB PO; +GLIM4TAB5 PO; -LISI-556 PO; +LISI-729 PO; +LORA-53 PO; -LORA-714 PO; +METH4TAB PO; -OXYC-471 PO; +OXYC1TAB11 PO; -RANI-515 PO; +RANI-609 PO; +SIMV40TA25 PO; -SIMV40TA4 PO
--- NOTE | 2021-01-13 15:01 | Diagnostic Imaging Report ---
INDICATION: Postmenopausal state COMPARISON: None available FINDINGS: AP Spine L1-L4: [BMD (g/cm2): 1.247] [T-Score: 0.4] [Z-Score: 0.9] [BMD Previous: NA] [BMD % Change: NA] LT Hip Neck: [BMD (g/cm2): 0.776] [T-Score: -1.9] [Z-Score: -0.9] LT Hip Total: [BMD (g/cm2):0.889] [T-Score:-0.9] [Z-Score: -0.3] [BMD Previous: NA] [BMD % Change: NA] RT Hip Neck: [BMD (g/cm2):0.819] [T-Score:-1.6] [Z-Score:-0.6] RT Hip Total: [BMD (g/cm2):0.872] [T-score:-1.1] [Z-Score:-0.4] [BMD Previous:NA] [BMD % Change:NA] *Indicates significant change from prior examination based on 95% confidence level. World Health Organization criteria for BMD interpretation classify patients as Normal (T-score at or above -1.0), Osteopenic (T-score between -1.0 and -2.5) or Osteoporotic (T-score at or below -2.5). LIMITATIONS AND MODIFICATION: None. FRACTURE RISK (FRAX SCORE): The ten year probability of (%): Major Osteoporotic Fracture: [16.0] Hip Fracture: [2.7] IMPRESSION: 1. Osteopenia (Low bone mass). 2. Baseline examination. 3. See below National Osteoporosis Foundation guidelines on when to potentially initiate pharmacologic therapy. Based on the National Osteoporosis Foundation Guidelines, pharmacologic treatment should be initiated in any of the following, unless clinical conditions suggest otherwise: * Any patient with prior fragility fracture of the hip or vertebrae. A spine fracture indicates 5X risk for subsequent spine fracture and 2X risk for subsequent hip fracture. * Osteoporosis (T-score <-2.5). * Postmenopausal women and men age 50 and older with low bone mass/osteopenia (T-score between -1.0 and -2.5) by DXA and 10-year major osteoporotic fracture greater than 20% or a 10-year probability of hip fracture greater than 3%. These fracture risks are supplied above in the FRAX score, if applicable. * Clinician judgement and/or patient preferences may indicate treatment for people with 10-year fracture probabilities above or below these levels. Dictated by: Dictated on workstation # [id number]
== END ==
LOC: RAD 13:30
PROVIDERS: ATTEND Family Medicine
DX: M85.80 Other specified disorders of bone density and structure, unspecified site (principal); Z78.0 Asymptomatic menopausal state
CPT/HCPCS: 77080

== ENCOUNTER 2021-12-16 06:12 | Outpatient (CLI) | payer MEDICARE ==
[~2021-12-16] VITALS: Ht 167.6 cm; Wt 112.5 kg
[~2021-12-16 06:12] MED LIST changes: -LISI-729 PO; +LISI5TAB20 PO
[2021-12-16] MEDS ORDERED: DULA1.5P2 SQ (14:44)
[2021-12-16] MEDS ORDERED: ROSU10TA28 PO (14:44)
[2021-12-16] MEDS ORDERED: INSU100I29 SQ (14:44)
[2021-12-16] MEDS ORDERED: FURO20TA4 PO (14:44)
[2021-12-16] MEDS ORDERED: MONT-40 PO (14:44)
[2021-12-16] MEDS ORDERED: POTA-177 PO (14:44)
[2021-12-16] MEDS ORDERED: CYCL10TA25 PO (14:44)
[2021-12-16] MEDS ORDERED: DULO60CA59 PO (14:44)
[2021-12-16] MEDS ORDERED: ALLO300T2 PO (14:44)
[2021-12-16] MEDS ORDERED: OMEP40CA6 PO (14:44)
[2021-12-16] MEDS ORDERED: TRAM50TA3 PO (14:44)
== END 2021-12-16 14:54 | disposition home or self-care (01) ==
LOC: PREOP 06:12
PROVIDERS: ATTEND Surgery
DX: Z01.818 Encounter for other preprocedural examination (principal)

== ENCOUNTER 2021-12-28 10:27 | Day surgery (SDC) | payer MEDICARE, MEDICAID ==
[~2021-12-28] VITALS: Ht 167.6 cm; Wt 112.5 kg
[~2021-12-28 10:27] MED LIST changes: +ALLO300T2 PO; +CYCL10TA25 PO; +DULA1.5P2 SQ; +DULO60CA59 PO; +FURO20TA4 PO; +INSU100I29 SQ; +MONT-40 PO; +OMEP40CA6 PO; +POTA-177 PO; +ROSU10TA28 PO; +TRAM50TA3 PO
[2021-12-28 10:50] VITALS: BP 112/66
--- NOTE | 2021-12-28 10:54 | Progress Note-Pre Operative ---
Pre-Operative Progress Note Date of Available H&P: Dec 03, 2021 Date H&P Reviewed: Dec 28, 2021 Time H&P Reviewed: 10:51 History & Physical: H&P Reviewed, Patient Examed, No changes noted Pre-Operative Diagnosis: Chronic gastritis, hx of polyps CONY WINKLER DO Dec 28, 2021 10:54
[2021-12-28] MEDS ORDERED: LACTATED RINGERS 1,000 ML IV STA (11:09)
[2021-12-28] MEDS ORDERED: HURRICAINE EXT TUBE (BENZOCAINE) XX PRN (11:15)
[2021-12-28] MEDS ORDERED: MIDAZOLAM 2 MG/2 ML (VERSED) VIAL ONE (12:54)
[2021-12-28] MEDS ORDERED: PROPOFOL INJECTION 50 ML IV ONE (12:55)
[2021-12-28 13:32] VITALS: BP 106/56
--- NOTE | 2021-12-28 13:33 | Progress Note-Post Operative ---
Post-Operative Progess Note Surgeon (s)/Gore Inserter (s) Surgeon CONY WINKLER DO Gore Inserter: Palomo Soto, MSIII Pre-Operative Diagnosis Chronic gastritis, hx of polyps Post-Operative Diagnosis Gastric ulcer gastritis hiatal hernia polyp colitis diverticula int hemorrhoids Procedure & Operative Findings Date of Procedure 12/28/21 Procedure Performed/Findings EGD with bx Colonoscopy with hot bx PROCEDURE NOTE: After informed consent was obtained, the patient was brought to the endoscopy suite, placed in bed in left lateral decubitus position. She was administered IV sedation by the WOMEN NURSE who then monitored vitals the entire time, heart rate, blood pressure and pulse ox and the scope was inserted down the mouth through the esophagus into the stomach. On the way down, noted some mild esophagitis, took a picture, pushed into the stomach, pushed past the antrum into the duodenum. Duodenum looked good. Pulled back and did a biopsy of antrum, then retroflexed the scope and saw an ulcer in the cardia. I also saw a moderate hiatal hernia, took a picture of this and then took a biopsy of the ulcer. Next I pulled the scope into the GE junction, took another picture of the hiatal hernia and then did a biopsy of the GE junction. Pushed the scope back into the stomach, suctioned all the air out of the stomach. At this point pulled the scope up the esophagus and out the mouth. Switched camera, switched gloves, went down below and started the colonoscopy. Pushed all the way into about 140 cm to get all the way to cecum. On the way in I noted multiple diverticula and a moderate colitis in the descending colon (possibly due to the gastroenteritis she had over the weekend); took picture of the these. Once in the cecum took a picture of the appendiceal orifice, noted the ileocecal valve and then slowly withdrew the scope. Insufflating to look circumferentially at the thorpe, starting in the cecum and up the ascending colon. Found a small polyp in the ascending colon and elected to remove with hot biopsy. Continued up to the hepatic flexure, then down the transverse colon, to the splenic flexure and into the descending colon. Here again I encountered the colitis and elected to do random cold biopsies through descending colon and into the sigmoid. Finally into the rectum, retroflexed in the rectal vault, saw some minimal internal hemorrhoids and took a picture of them. The patient tolerated the procedure and she recovered in the endoscopy suite. Recommended for repeat colonoscopy in 5 years Anesthesia Type IV sedation by WOMEN NURSE Estimated Blood Loss Estimated blood loss (mL): scant Specimens/Packing Specimens Removed antral bx cardia bx GE jxn bx Asc colon polyp random biopsies CONY WINKLER DO Dec 28, 2021 13:33
--- NOTE | 2021-12-28 13:34 | Endoscopy Discharge Instruct ---
Endo Procedure/Findings Findings 1.: Gastric Ulcer 2.: Hiatal Hernia 3.: Polyp 4.: Diverticulosis, Internal Hemorrhoids Discharge Instructions - Activity: You might feel a little sleepy until tomorrow. This is due to the me dicine you received to relax you. Until tomorrow, you should: NOT drive a car, operate machinery or power tools. NOT drink any alcoholic beverages. NOT make any important decisions or sign importortant papers. Do not return to work until tomorrow, unless otherwise instructed. Resume previous activities tomorrow. Diet: Start by taking liquids. If you tolerate liquids, advance to solid food. 1.: EGD in 1 year 2.: Colonscopy in 5 years Notify Physician - If you experience excessive bleeding, unusual abdominal pain, fever, or chest pain, contact your doctor immediately. CONY WINKLER DO Dec 28, 2021 13:34
[2021-12-28 13:37] VITALS: BP 90/51
[2021-12-28 13:45] VITALS: BP 98/50
[2021-12-28 14:08] VITALS: BP 108/53
--- NOTE | 2021-12-28 14:46 | Anesthesia-General Post-Op ---
MAC Patient Condition Mental Status/LOC: Same as Preop Cardiovascular: Satisfactory Nausea/Vomiting: Absent Respiratory: Satisfactory Pain: Controlled Complications: Absent Post Op Complications Complications None Follow Up Care/Instructions Patient Instructions None needed. Anesthesiology Discharge Order Discharge Order Patient is doing well, no complaints, stable vital signs, no apparent adverse anesthesia problems. No complications reported per nursing. AMANDA ONOFRE CRNA Dec 28, 2021 14:46
== END 2021-12-28 14:22 | disposition home or self-care (01) ==
LOC: ENDO 10:27
PROVIDERS: ATTEND Surgery
DX: Z12.11 Encounter for screening for malignant neoplasm of colon (principal); D12.2 Benign neoplasm of ascending colon; K52.9 Noninfective gastroenteritis and colitis, unspecified; K57.30 Diverticulosis of large intestine without perforation or abscess without bleeding; K64.8 Other hemorrhoids; K29.50 Unspecified chronic gastritis without bleeding; K44.9 Diaphragmatic hernia without obstruction or gangrene; K20.80 Other esophagitis without bleeding; K29.00 Acute gastritis without bleeding; E11.9 Type 2 diabetes mellitus without complications; E66.9 Obesity, unspecified; Z68.41 Body mass index [BMI] 40.0-44.9, adult; Z79.82 Long term (current) use of aspirin; Z79.4 Long term (current) use of insulin; Z79.84 Long term (current) use of oral hypoglycemic drugs; Z79.899 Other long term (current) drug therapy

== ENCOUNTER → 2022-03-24 | Outpatient (CLI) | payer MEDICARE, MEDICAID ==
[~2022-03-24] VITALS: Ht 167 cm; Wt 105.0 kg
[~2022-03-24] MED LIST changes: +CATHETER FLUSH 10 ML SYR IVP PRN; +LORA-1389 PO; -LORA-53 PO; +REGADENOSON 0.4 MG/5 ML SYR (LEXISCAN) IV ONE
[2022-03-24 13:48] VITALS: BP 122/71
--- NOTE | 2022-03-24 17:47 | Cardiology Stress Test Report ---
Stress Test Report Date of Procedure/Referring: Date of Procedure: Mar 24, 2022 PCP Heaven Sagastume MD Admitting Physician Admitting Physician: Attending Physician: Nika Gardner Baseline Heart Rate: 81 Baseline Blood Pressure: Blood Pressure Systolic: 122 Blood Pressure Diastolic: 71 Baseline Vitals Vital Signs Date Time Temp Pulse Resp B/P (MAP) Pulse Ox O2 Delivery O2 Flow Rate FiO2 03/24/22 13:48 81 122/71 (88) Baseline EKG: Baseline EKG: NSR Summary After explaining the procedure to the patient, she signed a consent and then brought to the stress nuclear laboratory. Patient received 0.4 mg Lexiscan for stress test, ECG, heart rate and blood pressure were monitored continuously. Resting and stress dose of radio tracer were injected, imaging was acquired and reviewed in short axis, horizontal long axis and vertical long axis views. TID: 1.12 SSS: 13 SDS: 8 EF: 54 1. Patient tolerated Lexiscan well 2. Reversible ischemia involving the whole inferior wall and inferolateral wall and inferior apex 3. Normal left ventricular size, ejection fraction 54% Copy Copies To 1: [facility]NANCY PATEL MD Mar 24, 2022 17:47
== END ==
LOC: CARD 11:22
PROVIDERS: ATTEND Physician Assistant
DX: I10 Essential (primary) hypertension (principal); I25.10 Atherosclerotic heart disease of native coronary artery without angina pectoris
CPT/HCPCS: 78452; 93017; A9502; C8929; 93306

== ENCOUNTER 2022-05-12 09:13 | Day surgery (SDC) | payer MEDICARE, MEDICAID ==
[~2022-05-12] VITALS: Ht 167.6 cm; Wt 110.6 kg
[2022-05-12] VITALS (10 sets, daily range): BP systolic 119–135; BP diastolic 58–78
[~2022-05-12 09:13] MED LIST changes: -CATHETER FLUSH 10 ML SYR IVP PRN; -REGADENOSON 0.4 MG/5 ML SYR (LEXISCAN) IV ONE
[2022-05-12] MEDS ORDERED: NS IV 1000 ML 1,000 ML ONE (09:32)
[2022-05-12] MEDS ORDERED: LIDOCAINE 1% INJ 20 ML VIAL ONE (09:32)
[2022-05-12] MEDS ORDERED: HEParin (CATH LAB) 2,000 ML IV ONE (09:32)
[2022-05-12] MEDS ORDERED: NS IV 1000 ML 1,000 ML IV SCH ×2 (09:45→12:00)
--- NOTE | 2022-05-12 10:06 | Diagnostic Imaging Report ---
INDICATION: Abnormal stress test, pre-heart catheterization evaluation. TECHNIQUE: Single view chest 9:50 AM. CORRELATION STUDY: 10/05/2017 FINDINGS: Heart size relatively stable. Mild prominence of the mediastinum particularly at the level of the ascending aorta. Pulmonary vasculature within normal limits. Unchanged elevated left diaphragm. No infiltrate. Schwertner screw left humeral head likely prior rotator cuff repair. IMPRESSION: 1. Negative appearing single view chest. Mild prominence of the mediastinum including the region of ascending aorta can be associated with aortic valve disease and/or systemic arterial hypertension. Dictated by: Dictated on workstation # [id number]
[2022-05-12 10:12] LABS: BILIRUBIN,URINE NEGATIVE (NEGATIVE); CLARITY,URINE CLEAR; COLOR,URINE YELLOW; GLUCOSE, URINE (UA) NEGATIVE (NEGATIVE); KETONES,URINE NEGATIVE (NEGATIVE); LEUKOCYTE ESTERASE ,URINE NEGATIVE (NEGATIVE); NITRITE,URINE NEGATIVE (NEGATIVE); PH,URINE 5.5 (5-9); PROTEIN,URINE NEGATIVE (NEGATIVE)
[2022-05-12 10:12] LABS: HEMATOCRIT 37 % (35-52); HEMOGLOBIN 12.2 g/dL (11.5-16.0); MEAN CORPUSCULAR HEMOGLOBIN 31 pg (25-34); MEAN CORPUSCULAR HGB CONC 33 g/dL (32-36); MEAN CORPUSCULAR VOLUME 93 fL (80-99); MEAN PLATELET VOLUME 9.2 fL (9.0-12.2); PLATELET COUNT 278 10^3/uL (130-400); WHITE BLOOD COUNT 14.1 10^3/uL (4.3-11.0)
[2022-05-12 10:18] LABS: BACTERIA,URINE TRACE /HPF; WBC,URINE RARE /HPF
[2022-05-12 10:22] LABS: INR 0.9 (0.8-1.4); PROTHROMBIN TIME PATIENT 12.9 SEC (12.2-14.7)
[2022-05-12 10:31] LABS: BILIRUBIN,TOTAL 0.5 MG/DL (0.1-1.0); CALCIUM 9.8 MG/DL (8.5-10.1); CREATININE SERUM 1.91 MG/DL (0.60-1.30); POTASSIUM 3.9 MMOL/L (3.6-5.0); TOTAL PROTEIN 7.2 GM/DL (6.4-8.2)
[2022-05-12] MEDS ORDERED: POLY30DR6 OP (10:35)
[2022-05-12] MEDS ORDERED: CALC-250 PO (10:35)
[2022-05-12] MEDS ORDERED: ACET325T38 PO (10:35)
[2022-05-12] MEDS ORDERED: CETI10TA17 PO (10:35)
[2022-05-12] MEDS ORDERED: ASPI-1238 PO (10:35)
[2022-05-12] MEDS ORDERED: fentaNYL INJ 100 MCG/2 ML AMP ONE (11:07)
[2022-05-12] MEDS ORDERED: MIDAZOLAM 5 MG/5 ML (VERSED) VIAL ONE (11:08)
--- NOTE | 2022-05-12 11:17 | Cardiac Procedure Note-CS/ASA ---
Pre-Procedure Note Pre-Op Procedure Note Date of Available H&P: Apr 29, 2022 Date H&P Reviewed: May 12, 2022 Time H&P Reviewed: 11:00 History & Physical: H&P Reviewed, Patient Examed, No changes noted Pre-Operative Diagnosis: CAD Conscious Sedation Pre-Proced Time 11:00 ASA Score 3 For ASA 3 and 4: Consider anesthesia and medical clearance. Also, for patients with a history of failed moderate sedation consider anesthesia. Airway Lungs Heart ASA score ASA 1: a normal healthy patient ASA 2: a patient with a mild systemic disease (mid diabetes, controlled hypertension, obesity ASA 3: a patient with a severe systemic disease that limits activity (angina, COPD, prior Myocardial infarction) ASA 4: a patient with an incapacitating disease that is a constant threat to life (CHF, renal failure) ASA 5: a moribund patient not expected to survive 24 hrs. (ruptured aneurysm) ASA 6: a declared brain- patient whose organs are being harvested. For emergent operations, add the letter E after the classification Mallampati Classification Grade 3 Sedation Plan Analgesia, Amnesia, Plan communicated to team members, Discussed options with patient/fam, Discussed risks with patient/fam The patient is an appropriate candidate to undergo the planned procedure, sedation, and anesthesia. The patient immediately re-assessed prior to indication. NANCY NUNEZ MD May 12, 2022 11:17
[2022-05-12] MEDS ORDERED: PATIENT MAY USE OWN MEDS, ALL PO SCH (12:00)
--- NOTE | 2022-05-12 12:00 | Discharge Inst-Post CATH ---
Discharge Inst-CATH/EP Problems Reviewed?: Yes Post Cardiac Cath/EP D/C Inst Follow Up/Plan Appointment with Dr. Chong's office in 2 to 4 weeks <b>CARDIAC CATH/EP PROCEDURE DISCHARGE INSTRUCTIONS</b> ACTIVITY * Go Home directly and rest. * Limit activity of the leg (or wrist if it was used) for 7 days including aer obics, swimming, jogging, bicycling, etc. * Restrict stair-climbing for 7 days if possible, if not, climb up with your non-cath leg, then bring together on the same step. * Avoid lifting, pushing, pulling or excessive movement of the affected extremi ty for 7 days. * Customary sexual activity may be resumed after 2 days-use caution not to use a position that strains or causes pain to the affected extremity. * No driving for 24 hours. * NO SMOKING. * Avoid straining for bowel movements for 7 days. * Gentle walking on level ground is allowed. * Returning to work will depend on the type of procedure and the results. Your doctor will discuss this with you. CALL YOUR DOCTOR FOR ANY OF THE FOLLOWING: *If bleeding from the puncture site occurs- Apply gentle pressure to site with clean cloth and call your doctor or EMS. * If a knot or lump forms under the skin, increases in size, or causes pain. * If bruising appears to be worsening or moving further down your leg instead of disappearing. * Temperature above 101 F. CARE OF YOUR GROIN INCISION; * Bruising or purple discoloration of the skin near the puncture site is common. * You may shower only, no bathtub bathing for 5 days. Be careful to avoid slipping as your leg may feel stiff. * If a closure device was used on your femoral artery, please see the attached guide regarding care of the device and your leg. * Leave dressing on FOR 24 hours. CARE OF YOUR WRIST INCISION; * Bruising or purple discoloration of the skin near the puncture site is common. * You may shower. * DO NOT submerge wrist. * Leave dressing on FOR 24 hours. NANCY CHONG MD May 12, 2022 12:00
--- NOTE | 2022-05-12 12:02 | Cardiac Cath Report ---
Cardiac Cath Report Physician (s)/Crap Shooter (s) Physician NANCY NUNEZ MD Pre-Procedure Diagnosis Pre-Procedure Diagnosis: CAD Post-Procedure Note Procedure Start Date: May 12, 2022 Name of Procedure: Left heart catheterization Findings/Procedure Note PROCEDURE NOTE: 71-year-old lady with history of hypertension, hyperlipidemia, has been having chest pain, had an abnormal stress test, had cardiac catheterization recommended. After explaining the procedure to the patient, all pros and cons were explained, all questions were answered. The patient signed the consent and then she was placed in the cardiac catheterization laboratory. Groin was prepped in SL fashion local anesthesia was used. Sheath placed in the right femoral artery. Colton' right and left catheter were used to access the coronary system. Colton right was prolapsed to the left ventricular cavity, pressure was measured, pullback LV to aorta was done, no left ventriculogram was done. At the end of the procedure the sheath was removed. Closure device was deployed FINDINGS: Hemodynamics LV 122/3, end-diastolic pressure of 3 Aorta 119/54 mean of 81 ANATOMY: Left Main is calcified with mild disease nonobstructive disease Left Anterior Descending has significant proximal calcification, mild disease less than 20% nonobstructive disease Left Circumflex is moderate in size with no significant obstructive disease Right Coronary Artery is dominant artery, with mild calcification, no obstructive disease less than 20% stenosis LV Gram was not done, pressure was measured CONCLUSION: 1. Calcified coronary system especially the left main and LAD, mild disease nonobstructive disease 2. Normal left ventricular end-diastolic pressure DISCUSSION AND RECOMMENDATION: Continue to maximize medical therapy, no intervention is warranted Anesthesia Type: Conscious Sedation Estimated blood loss (mL): 20 ml Contrast Amount: 15 ml Total Radiation Dose: 358 mGy Post-Procedure Diagnosis Post-operative diagnosis: Chest pain Coronary artery disease Hypertension Hyperlipidemia NANCY NUNEZ MD May 12, 2022 12:02
== END 2022-05-12 16:30 | disposition home or self-care (01) ==
LOC: CATH 09:13 → SDC 12:12 → CATH 16:30
PROVIDERS: ATTEND Internal Medicine Cardiovascular Disease
DX: I25.10 Atherosclerotic heart disease of native coronary artery without angina pectoris (principal); I10 Essential (primary) hypertension; E78.5 Hyperlipidemia, unspecified; E66.9 Obesity, unspecified; I65.23 Occlusion and stenosis of bilateral carotid arteries; N18.9 Chronic kidney disease, unspecified; E11.40 Type 2 diabetes mellitus with diabetic neuropathy, unspecified; E11.22 Type 2 diabetes mellitus with diabetic chronic kidney disease; M19.90 Unspecified osteoarthritis, unspecified site; Z79.84 Long term (current) use of oral hypoglycemic drugs; Z68.39 Body mass index [BMI] 39.0-39.9, adult; Z79.4 Long term (current) use of insulin; Z79.899 Other long term (current) drug therapy
CPT/HCPCS: 71045; 80053; 80061; 81000; 85027; 85610; 85730; 87081; 93005; 93458; C1760; C1894; 36415

== ENCOUNTER 2022-07-21 06:39 | Outpatient (CLI) | payer MEDICARE, MEDICAID ==
[~2022-07-21] VITALS: Ht 167.6 cm; Wt 106.6 kg
[~2022-07-21 06:39] MED LIST changes: +ACET325T38 PO; +ASPI-1238 PO; +CALC-250 PO; +CETI10TA17 PO; -INSU100I29 SQ; +INSU100I30 SQ; +POLY30DR6 OP
== END 2022-07-21 09:00 | disposition home or self-care (01) ==
LOC: PREOP 06:39
PROVIDERS: ATTEND Surgery
DX: Z01.818 Encounter for other preprocedural examination (principal)

== ENCOUNTER 2022-07-26 11:28 | Day surgery (SDC) | payer MEDICARE, MEDICAID ==
[~2022-07-26] VITALS: Ht 167.6 cm; Wt 106.6 kg
[2022-07-26] MEDS ORDERED: LACTATED RINGERS 1,000 ML IV STA (11:46)
[2022-07-26] MEDS ORDERED: HURRICAINE EXT TUBE (BENZOCAINE) XX PRN (12:00)
[2022-07-26 12:05] VITALS: BP 118/56
--- NOTE | 2022-07-26 12:12 | Progress Note-Pre Operative ---
Pre-Operative Progress Note Date of Available H&P: Jul 15, 2022 Date H&P Reviewed: Jul 26, 2022 Time H&P Reviewed: 12:08 History & Physical: H&P Reviewed, Patient Examed, No changes noted Pre-Operative Diagnosis: Hx of Gastric Ulcer CONY WINKLER DO Jul 26, 2022 12:11
[2022-07-26] MEDS ORDERED: PROPOFOL INJECTION 50 ML IV ONE (12:21)
--- NOTE | 2022-07-26 12:52 | Anesthesia-General Post-Op ---
MAC Patient Condition Mental Status/LOC: Same as Preop Cardiovascular: Satisfactory Nausea/Vomiting: Absent Respiratory: Satisfactory Pain: Controlled Complications: Absent Post Op Complications Complications None Follow Up Care/Instructions Patient Instructions None needed. Anesthesiology Discharge Order Discharge Order Patient is doing well, no complaints, stable vital signs, no apparent adverse anesthesia problems. No complications reported per nursing. BETHANY CONTRERAS CRNA Jul 26, 2022 12:52
--- NOTE | 2022-07-26 12:53 | Progress Note-Post Operative ---
Post-Operative Progess Note Surgeon (s)/Lens Maker (s) Surgeon CONY WINKLER DO Lens Maker: none Pre-Operative Diagnosis Hx of Gastric Ulcer Post-Operative Diagnosis Gastritis Hiatal Hernia Esophagitis Procedure & Operative Findings Date of Procedure 07/26/22 Procedure Performed/Findings EGD with biopsy PROCEDURE NOTE: After informed consent was obtained, the patient was brought to the endoscopy suite, placed in bed in left lateral decubitus position. She was administered IV sedation by the PICKER / PACKER who then monitored vitals the entire time, heart rate, blood pressure and pulse ox and the scope was inserted down the mouth through the esophagus into the stomach. On the way down, noted some mild esophagitis, took a picture, pushed into the stomach, pushed past the antrum into the duodenum. Duodenum looked good. Pulled back and did a biopsy of antrum, then retroflexed the scope, saw a grade 3 AFS hiatal hernia, took a picture of this and then pulled the scope into the GE junction, took another picture of the hiatal hernia and then did a biopsy of the GE junction. Pushed the scope back into the stomach, suctioned all the air out of the stomach. At this point pulled the scope up the esophagus and out the mouth. The patient tolerated the procedure, and she recovered in endoscopy suite. Anesthesia Type IV sedation by PICKER / PACKER Estimated Blood Loss Estimated blood loss (mL): scant Specimens/Packing Specimens Removed antral bx body of stomach bx GE jxn bx CONY WINKLER DO Jul 26, 2022 12:52
--- NOTE | 2022-07-26 12:54 | Endoscopy Discharge Instruct ---
Endo Procedure/Findings Findings 1.: Gastritis 2.: Hiatal Hernia 3.: Other Findings (esophagitis) Discharge Instructions - Activity: You might feel a little sleepy until tomorrow. This is due to the medicine you received to relax you. Until tomorrow, you should: NOT drive a car, operate machinery or power tools. NOT drink any alcoholic beverages. NOT make any important decisions or sign importortant papers. Do not return to work until tomorrow, unless otherwise instructed. Resume previous activities tomorrow. Diet: Start by taking liquids. If you tolerate liquids, advance to solid food. 1.: EGD in 3 years Notify Physician - If you experience excessive bleeding, unusual abdominal pain, fever, or chest pain, contact your doctor immediately. Follow-Up: Other Follow up in my office in one week CONY WINKLER DO Jul 26, 2022 12:53
[2022-07-26 12:55] VITALS: BP 95/52
[2022-07-26 13:00] VITALS: BP 93/54
[2022-07-26 13:55] VITALS: BP 93/54
== END 2022-07-26 13:55 | disposition home or self-care (01) ==
LOC: ENDO 11:28
PROVIDERS: ATTEND Surgery
DX: Z09 Encounter for follow-up examination after completed treatment for conditions other than malignant neoplasm (principal); K29.70 Gastritis, unspecified, without bleeding; K44.9 Diaphragmatic hernia without obstruction or gangrene; K21.00 Gastro-esophageal reflux disease with esophagitis, without bleeding; E66.9 Obesity, unspecified; R07.89 Other chest pain; Z68.37 Body mass index [BMI] 37.0-37.9, adult